=== PATIENT | male | born 1970 | race Hispanic/Latino ===

== ENCOUNTER 2022-04-11 02:22 | Inpatient (IN) | payer MEDICARE ==
[2022-04-11] MEDS ORDERED: SODIUM CHLORIDE 0.9% 1000 ML 1,000 ML IV ONE (02:40)
--- NOTE | 2022-04-11 02:52 | Emergency Department Report ---
HPI - General Time Seen by Provider: 04/11/22 02:31 - HPI HPI: Room 25 The patient is a 52-year-old male presenting with a chief complaint of headache and altered mental status. Patient has a history of diabetes and reportedly lives in his car [place]. The patient's friend went to check on him and found him with decreased responsiveness in his car. The patient states he has had a headache for the past 2 hours and since yesterday he has had syncopal episodes. Patient appears lethargic and does not answer all questions during the interview. Patient denies preceding trauma. ED Past Medical Hx - Past Medical History Hx Hypertension: Yes Hx Diabetes: Yes - Surgical History Past Surgical History?: No - Family History Family history: no significant - Social History Smoking Status: Never Smoker Substance Use Type: Marijuana ED Review of Systems ROS: Stated complaint: HYPERGLYCEMIA Other details as noted in HPI Comment: Unobtainable due to pts medical conditions Neurological: headache Physical Exam - Physical Exam Physical Exam: GENERAL: The patient is well-developed well-nourished male appearing lethargic on stretcher awakening to verbal stimuli. [] HEENT: Normocephalic. Atraumatic. Patient has moist mucous membranes. NECK: Supple. Trachea midline CHEST/LUNGS: Clear to auscultation. There is no respiratory distress noted. HEART/CARDIOVASCULAR: Regular. There is no tachycardia. There is no gallop rub or murmur. ABDOMEN: Abdomen is soft, nontender. Patient has normal bowel sounds. There is no abdominal distention. SKIN: There is no rash. There is no edema. There is no diaphoresis. NEURO: The patient is lethargic but awakens and answers questions to verbal stimuli. The patient is intermittently cooperative with history but not cooperative with neurologic exam. The patient has normal speech MUSCULOSKELETAL: There is no evidence of acute injury. ED Medical Decision Making - Lab Data Result diagrams: 04/11/22 02:45 04/11/22 02:45 - EKG Data -: EKG Interpreted by Me EKG shows normal: sinus rhythm Rate: normal - EKG Data When compared to previous EKG there are: previous EKG unavailable Interpretation: nonspecific ST-T wave matthew (T wave inversions in leads I and aVL) - Radiology Data Radiology results: report reviewed (CT head), image reviewed (CT head) [facility] [address] [place] [address] Cat Scan Report Signed Patient: RONN LINDSAY MR#: [id number] [birth year] : 1970 Acct:[id number] Age/Sex: 52 / M ADM Date: 04/11/22 Loc: ED Attending Dr: Ordering Physician: ELIJAH LOGAN MD Date of Service: 04/11/22 Procedure(s): CT head/brain wo con Accession Number(s): [id number] cc: ELIJAH LOGAN MD CT HEAD WITHOUT CONTRAST INDICATION / CLINICAL INFORMATION: Headache. TECHNIQUE: All CT scans at this location are performed using CT dose reduction for ALARA by means of automated exposure control. COMPARISON: None available. FINDINGS: BRAIN PARENCHYMA: No acute intracranial hemorrhage. No evidence of recent infarct. No mass effect or midline shift. Mild chronic small vessel ischemic changes. VENTRICULAR SYSTEM/EXTRA-AXIAL SPACES: Ventricles are normal for age. No extra- axial fluid collection. ORBITS: Normal as visualized. SKELETAL SYSTEM/SOFT TISSUES: Normal bones and soft tissues. PARANASAL SINUSES/MASTOID AIR CELLS: No significant abnormality. ADDITIONAL FINDINGS: None. IMPRESSION: 1. No acute intracranial abnormality. Signer Name: Reymundo Richards MD Signed: 04/11/2022 3:41 AM Workstation Name: [id number] Transcribed By: SANTA Dictated By: REYMUNDO RICHARDS MD Electronically Authenticated By: REYMUNDO RICHARDS MD Signed Date/Time: 04/11/22340 DD/ 0 TD/TT: - Differential Diagnosis ICH, DKA, electrolyte abnormality, intoxication, dehydration Critical care attestation.: If time is entered above; I have spent that time in minutes in the direct care of this critically ill patient, excluding procedure time. ED Disposition Clinical Impression: Altered mental status, Diabetic hyperosmolar non-ketotic state, Elevated troponin Disposition: ADMITTED INPATIENT Is pt being admited?: Yes Does the pt Need Aspirin: No Condition: Stable Instructions: Diabetes Mellitus Type 2 in Adults (ED) Time of Disposition: 04:40 (Care transferred to hospitalist (Dr. Mcbride))
[2022-04-11 03:02] LABS: Basophils # (Auto) 0.1 K/mm3 (0.0-0.1); Basophils % (Auto) 0.7 % (0.0-1.8); Hematocrit 48.2 % (35.5-45.6); Hemoglobin 15.1 gm/dl (11.8-15.2); Lymphocytes # (Auto) 1.6 K/mm3 (1.2-5.4); Lymphocytes % (Auto) 8.2 % (13.4-35.0); Mean Corpuscular HGB Conc 31 % (32-34); Mean Corpuscular Volume 84 fl (84-94); Monocytes # (Auto) 0.9 K/mm3 (0.0-0.8); Monocytes % (Auto) 4.6 % (0.0-7.3); Platelet Count 240 K/mm3 (140-440); Red Blood Count 5.73 M/mm3 (3.65-5.03); Red Cell Distribution Width 14.8 % (13.2-15.2)
[2022-04-11 03:12] LABS: INR 0.92 (0.87-1.13)
[2022-04-11 03:20] LABS: Creatine Kinase MB 12.7 ng/mL (0.0-4.0)
[2022-04-11 03:22] LABS: BUN/Creatinine Ratio 17; Blood Urea Nitrogen 53 mg/dL (9-20); Calcium 10.2 mg/dL (8.4-10.2); Hemolysis Index 32
--- NOTE | 2022-04-11 03:45 | Cat Scan Report ---
CT HEAD WITHOUT CONTRAST INDICATION / CLINICAL INFORMATION: Headache. TECHNIQUE: All CT scans at this location are performed using CT dose reduction for ALARA by means of automated exposure control. COMPARISON: None available. FINDINGS: BRAIN PARENCHYMA: No acute intracranial hemorrhage. No evidence of recent infarct. No mass effect or midline shift. Mild chronic small vessel ischemic changes. VENTRICULAR SYSTEM/EXTRA-AXIAL SPACES: Ventricles are normal for age. No extra-axial fluid collection . ORBITS: Normal as visualized. SKELETAL SYSTEM/SOFT TISSUES: Normal bones and soft tissues. PARANASAL SINUSES/MASTOID AIR CELLS: No significant abnormality. ADDITIONAL FINDINGS: None. IMPRESSION: 1. No acute intracranial abnormality. Signer Name: Alonso Richards MD Signed: 04/11/2022 3:41 AM Workstation Name: [id number]
[2022-04-11 04:20] LABS: Chol/HDL Ratio 4.88 %; HDL Cholesterol 27 mg/dL (40-59); LDL Cholesterol,Direct TNR mg/dL (50-130)
[2022-04-11 04:40] LABS: Bacteria,Urine 1+ /HPF (Negative); Bilirubin,Urine NEG (Negative); Blood,Urine MOD (Negative); Color,Urine Straw (Yellow); Mucus,Urine FEW /HPF; Protein,Urine <15 mg/dL mg/dL (Negative); RBC,Urine < 1.0 /HPF (0.0-6.0); Urobilinogen,Urine < 2.0 mg/dL (<2.0)
[2022-04-11] MEDS ORDERED: CLOPIDOGREL 300 MG TAB PO ONE (04:40)
[2022-04-11 04:41] LABS: Amphetamine Screen,Urine PRESUMPTIVE NEGATIVE; Benzodiazepines Screen,Urine PRESUMPTIVE NEGATIVE; Cannabinoid Screen,Urine PRESUMPTIVE POSITIVE; Cocaine Screen,Urine PRESUMPTIVE NEGATIVE; Methadone Screen,Urine PRESUMPTIVE NEGATIVE; Opiate Screen,Urine PRESUMPTIVE NEGATIVE
[2022-04-11 05:06] LABS: Calcium 10.3 mg/dL (8.4-10.2)
[2022-04-11] MEDS ORDERED: ACETAMINOPHEN 325 MG TAB PO PRN (05:15)
--- NOTE | 2022-04-11 05:28 | History and Physical Report ---
History of Present Illness Date of examination: 04/11/22 Date of admission: 04/11/22 Chief complaint: Altered mental status History of present illness: 52-year-old male presenting with past medical history of hypertension and diabetes was brought to the emergency room because of headache and altered mental status. Patient has a history of diabetes and reportedly lives [place] his car [place]. The patient's friend went to check on him and found him with decreased responsiveness in his car. The patient states he has had a headache for the past 2 hours and since yesterday he has had syncopal episodes. Patient appears lethargic and does not answer all questions during the interview. Patient denies preceding trauma. In the emergency room patient is found to have glucose of 1147, BUN of 53 creatinine 3.1, bicarb 23, anion gap 31 also patient troponin is 0.0100 and CK8 22. Still going to admit the patient to the ICU we will put the patient IV fluid insulin drip will consult critical care as well as cardiology as well as nephrology for evaluation Past History Past Medical History: diabetes, hypertension Past Surgical History: No surgical history Social history: no significant social history (Marijuana abuse), other Family history: hypertension Medications and Allergies Allergies Allergy/AdvReac Type Severity Reaction Status Date / Time No Known Allergies Allergy Unverified 04/11/22 03:43 Active Meds: Active Medications Acetaminophen (Acetaminophen 325 Mg Tab) 650 mg PO Q4H PRN PRN Reason: Pain MILD(1-3)/Fever >100.5/TORRES Acetaminophen (Acetaminophen 325 Mg Tab) 650 mg PO Q6H PRN PRN Reason: Pain, Mild (1-3) Albuterol (Albuterol 2.5 Mg/3 Ml Nebu) 2.5 mg IH Q3HRT PRN PRN Reason: Shortness Of Breath Albuterol/Ipratropium (Ipratropium/Albuterol Sulfate 3 Ml Ampul.Neb) 1 ampul IH Q6HRT VERNON Aspirin (Aspirin Ec 325 Mg Tab) 325 mg PO QDAY VERNON Atorvastatin Calcium (Atorvastatin 40 Mg Tab) 40 mg PO QHS VERNON Dextrose (Dextrose 50% In Water (25gm) 50 Ml Syringe) 0 ml IV Q30MIN PRN; Protocol PRN Reason: Hypoglycemia Famotidine (Famotidine 20 Mg/2 Ml Inj) 20 mg IV BID VERNON Heparin Sodium (Porcine) (Heparin 5,000 Unit/1 Ml Vial) 5,000 unit SUB-Q Q12HR VERNON Insulin Human Regular 100 (units/ Sodium Chloride) 100 mls @ 10 mls/hr IV TITR VERNON; Protocol Insulin Human Regular 100 (units/ Sodium Chloride) 100 mls @ 1 mls/hr IV TITR VERNON; Protocol Sodium Chloride (Nacl 0.45% 1000 Ml) 1,000 mls @ 150 mls/hr IV DIRECT VERNON Potassium Chloride/Dextrose/Sod Cl (D5w/0.45% Nacl/Kcl 20 Meq) 20 meq in 1,000 mls @ 125 mls/hr IV DIRECT VERNON Morphine Sulfate (Morphine 2 Mg/1 Ml Inj) 2 mg IV Q4H PRN PRN Reason: Pain, Moderate (4-6) Morphine Sulfate (Morphine 4 Mg/1 Ml Inj) 4 mg IV Q4H PRN PRN Reason: Pain , Severe (7-10) Nitroglycerin (Nitroglycerin 0.4 Mg Tab Subl) 0.4 mg SL Q5M PRN PRN Reason: Chest Pain Ondansetron HCl (Ondansetron 4 Mg/2 Ml Inj) 4 mg IV Q8H PRN PRN Reason: Nausea And Vomiting Sodium Chloride (Sodium Chloride 0.9% 10 Ml Flush Syringe) 10 ml IV BID VERNON Sodium Chloride (Sodium Chloride 0.9% 10 Ml Flush Syringe) 10 ml IV PRN PRN PRN Reason: LINE FLUSH Sodium Chloride (Sodium Chloride 0.9% 10 Ml Flush Syringe) 10 ml IV PRN PRN PRN Reason: LINE FLUSH Tramadol HCl (Tramadol 50 Mg Tab) 50 mg PO Q6H PRN PRN Reason: Pain, Moderate (4-6) Review of Systems All systems: negative Constitutional: fatigue, weakness, malaise, lethargy, other (Altered mental status, headache) Exam - Constitutional Vitals: Temp Pulse Resp BP Pulse Ox 157/93 96 04/11/22 03:31 04/11/22 05:05 General appearance: Present: no acute distress, well-nourished - EENT Eyes: Present: PERRL ENT: hearing intact, clear oral mucosa - Neck Neck: Present: supple, normal ROM - Respiratory Respiratory effort: normal Respiratory: bilateral: diminished - Cardiovascular Heart Sounds: Present: S1 & S2. Absent: rub, click - Extremities Extremities: pulses symmetrical, No edema Peripheral Pulses: within normal limits - Abdominal General gastrointestinal: Present: soft, non-tender, non-distended, normal bowel sounds Male genitourinary: Present: normal - Integumentary Integumentary: Present: clear, warm, dry - Musculoskeletal Musculoskeletal: gait normal, strength equal bilaterally - Psychiatric Psychiatric: other (Patient is lethargic) - Neurologic Neurologic: CNII-XII intact, moves all extremities, other (Patient is altered mental status) HEART Score - HEART Score Troponin: Troponin T 0.100 ng/mL (0.00-0.029) H 04/11/22 02:45 Results - Labs CBC & Chem 7: 04/11/22 02:45 04/11/22 04:31 Labs: Laboratory Last Values WBC 19.1 K/mm3 (4.5-11.0) H 04/11/22 02:45 RBC 5.73 M/mm3 (3.65-5.03) H 04/11/22 02:45 Hgb 15.1 gm/dl (11.8-15.2) 04/11/22 02:45 Hct 48.2 % (35.5-45.6) H 04/11/22 02:45 MCV 84 fl (84-94) 04/11/22 02:45 MCH 26 pg (28-32) L 04/11/22 02:45 MCHC 31 % (32-34) L 04/11/22 02:45 RDW 14.8 % (13.2-15.2) 04/11/22 02:45 Plt Count 240 K/mm3 (140-440) 04/11/22 02:45 Lymph % (Auto) 8.2 % (13.4-35.0) L 04/11/22 02:45 Metcalfe % (Auto) 4.6 % (0.0-7.3) 04/11/22 02:45 Eos % (Auto) 0.0 % (0.0-4.3) 04/11/22 02:45 Baso % (Auto) 0.7 % (0.0-1.8) 04/11/22 02:45 Lymph # (Auto) 1.6 K/mm3 (1.2-5.4) 04/11/22 02:45 Metcalfe # (Auto) 0.9 K/mm3 (0.0-0.8) H 04/11/22 02:45 Eos # (Auto) 0.0 K/mm3 (0.0-0.4) 04/11/22 02:45 Baso # (Auto) 0.1 K/mm3 (0.0-0.1) 04/11/22 02:45 Seg Neutrophils % 86.5 % (40.0-70.0) H 04/11/22 02:45 Seg Neutrophils # 16.5 K/mm3 (1.8-7.7) H 04/11/22 02:45 PT 13.4 Sec. (12.2-14.9) 04/11/22 02:45 INR 0.92 (0.87-1.13) 04/11/22 02:45 APTT 21.0 Sec. (24.2-36.6) L 04/11/22 02:45 D-Dimer < 135.00 ng/mlDDU (0-234) 04/11/22 02:45 VBG pH 7.320 (7.320-7.420) 04/11/22 02:45 Sodium 141 mmol/L (137-145) 04/11/22 04:31 Potassium 3.6 mmol/L (3.6-5.0) 04/11/22 04:31 Chloride 93.0 mmol/L (98-107) L 04/11/22 04:31 Carbon Dioxide 23 mmol/L (22-30) 04/11/22 02:45 Anion Gap 31 mmol/L 04/11/22 02:45 BUN 53 mg/dL (9-20) H 04/11/22 02:45 Creatinine 3.1 mg/dL (0.8-1.3) H 04/11/22 02:45 Estimated GFR 24 ml/min 04/11/22 04:31 BUN/Creatinine Ratio 19 % 04/11/22 04:31 Glucose 1147 mg/dL (75-100) H* 04/11/22 02:45 POC Glucose > 600 mg/dL (70-105) H 04/11/22 02:48 Calcium 10.2 mg/dL (8.4-10.2) 04/11/22 02:45 Total Creatine Kinase 822 units/L (55-170) H 04/11/22 02:45 CK-MB (CK-2) 12.7 ng/mL (0.0-4.0) H 04/11/22 02:45 CK-MB (CK-2) Rel Index 1.5 (0-4) 04/11/22 02:45 Troponin T 0.100 ng/mL (0.00-0.029) H 04/11/22 02:45 Triglycerides 527 mg/dL (2-149) H 04/11/22 02:45 Cholesterol 132 mg/dL (50-199) 04/11/22 02:45 LDL Cholesterol Direct TNR 04/11/22 02:45 HDL Cholesterol 27 mg/dL (40-59) L 04/11/22 02:45 Cholesterol/HDL Ratio 4.88 % 04/11/22 02:45 Urine Color Straw (Yellow) 04/11/22 Unknown Urine Turbidity Clear (Clear) 04/11/22 Unknown Urine pH 5.0 (5.0-7.0) 04/11/22 Unknown Ur Specific [place] 1.026 (1.003-1.030) 04/11/22 Unknown Urine Protein <15 mg/dl mg/dL (Negative) 04/11/22 Unknown Urine Glucose (UA) >=500 mg/dL (Negative) 04/11/22 Unknown Urine Ketones 20 mg/dL (Negative) 04/11/22 Unknown Urine Blood Mod (Negative) 04/11/22 Unknown Urine Nitrite Neg (Negative) 04/11/22 Unknown Urine Bilirubin Neg (Negative) 04/11/22 Unknown Urine Urobilinogen < 2.0 mg/dL (<2.0) 04/11/22 Unknown Ur Leukocyte Esterase Neg (Negative) 04/11/22 Unknown Urine WBC (Auto) 2.0 /HPF (0.0-6.0) 04/11/22 Unknown Urine RBC (Auto) < 1.0 /HPF (0.0-6.0) 04/11/22 Unknown U Epithel Cells (Auto) < 1.0 /HPF (0-13.0) 04/11/22 Unknown Urine Bacteria (Auto) 1+ /HPF (Negative) 04/11/22 Unknown Urine Mucus Few /HPF 04/11/22 Unknown Urine Opiates Screen Presumptive negative 04/11/22 Unknown Urine Methadone Screen Presumptive negative 04/11/22 Unknown Ur Barbiturates Screen Presumptive negative 04/11/22 Unknown Ur Phencyclidine Scrn Presumptive negative 04/11/22 Unknown Ur Amphetamines Screen Presumptive negative 04/11/22 Unknown U Benzodiazepines Scrn Presumptive negative 04/11/22 Unknown Urine Cocaine Screen Presumptive negative 04/11/22 Unknown U Marijuana (THC) Screen Presumptive positive 04/11/22 Unknown Plasma/Serum Alcohol < 0.01 % (0-0.07) 04/11/22 02:52 - Imaging and Cardiology CT Scan - head: report reviewed Assessment and Plan VTE prophylaxis?: Chemical Plan of care discussed with patient/family: Yes - Patient Problems (1) Diabetic hyperosmolar non-ketotic state Status: Acute Plan to address problem: Admit the patient to the critical care. NPO. Half-normal saline at the rate of 150 cc/h. Insulin drip as per protocol. We do the serial BMP. We also consult critical care evaluation. Recheck BMP in the morning. Diabetic education (2) Acute metabolic encephalopathy Status: Acute (3) Elevated troponin Status: Acute Plan to address problem: Aspirin 325 mg p.o. daily. Lipitor 40 mg p.o. daily. Nitroglycerin as needed. Serial cardiac enzymes. Echocardiogram. Cardiology evaluation (4) Hypertension Status: Acute Plan to address problem: Hydralazine 10 mg IV every 6 hours as needed. We will monitor the patient closely (5) Acute kidney injury superimposed on CKD Status: Acute Plan to address problem: Avoid nephrotoxic drug. Renally dose medication. Half-normal saline at the rate of 150 cc/h. Nephrology consult. Recheck BMP in the morning (6) DVT prophylaxis Status: Acute Plan to address problem: Heparin 5000 units subcu every 12 hours for DVT prophylaxis. Pepcid 20 mg p.o. twice daily for GI prophylaxis. Patient is a full code
[2022-04-11] MEDS ORDERED: ALBUTEROL 2.5 MG/3 ML NEBU IH PRN (05:30)
[2022-04-11] MEDS ORDERED: SODIUM CHLORIDE 0.9% 1000 ML 1,000 ML ONE ×2 (05:50→13:28)
[2022-04-11] MEDS ORDERED: ONDANSETRON 4 MG/2 ML INJ IV PRN (06:00)
[2022-04-11] MEDS ORDERED: SODIUM CHLORIDE 0.45% 1000 ML 1,000 ML IV SCH (06:00)
[2022-04-11] MEDS ORDERED: DEXTROSE 50% IN WATER (25GM) 50 ML SYRINGE IV PRN (06:00)
[2022-04-11] MEDS ORDERED: NITROGLYCERIN 0.4 MG TAB SUBL SL PRN (06:00)
[2022-04-11] MEDS ORDERED: MORPHINE 2 MG/1 ML INJ IV PRN (06:00)
[2022-04-11] MEDS ORDERED: MORPHINE 4 MG/1 ML INJ IV PRN (06:00)
[2022-04-11] MEDS ORDERED: traMADol 50 MG TAB PO PRN (06:00)
[2022-04-11] MEDS ORDERED: INSULIN REGULAR, HUMAN 100 UNITS in SODIUM CHLORIDE 0.9% 99 ML IV SCH (06:00)
[2022-04-11] MEDS ORDERED: IPRATROPIUM/ALBUTEROL SULFATE 3 ML AMPUL.NEB IH SCH (08:00)
--- NOTE | 2022-04-11 08:26 | Progress Note ---
<NOEWILBILLIERUSTYHARRY - Last Filed: 04/11/22 17:31> Assessment and Plan Assessment and plan: - Patient Problems (1) Diabetic hyperosmolar non-ketotic state Status: Acute Plan to address problem: Continue IV hydration and Insulin drip as per protocol. Serial BMP and Monitor electrolytes and replace PRN (2) Acute metabolic encephalopathy Status: Acute [place] patient to place and time and monitor mental status PRN ativan for agitation Continue IV hydration (3) Elevated troponin Status: Acute Plan to address problem: Aspirin 325 mg p.o. daily. Lipitor 40 mg p.o. daily. Nitroglycerin as needed. Serial cardiac enzymes. Echocardiogram. Cardiology evaluation (4) Hypertension Status: Acute Plan to address problem: Hydralazine 10 mg IV every 6 hours as needed. We will monitor the patient closely Monitor blood pressure (5) Acute kidney injury superimposed on CKD Status: Acute Plan to address problem: Avoid nephrotoxic drug. Renally dose medication. Nephrology consult. Continue aggressive volume resuscitation strict i/os and monitor kidney function (6) Leukocytosis (leucocytosis) Current Visit: Yes Status: Acute Plan to address problem: Unknown cause. Urinalysis showed no evidence of UTI temperature 99.8 Monitor vital signs and WBC Blood culture times times-f/u with result Empiric antibiotic and Will consult ID if needed. (7) Electrolyte imbalance Current Visit: Yes Status: Acute Plan to address problem: Low potassium and phosphate Replace potassium and magnesium Monitor per protocol (8) DVT prophylaxis- SQ heparin Plan to address problem: Heparin 5000 units subcu every 12 hours for DVT prophylaxis. Pepcid 20 mg p.o. twice daily for GI prophylaxis. Patient is a full code The high probability of a clinically significant, sudden or life threatening deterioration of the [multiple] system(s) required my full and direct attention, intervention and personal management. The aggregate critical care time was [60] minutes. This time is in addition to time spent performing reported procedures but includes the following: [x] Data Review and interpretation [x] Patient assessment and monitoring of vital signs [x] Documentation [x] Medication orders and management Disposition Plan: icu Total Time Spent with Patient (Minutes): 60 Total Time Spent with Patient (Minutes): 60 minutes History Interval history: Patient seen at bedside. Patient agitated and pulled his IV access. Ativan every 4hrs PRN ordered. Will apply bilateral arm restraint for safety if needed. Elevated WBC 19.1-Blood culture ordered. Reviewed Imaging Engineer note and reces-ROBERT likely 2/2 to elevated blood sugar Called by patient nurse-patient restless and agitated-on bilateral arm mitten. Pt was given ativan 2mg at 12:28 pm and he is on precedex for sedation. At 1300pm-pt blood pressure dropped 67/49 with map of 41. Patient assessed-he has shallow breathing and not responsive. Ramazicon 0.2mg given IV. NS bolus started. Patient condition improved. breathing stable and regular. Blood pressure improved 81/47 and 95/64 with map of 71. Hospitalist Physical - Constitutional Vitals: Temp Pulse Resp BP Pulse Ox 93 H 10 L 119/68 92 04/11/22 06:45 04/11/22 06:45 04/11/22 07:57 04/11/22 06:45 General appearance: Present: mild distress, obese, other (agitation and restless) - EENT ENT: hearing intact - Respiratory Respiratory effort: normal Respiratory: bilateral: diminished - Cardiovascular Rhythm: regular Heart Sounds: Present: S1 & S2 - Extremities Extremities: no ischemia, No edema, Full ROM - Integumentary Integumentary: Present: clear, warm, dry - Psychiatric Psychiatric: agitated - Allied Health Allied health notes reviewed: nursing HEART Score - HEART Score Troponin: Troponin T 0.100 ng/mL (0.00-0.029) H 04/11/22 02:45 Results - Labs CBC & Chem 7: 04/11/22 06:30 04/11/22 13:07 Labs: Laboratory Last Values WBC 19.1 K/mm3 (4.5-11.0) H 04/11/22 02:45 RBC 5.73 M/mm3 (3.65-5.03) H 04/11/22 02:45 Hgb 15.1 gm/dl (11.8-15.2) 04/11/22 02:45 Hct 48.2 % (35.5-45.6) H 04/11/22 02:45 MCV 84 fl (84-94) 04/11/22 02:45 MCH 26 pg (28-32) L 04/11/22 02:45 MCHC 31 % (32-34) L 04/11/22 02:45 RDW 14.8 % (13.2-15.2) 04/11/22 02:45 Plt Count 240 K/mm3 (140-440) 04/11/22 02:45 Lymph % (Auto) 8.2 % (13.4-35.0) L 04/11/22 02:45 [place] % (Auto) 4.6 % (0.0-7.3) 04/11/22 02:45 Eos % (Auto) 0.0 % (0.0-4.3) 04/11/22 02:45 Baso % (Auto) 0.7 % (0.0-1.8) 04/11/22 02:45 Lymph # (Auto) 1.6 K/mm3 (1.2-5.4) 04/11/22 02:45 [place] # (Auto) 0.9 K/mm3 (0.0-0.8) H 04/11/22 02:45 Eos # (Auto) 0.0 K/mm3 (0.0-0.4) 04/11/22 02:45 Baso # (Auto) 0.1 K/mm3 (0.0-0.1) 04/11/22 02:45 Seg Neutrophils % 86.5 % (40.0-70.0) H 04/11/22 02:45 Seg Neutrophils # 16.5 K/mm3 (1.8-7.7) H 04/11/22 02:45 PT 13.4 Sec. (12.2-14.9) 04/11/22 02:45 INR 0.92 (0.87-1.13) 04/11/22 02:45 APTT 21.0 Sec. (24.2-36.6) L 04/11/22 02:45 D-Dimer < 135.00 ng/mlDDU (0-234) 04/11/22 02:45 VBG pH 7.320 (7.320-7.420) 04/11/22 02:45 Sodium 141 mmol/L (137-145) 04/11/22 04:31 Potassium 3.6 mmol/L (3.6-5.0) 04/11/22 04:31 Chloride 93.0 mmol/L (98-107) L 04/11/22 04:31 Carbon Dioxide 20 mmol/L (22-30) L 04/11/22 04:31 Anion Gap 32 mmol/L 04/11/22 04:31 BUN 54 mg/dL (9-20) H 04/11/22 04:31 Creatinine 2.8 mg/dL (0.8-1.3) H 04/11/22 04:31 Estimated GFR 24 ml/min 04/11/22 04:31 BUN/Creatinine Ratio 19 % 04/11/22 04:31 Glucose 1084 mg/dL (75-100) H* 04/11/22 04:31 POC Glucose > 600 mg/dL (70-105) H 04/11/22 02:48 Calcium 10.3 mg/dL (8.4-10.2) H 04/11/22 04:31 Phosphorus 5.10 mg/dL (2.5-4.5) H 04/11/22 04:31 Magnesium 3.50 mg/dL (1.7-2.3) H 04/11/22 04:31 Total Creatine Kinase 822 units/L (55-170) H 04/11/22 02:45 CK-MB (CK-2) 12.7 ng/mL (0.0-4.0) H 04/11/22 02:45 CK-MB (CK-2) Rel Index 1.5 (0-4) 04/11/22 02:45 Troponin T 0.100 ng/mL (0.00-0.029) H 04/11/22 02:45 Triglycerides 527 mg/dL (2-149) H 04/11/22 02:45 Cholesterol 132 mg/dL (50-199) 04/11/22 02:45 LDL Cholesterol Direct TNR 04/11/22 02:45 HDL Cholesterol 27 mg/dL (40-59) L 04/11/22 02:45 Cholesterol/HDL Ratio 4.88 % 04/11/22 02:45 Urine Color Straw (Yellow) 04/11/22 Unknown Urine Turbidity Clear (Clear) 04/11/22 Unknown Urine pH 5.0 (5.0-7.0) 04/11/22 Unknown Ur Specific [place] 1.026 (1.003-1.030) 04/11/22 Unknown Urine Protein <15 mg/dl mg/dL (Negative) 04/11/22 Unknown Urine Glucose (UA) >=500 mg/dL (Negative) 04/11/22 Unknown Urine Ketones 20 mg/dL (Negative) 04/11/22 Unknown Urine Blood Mod (Negative) 04/11/22 Unknown Urine Nitrite Neg (Negative) 04/11/22 Unknown Urine Bilirubin Neg (Negative) 04/11/22 Unknown Urine Urobilinogen < 2.0 mg/dL (<2.0) 04/11/22 Unknown Ur Leukocyte Esterase Neg (Negative) 04/11/22 Unknown Urine WBC (Auto) 2.0 /HPF (0.0-6.0) 04/11/22 Unknown Urine RBC (Auto) < 1.0 /HPF (0.0-6.0) 04/11/22 Unknown U Epithel Cells (Auto) < 1.0 /HPF (0-13.0) 04/11/22 Unknown Urine Bacteria (Auto) 1+ /HPF (Negative) 04/11/22 Unknown Urine Mucus Few /HPF 04/11/22 Unknown Urine Opiates Screen Presumptive negative 04/11/22 Unknown Urine Methadone Screen Presumptive negative 04/11/22 Unknown Ur Barbiturates Screen Presumptive negative 04/11/22 Unknown Ur Phencyclidine Scrn Presumptive negative 04/11/22 Unknown Ur Amphetamines Screen Presumptive negative 04/11/22 Unknown U Benzodiazepines Scrn Presumptive negative 04/11/22 Unknown Urine Cocaine Screen Presumptive negative 04/11/22 Unknown U Marijuana (THC) Screen Presumptive positive 04/11/22 Unknown Drugs of Abuse Note Disclamer 04/11/22 Unknown Plasma/Serum Alcohol < 0.01 % (0-0.07) 04/11/22 02:52 Active Medications - Current Medications Current Medications: Generic Name Dose Route Start Last Admin Trade Name Freq PRN Reason Stop Dose Admin Acetaminophen 650 mg 04/11/22 06:00 Acetaminophen 325 Mg Tab PO Q4H PRN Pain MILD(1-3)/Fever >100.5/TORRES Albuterol 2.5 mg 04/11/22 05:30 Albuterol 2.5 Mg/3 Ml Nebu IH Q3HRT PRN Shortness Of Breath Albuterol/Ipratropium 1 ampul 04/11/22 08:00 04/11/22 07:23 Ipratropium/Albuterol Sulfate 3 Ml Ampul.Neb IH Not Given Q6HRT VERNON Aspirin 325 mg 04/11/22 10:00 Aspirin Ec 325 Mg Tab PO QDAY [facility] Atorvastatin Calcium 40 mg 04/11/22 22:00 Atorvastatin 40 Mg Tab PO QHS [facility] Dextrose 0 ml 04/11/22 06:00 Dextrose 50% In Water (25gm) 50 Ml Syringe IV Q30MIN PRN Hypoglycemia Protocol Famotidine 10 mg 04/11/22 10:00 Famotidine 20 Mg/2 Ml Inj IV BID [facility] Heparin Sodium (Porcine) 5,000 unit 04/11/22 10:00 Heparin 5,000 Unit/1 Ml Vial SUB-Q Q12HR [facility] Insulin Human Regular 100 100 mls @ 10 mls/hr 04/11/22 05:00 units/ Sodium Chloride IV TITR VERNON Protocol 10 UNITS/HR Sodium Chloride 1,000 mls @ 150 mls/hr 04/11/22 06:00 Nacl 0.45% 1000 Ml IV DIRECT [facility] Potassium Chloride/Dextrose/Sod Cl 20 meq in 1,000 mls @ 125 mls/hr 04/11/22 06:00 D5w/0.45% Nacl/Kcl 20 Meq IV DIRECT [facility] Lorazepam 2 mg 04/11/22 08:19 Lorazepam 2 Mg/Ml Vial IV Q4H PRN Agitation Morphine Sulfate 2 mg 04/11/22 06:00 Morphine 2 Mg/1 Ml Inj IV Q4H PRN Pain, Moderate (4-6) Morphine Sulfate 4 mg 04/11/22 06:00 Morphine 4 Mg/1 Ml Inj IV Q4H PRN Pain , Severe (7-10) Nitroglycerin 0.4 mg 04/11/22 06:00 Nitroglycerin 0.4 Mg Tab Subl SL Q5M PRN Chest Pain Ondansetron HCl 4 mg 04/11/22 06:00 Ondansetron 4 Mg/2 Ml Inj IV Q8H PRN Nausea And Vomiting Sodium Chloride 10 ml 04/11/22 10:00 Sodium Chloride 0.9% 10 Ml Flush Syringe IV BID [facility] Sodium Chloride 10 ml 04/11/22 06:00 Sodium Chloride 0.9% 10 Ml Flush Syringe IV PRN PRN LINE FLUSH Tramadol HCl 50 mg 04/11/22 06:00 Tramadol 50 Mg Tab PO Q6H PRN Pain, Moderate (4-6) Nutrition/Malnutrition Assess - Malnutrition Assessment Minimum of two criteria: No physical signs of malnutrition - Attestation Statement I have reviewed and agreed w/ Malnutrition eval & tx plan: Yes <ABNER [place]AM - Last Filed: 04/11/22 19:02> Hospitalist Physical - Constitutional Vitals: Temp Pulse Resp BP Pulse Ox 98.1 F 96 H 18 175/99 85 04/11/22 16:22 04/11/22 18:21 04/11/22 18:21 04/11/22 18:21 04/11/22 18:21 HEART Score - HEART Score Troponin: Troponin T 0.466 ng/mL (0.00-0.029) H* D 04/11/22 13:07 Results - Labs CBC & Chem 7: 04/11/22 06:30 04/11/22 17:51 Labs: Laboratory Last Values WBC 24.9 K/mm3 (4.5-11.0) H 04/11/22 06:30 RBC 5.96 M/mm3 (3.65-5.03) H 04/11/22 06:30 Hgb 15.3 gm/dl (11.8-15.2) H 04/11/22 06:30 Hct 48.9 % (35.5-45.6) H 04/11/22 06:30 MCV 82 fl (84-94) L 04/11/22 06:30 MCH 26 pg (28-32) L 04/11/22 06:30 MCHC 31 % (32-34) L 04/11/22 06:30 RDW 14.3 % (13.2-15.2) 04/11/22 06:30 Plt Count 248 K/mm3 (140-440) 04/11/22 06:30 Lymph % (Auto) 8.2 % (13.4-35.0) L 04/11/22 02:45 [place] % (Auto) 4.6 % (0.0-7.3) 04/11/22 02:45 Eos % (Auto) 0.0 % (0.0-4.3) 04/11/22 02:45 Baso % (Auto) 0.7 % (0.0-1.8) 04/11/22 02:45 Lymph # (Auto) 1.6 K/mm3 (1.2-5.4) 04/11/22 02:45 [place] # (Auto) 0.9 K/mm3 (0.0-0.8) H 04/11/22 02:45 Eos # (Auto) 0.0 K/mm3 (0.0-0.4) 04/11/22 02:45 Baso # (Auto) 0.1 K/mm3 (0.0-0.1) 04/11/22 02:45 Add Manual Diff Complete 04/11/22 06:30 Total Counted 100 04/11/22 06:30 Seg Neutrophils % 86.5 % (40.0-70.0) H 04/11/22 02:45 Seg Neuts % (Manual) 90.0 % (40.0-70.0) H 04/11/22 06:30 Band Neutrophils % 0 % 04/11/22 06:30 Lymphocytes % (Manual) 6.0 % (13.4-35.0) L 04/11/22 06:30 Reactive Lymphs % (Man) 0 % 04/11/22 06:30 Monocytes % (Manual) 4.0 % (0.0-7.3) 04/11/22 06:30 Eosinophils % (Manual) 0 % (0.0-4.3) 04/11/22 06:30 Basophils % (Manual) 0 % (0.0-1.8) 04/11/22 06:30 Metamyelocytes % 0 % 04/11/22 06:30 Myelocytes % 0 % 04/11/22 06:30 Promyelocytes % 0 % 04/11/22 06:30 Blast Cells % 0 % 04/11/22 06:30 Nucleated RBC % Not Reportable 04/11/22 06:30 Seg Neutrophils # 16.5 K/mm3 (1.8-7.7) H 04/11/22 02:45 Seg Neutrophils # Man 22.4 K/mm3 (1.8-7.7) H 04/11/22 06:30 Band Neutrophils # 0.0 K/mm3 04/11/22 06:30 Lymphocytes # (Manual) 1.5 K/mm3 (1.2-5.4) 04/11/22 06:30 Abs React Lymphs (Man) 0.0 K/mm3 04/11/22 06:30 Monocytes # (Manual) 1.0 K/mm3 (0.0-0.8) H 04/11/22 06:30 Eosinophils # (Manual) 0.0 K/mm3 (0.0-0.4) 04/11/22 06:30 Basophils # (Manual) 0.0 K/mm3 (0.0-0.1) 04/11/22 06:30 Metamyelocytes # 0.0 K/mm3 04/11/22 06:30 Myelocytes # 0.0 K/mm3 04/11/22 06:30 Promyelocytes # 0.0 K/mm3 04/11/22 06:30 Blast Cells # 0.0 K/mm3 04/11/22 06:30 WBC Morphology Not Reportable 04/11/22 06:30 Hypersegmented Neuts Not Reportable 04/11/22 06:30 Hyposegmented Neuts Not Reportable 04/11/22 06:30 Hypogranular Neuts Not Reportable 04/11/22 06:30 Smudge Cells Not Reportable 04/11/22 06:30 Toxic Granulation 1+ 04/11/22 06:30 Toxic Vacuolation Not Reportable 04/11/22 06:30 Dohle Bodies Not Reportable 04/11/22 06:30 Pelger-Huet Anomaly Not Reportable 04/11/22 06:30 Jewell Rods Not Reportable 04/11/22 06:30 Platelet Estimate Consistent w auto 04/11/22 06:30 Clumped Platelets Not Reportable 04/11/22 06:30 Plt Clumps, EDTA Not Reportable 04/11/22 06:30 Large Platelets Not Reportable 04/11/22 06:30 Giant Platelets Not Reportable 04/11/22 06:30 Platelet Satelliting Not Reportable 04/11/22 06:30 Plt Morphology Comment Not Reportable 04/11/22 06:30 RBC Morphology Not Reportable 04/11/22 06:30 Dimorphic RBCs Not Reportable 04/11/22 06:30 Polychromasia Not Reportable 04/11/22 06:30 Hypochromasia Not Reportable 04/11/22 06:30 Poikilocytosis Not Reportable 04/11/22 06:30 Anisocytosis 1+ 04/11/22 06:30 Microcytosis Not Reportable 04/11/22 06:30 Macrocytosis Not Reportable 04/11/22 06:30 Spherocytes Not Reportable 04/11/22 06:30 Pappenheimer Bodies Not Reportable 04/11/22 06:30 Sickle Cells Not Reportable 04/11/22 06:30 Target Cells Not Reportable 04/11/22 06:30 Tear Drop Cells Not Reportable 04/11/22 06:30 Ovalocytes Not Reportable 04/11/22 06:30 Helmet Cells Not Reportable 04/11/22 06:30 Parikh-Myrtle Bodies Not Reportable 04/11/22 06:30 [place] Rings Not Reportable 04/11/22 06:30 Charanjit Cells Not Reportable 04/11/22 06:30 Bite Cells Not Reportable 04/11/22 06:30 Crenated Cell Not Reportable 04/11/22 06:30 Elliptocytes Not Reportable 04/11/22 06:30 Acanthocytes (Spur) Not Reportable 04/11/22 06:30 Rouleaux Not Reportable 04/11/22 06:30 Hemoglobin C Crystals Not Reportable 04/11/22 06:30 Schistocytes Not Reportable 04/11/22 06:30 Malaria parasites Not Reportable 04/11/22 06:30 Jonathan Bodies Not Reportable 04/11/22 06:30 Hem Pathologist Commnt No 04/11/22 06:30 PT 13.4 Sec. (12.2-14.9) 04/11/22 02:45 INR 0.92 (0.87-1.13) 04/11/22 02:45 APTT 21.0 Sec. (24.2-36.6) L 04/11/22 02:45 D-Dimer < 135.00 ng/mlDDU (0-234) 04/11/22 02:45 ABG pH 7.419 pH Units (7.350-7.450) 04/11/22 18:30 ABG pCO2 40.8 mm Hg 04/11/22 18:30 ABG pO2 141.9 mm Hg (80.0-90.0) H 04/11/22 18:30 ABG HCO3 25.8 mmol/L (20.0-26.0) 04/11/22 18:30 ABG O2 Saturation 98.8 % (95.0-99.0) 04/11/22 18:30 ABG O2 Content 21.3 (0.0-44) 04/11/22 18:30 ABG Base Excess 1.3 mmol/L (-2.0-3.0) 04/11/22 18:30 ABG Hemoglobin 15.4 gm/dl (14.0-18.0) 04/11/22 18:30 ABG Carboxyhemoglobin 1.1 % (0.0-5.0) 04/11/22 18:30 ABG Methemoglobin 0.5 % (0.0-1.5) 04/11/22 18:30 VBG pH 7.320 (7.320-7.420) 04/11/22 02:45 Oxyhemoglobin 97.1 % (95.0-99.0) 04/11/22 18:30 FiO2 100 % 04/11/22 18:30 Sodium 160 mmol/L (137-145) H 04/11/22 17:51 Potassium 3.0 mmol/L (3.6-5.0) L 04/11/22 17:51 Chloride 115.9 mmol/L (98-107) H 04/11/22 17:51 Carbon Dioxide 17 mmol/L (22-30) L 04/11/22 17:51 Anion Gap 30 mmol/L 04/11/22 17:51 BUN 57 mg/dL (9-20) H 04/11/22 17:51 Creatinine 3.6 mg/dL (0.8-1.3) H 04/11/22 17:51 Estimated GFR 18 ml/min 04/11/22 17:51 BUN/Creatinine Ratio 16 % 04/11/22 17:51 Glucose 154 mg/dL (75-100) H 04/11/22 17:51 POC Glucose 119 mg/dL (70-105) H 04/11/22 17:08 Calcium 10.4 mg/dL (8.4-10.2) H 04/11/22 17:51 Phosphorus 1.50 mg/dL (2.5-4.5) L D 04/11/22 06:30 Magnesium 3.80 mg/dL (1.7-2.3) H 04/11/22 06:30 Total Creatine Kinase 822 units/L (55-170) H 04/11/22 02:45 CK-MB (CK-2) 12.7 ng/mL (0.0-4.0) H 04/11/22 02:45 CK-MB (CK-2) Rel Index 1.5 (0-4) 04/11/22 02:45 Troponin T 0.466 ng/mL (0.00-0.029) H* D 04/11/22 13:07 Triglycerides 527 mg/dL (2-149) H 04/11/22 02:45 Cholesterol 132 mg/dL (50-199) 04/11/22 02:45 LDL Cholesterol Direct TNR 04/11/22 02:45 HDL Cholesterol 27 mg/dL (40-59) L 04/11/22 02:45 Cholesterol/HDL Ratio 4.88 % 04/11/22 02:45 Urine Color Straw (Yellow) 04/11/22 Unknown Urine Turbidity Clear (Clear) 04/11/22 Unknown Urine pH 5.0 (5.0-7.0) 04/11/22 Unknown Ur Specific [place] 1.026 (1.003-1.030) 04/11/22 Unknown Urine Protein <15 mg/dl mg/dL (Negative) 04/11/22 Unknown Urine Glucose (UA) >=500 mg/dL (Negative) 04/11/22 Unknown Urine Ketones 20 mg/dL (Negative) 04/11/22 Unknown Urine Blood Mod (Negative) 04/11/22 Unknown Urine Nitrite Neg (Negative) 04/11/22 Unknown Urine Bilirubin Neg (Negative) 04/11/22 Unknown Urine Urobilinogen < 2.0 mg/dL (<2.0) 04/11/22 Unknown Ur Leukocyte Esterase Neg (Negative) 04/11/22 Unknown Urine WBC (Auto) 2.0 /HPF (0.0-6.0) 04/11/22 Unknown Urine RBC (Auto) < 1.0 /HPF (0.0-6.0) 04/11/22 Unknown U Epithel Cells (Auto) < 1.0 /HPF (0-13.0) 04/11/22 Unknown Urine Bacteria (Auto) 1+ /HPF (Negative) 04/11/22 Unknown Urine Mucus Few /HPF 04/11/22 Unknown Urine Opiates Screen Presumptive negative 04/11/22 Unknown Urine Methadone Screen Presumptive negative 04/11/22 Unknown Ur Barbiturates Screen Presumptive negative 04/11/22 Unknown Ur Phencyclidine Scrn Presumptive negative 04/11/22 Unknown Ur Amphetamines Screen Presumptive negative 04/11/22 Unknown U Benzodiazepines Scrn Presumptive negative 04/11/22 Unknown Urine Cocaine Screen Presumptive negative 04/11/22 Unknown U Marijuana (THC) Screen Presumptive positive 04/11/22 Unknown Drugs of Abuse Note Disclamer 04/11/22 Unknown Plasma/Serum Alcohol < 0.01 % (0-0.07) 04/11/22 02:52 Microbiology: Microbiology 04/11/22 13:07 Peripheral/Venous Blood Culture - Preliminary Culture in Progress [place]/IV: Voiding Method Indwelling Catheter Active Medications - Current Medications Current Medications: Generic Name Dose Route Start Last Admin Trade Name Freq PRN Reason Stop Dose Admin Acetaminophen 650 mg 04/11/22 06:00 Acetaminophen 325 Mg Tab PO Q4H PRN Pain MILD(1-3)/Fever >100.5/TORRES Albuterol 2.5 mg 04/11/22 05:30 Albuterol 2.5 Mg/3 Ml Nebu IH Q3HRT PRN Shortness Of Breath Aspirin 325 mg 04/11/22 10:00 04/11/22 10:09 Aspirin Ec 325 Mg Tab PO Not Given QDAY VERNON Atorvastatin Calcium 40 mg 04/11/22 22:00 Atorvastatin 40 Mg Tab PO QHS VERNON Dextrose 0 ml 04/11/22 06:00 Dextrose 50% In Water (25gm) 50 Ml Syringe IV Q30MIN PRN Hypoglycemia Protocol Famotidine 10 mg 04/11/22 10:00 04/11/22 09:20 Famotidine 20 Mg/2 Ml Inj IV 10 mg BID VERNON Administration Famotidine 20 mg 04/11/22 22:00 Famotidine 20 Mg/2 Ml Inj IV BID VERNON Fentanyl 50 mcg 04/11/22 18:25 Fentanyl 100 Mcg/2 Ml Inj IV Q10MIN PRN ANALGESIA Haloperidol Lactate 5 mg 04/11/22 11:25 04/11/22 11:43 Haloperidol Lactate 5 Mg/1 Ml Inj IV 5 mg Q6H PRN Administration Agitation Heparin Sodium (Porcine) 5,000 unit 04/11/22 10:00 04/11/22 09:20 Heparin 5,000 Unit/1 Ml Vial SUB-Q 5,000 unit Q12HR VERNON Administration Hydrophilic Ointment 1 applic 04/11/22 18:25 Lip Therapy Vaseline TP Q2HR PRN Dry Lips Insulin Human Regular 100 100 mls @ 10 mls/hr 04/11/22 05:00 04/11/22 18:22 units/ Sodium Chloride IV 0 units/hr TITR VERNON 0 mls/hr Titration Protocol 10 UNITS/HR Sodium Chloride 1,000 mls @ 150 mls/hr 04/11/22 06:00 04/11/22 16:12 Nacl 0.45% 1000 Ml IV Infused DIRECT VERNON Infusion Potassium Chloride/Dextrose/Sod Cl 20 meq in 1,000 mls @ 125 mls/hr 04/11/22 06:00 04/11/22 17:15 D5w/0.45% Nacl/Kcl 20 Meq IV 125 mls/hr DIRECT VERNON Administration Dexmedetomidine HCl 200 mcg/ 50 mls @ 7.258 mls/hr 04/11/22 10:00 04/11/22 18:27 Sodium Chloride IV 0.5 mcg/kg/hr TITRATE VERNON 18.144 mls/hr Administration Protocol 0.2 MCG/KG/HR Ceftriaxone Sodium 1 gm in 50 mls @ 100 mls/hr 04/11/22 11:00 04/11/22 11:23 Rocephin/Ns 1 Gm/50 Ml IV 100 mls/hr Q24H VERNON Administration Protocol Potassium Phosphate 30 mmol/ 510 mls @ 85 mls/hr 04/11/22 15:14 04/11/22 15 :39 Sodium Chloride IV 04/11/22 21:13 85 mls/hr ONCE ONE Administration Potassium Chloride/Sodium Chloride 20 meq in 1,000 mls @ 150 mls/hr 04/11/22 17:00 04/11/22 17:17 Ns 0.45/Kcl 20meq IV 0 mls/hr DIRECT VERNON Infusion Potassium Chloride 10 meq in 100 mls @ 100 mls/hr 04/11/22 19:00 04/11/22 18:44 Kcl 10meq/100ml IV 04/11/22 22:59 100 mls/hr Q1H VERNON Administration Fentanyl Citrate 2,000 mcg in 100 mls @ 7.258 mls/hr 04/11/22 19:00 Fentanyl Drip Premix IV TITR VERNON Protocol 1 MCG/KG/HR Lorazepam 2 mg 04/11/22 08:30 04/11/22 12:28 Lorazepam 2 Mg/Ml Vial IV 2 mg Q4H PRN Administration Agitation Metoprolol Tartrate 12.5 mg 04/11/22 14:00 04/11/22 13:39 Metoprolol Tartrate 25 Mg Tab PO Not Given BID VERNON Morphine Sulfate 2 mg 04/11/22 06:00 Morphine 2 Mg/1 Ml Inj IV Q4H PRN Pain, Moderate (4-6) Morphine Sulfate 4 mg 04/11/22 06:00 Morphine 4 Mg/1 Ml Inj IV Q4H PRN Pain , Severe (7-10) Multi-Ingred Cream/Lotion/Oil/Oint 1 applic 04/11/22 18:25 Mineral Oil/Petrolatum, White Ophth Oint 3.5 Gm OU Q4HR PRN Dry Eye(s) Nitroglycerin 0.4 mg 04/11/22 06:00 Nitroglycerin 0.4 Mg Tab Subl SL Q5M PRN Chest Pain Ondansetron HCl 4 mg 04/11/22 06:00 Ondansetron 4 Mg/2 Ml Inj IV Q8H PRN Nausea And Vomiting Senna/Docusate Sodium 1 tab 04/11/22 22:00 Sennosides/Docusate Sodium 8.6/50 Mg Tab FEEDTUBE BID VERNON Sodium Chloride 10 ml 04/11/22 10:00 04/11/22 09:16 Sodium Chloride 0.9% 10 Ml Flush Syringe IV 10 ml BID VERNON Administration Sodium Chloride 10 ml 04/11/22 06:00 Sodium Chloride 0.9% 10 Ml Flush Syringe IV PRN PRN LINE FLUSH Tramadol HCl 50 mg 04/11/22 06:00 Tramadol 50 Mg Tab PO Q6H PRN Pain, Moderate (4-6) Nutrition/Malnutrition Assess - Dietary Evaluation Nutrition/Malnutrition Findings: Nutrition Notes Start: 04/11/22 17:56 Freq: Status: Active Protocol: Document 04/11/22 17:56 ESTRELLA (Rec: 04/11/22 18:05 ESTRELLA [id number]) Nutrition Notes Need for Assessment generated from: MD Order,Education Initial or Follow up Brief Note Current Diagnosis Acute Kidney Injury,CKD(stage I-IV),Diabetes,Hypertension Other Pertinent Diagnosis Metabolic Encephalopathy, Electrolyte Imbalance, Leukocytosis. Current Diet NPO (since 04/11 05:16). Height 6 ft Weight 145.15 kg [place] Body Weight (kg) 80.90 BMI 43.4 Weight change and time frame None provided at admission. Weight Status Morbidly Obese Subjective/Other Information RD consult for nutrition education assessment. Pt currently on NPO. Pt is on Room Air, O2 saturation @ 95% according to Physical Assessment History notes. Pt still in critical condition , not a candidate for Nutrition Education at the time, will assess feasibility on F/U. Percent of energy/protein needs met: Pt currently on NPO. Nutrition Intervention Follow-Up By: 04/15/22 Additional Comments Nutrition education will be provided on F/U, if feasible. Continue monitoring food tolerance, %PO intake of meals , and BM.
[2022-04-11] MEDS: LORazepam 2 MG/ML VIAL IV PRN ×2 (08:31→12:28)
[2022-04-11] MEDS: INSULIN REGULAR, HUMAN 100 UNITS in SODIUM CHLORIDE 0.9% 99 ML IV SCH ×3 (09:13→15:30)
[2022-04-11] MEDS: HEPARIN 5,000 UNIT/1 ML VIAL SUB-Q SCH ×2 (09:20→22:19)
[2022-04-11] MEDS: FAMOTIDINE 20 MG/2 ML INJ IV SCH ×2 (09:20→22:58)
[2022-04-11 09:36] LABS: Calcium 10.7 mg/dL (8.4-10.2)
[2022-04-11 09:43] LABS: Hematocrit 48.9 % (35.5-45.6); Hemoglobin 15.3 gm/dl (11.8-15.2); Mean Corpuscular HGB Conc 31 % (32-34); Mean Corpuscular Volume 82 fl (84-94); Platelet Count 248 K/mm3 (140-440); Red Blood Count 5.96 M/mm3 (3.65-5.03); Red Cell Distribution Width 14.3 % (13.2-15.2)
--- NOTE | 2022-04-11 09:43 | Consultation ---
<DIONICIO FERRER - Last Filed: 04/11/22 09:44> History of Present Illness - Reason for Consult Consult date: 04/11/22 acute renal failure, chronic renal failure, hypokalemia - History of Present Illness 52-year-old male presenting with past medical history of hypertension and diabetes was brought to the emergency room because of headache and altered mental status. Patient has a history of diabetes and reportedly lives in his car at a [place] station. The patient's friend went to check on him and found him with decreased responsiveness in his car. The patient states he has had a headache for the past 2 hours and since yesterday he has had syncopal episodes. Patient appears lethargic and does not answer all questions during the interview. Patient denies preceding trauma. In the emergency room patient is found to have glucose of 1147, BUN of 53 creati nine 3.1, bicarb 23, anion gap 31 also patient troponin is 0.0100 and CK8 22. Still going to admit the patient to the ICU we will put the patient IV fluid insulin drip will consult critical care as well as cardiology as well as nephrology for evaluation Past History Past Medical History: diabetes, hypertension Past Surgical History: No surgical history Social history: no significant social history (Marijuana abuse), other Family history: hypertension Review of Systems All systems: negative Constitutional: fatigue, weakness, malaise, lethargy, other (Altered mental status, headache) Past History Past Medical History: diabetes, hypertension Past Surgical History: No surgical history Social history: no significant social history (Marijuana abuse), other Family history: hypertension Medications and Allergies Allergies Allergy/AdvReac Type Severity Reaction Status Date / Time No Known Allergies Allergy Unverified 04/11/22 03:43 Active Meds: Active Medications Acetaminophen (Acetaminophen 325 Mg Tab) 650 mg PO Q4H PRN PRN Reason: Pain MILD(1-3)/Fever >100.5/TORRES Albuterol (Albuterol 2.5 Mg/3 Ml Nebu) 2.5 mg IH Q3HRT PRN PRN Reason: Shortness Of Breath Albuterol/Ipratropium (Ipratropium/Albuterol Sulfate 3 Ml Ampul.Neb) 1 ampul IH Q6HRT [facility] Last Admin: 04/11/22 07:23 Dose: Not Given Aspirin (Aspirin Ec 325 Mg Tab) 325 mg PO QDAY [facility] Atorvastatin Calcium (Atorvastatin 40 Mg Tab) 40 mg PO QHS [facility] Dextrose (Dextrose 50% In Water (25gm) 50 Ml Syringe) 0 ml IV Q30MIN PRN; Protocol PRN Reason: Hypoglycemia Famotidine (Famotidine 20 Mg/2 Ml Inj) 10 mg IV BID [facility] Last Admin: 04/11/22 09:20 Dose: 10 mg Heparin Sodium (Porcine) (Heparin 5,000 Unit/1 Ml Vial) 5,000 unit SUB-Q Q12HR [facility] Last Admin: 04/11/22 09:20 Dose: 5,000 unit Insulin Human Regular 100 (units/ Sodium Chloride) 100 mls @ 10 mls/hr IV TITR [facility]; Protocol Last Admin: 04/11/22 09:13 Dose: 11 units/hr, 11 mls/hr Sodium Chloride (Nacl 0.45% 1000 Ml) 1,000 mls @ 150 mls/hr IV DIRECT [facility] Last Admin: 04/11/22 09:21 Dose: 150 mls/hr Potassium Chloride/Dextrose/Sod Cl (D5w/0.45% Nacl/Kcl 20 Meq) 20 meq in 1,000 mls @ 125 mls/hr IV DIRECT [facility] Dexmedetomidine HCl 200 mcg/ (Sodium Chloride) 50 mls @ 7.258 mls/hr IV TITRATE [facility]; Protocol Lorazepam (Lorazepam 2 Mg/Ml Vial) 2 mg IV Q4H PRN PRN Reason: Agitation Last Admin: 04/11/22 08:31 Dose: 2 mg Morphine Sulfate (Morphine 2 Mg/1 Ml Inj) 2 mg IV Q4H PRN PRN Reason: Pain, Moderate (4-6) Morphine Sulfate (Morphine 4 Mg/1 Ml Inj) 4 mg IV Q4H PRN PRN Reason: Pain , Severe (7-10) Nitroglycerin (Nitroglycerin 0.4 Mg Tab Subl) 0.4 mg SL Q5M PRN PRN Reason: Chest Pain Ondansetron HCl (Ondansetron 4 Mg/2 Ml Inj) 4 mg IV Q8H PRN PRN Reason: Nausea And Vomiting Sodium Chloride (Sodium Chloride 0.9% 10 Ml Flush Syringe) 10 ml IV BID [facility] Last Admin: 04/11/22 09:16 Dose: 10 ml Sodium Chloride (Sodium Chloride 0.9% 10 Ml Flush Syringe) 10 ml IV PRN PRN PRN Reason: LINE FLUSH Tramadol HCl (Tramadol 50 Mg Tab) 50 mg PO Q6H PRN PRN Reason: Pain, Moderate (4-6) Exam - Vital Signs Vital signs: Vital Signs Pulse Ox 89 04/11/22 03:11 - Physical Exam Narrative exam: General appearance: Present: no acute distress, well-nourished - EENT Eyes: Present: PERRL ENT: hearing intact, clear oral mucosa - Neck Neck: Present: supple, normal ROM - Respiratory Respiratory effort: normal Respiratory: bilateral: diminished - Cardiovascular Heart Sounds: Present: S1 & S2. Absent: rub, click - Extremities Extremities: pulses symmetrical, No edema Peripheral Pulses: within normal limits - Abdominal General gastrointestinal: Present: soft, non-tender, non-distended, normal bowel sounds Male genitourinary: Present: normal - Integumentary Integumentary: Present: clear, warm, dry - Musculoskeletal Musculoskeletal: gait normal, strength equal bilaterally - Psychiatric Psychiatric: other (Patient is lethargic) - Neurologic Neurologic: CNII-XII intact, moves all extremities, other (Patient is altered mental status) Results - Lab Results 04/11/22 06:30 04/11/22 06:30 Most recent lab results Calcium 10.7 mg/dL (8.4-10.2) H 04/11/22 06:30 Phosphorus 5.10 mg/dL (2.5-4.5) H 04/11/22 04:31 Magnesium 3.80 mg/dL (1.7-2.3) H 04/11/22 06:30 Assessment and Plan Impression: * ROBERT * HONKS * Hyperglycemia--uncontrolled * hypokalemia * HTN * volume depletion Plan: * management of HONKS per primary team * aggressive volume resuscitation * strict i/os and daily lytes * k noted, replete prn, follow up mag levels * cr is better, continue hydration * follow up renal us * ua noted * robert likely due to uncontrolled DM, as underlying CKD likely * no indication for [employer] at this time <HARRY GORMAN - Last Filed: 04/11/22 10:03> Medications and Allergies Active Meds: Active Medications Acetaminophen (Acetaminophen 325 Mg Tab) 650 mg PO Q4H PRN PRN Reason: Pain MILD(1-3)/Fever >100.5/TORRES Albuterol (Albuterol 2.5 Mg/3 Ml Nebu) 2.5 mg IH Q3HRT PRN PRN Reason: Shortness Of Breath Albuterol/Ipratropium (Ipratropium/Albuterol Sulfate 3 Ml Ampul.Neb) 1 ampul IH Q6HRT [facility] Last Admin: 04/11/22 07:23 Dose: Not Given Aspirin (Aspirin Ec 325 Mg Tab) 325 mg PO QDAY [facility] Atorvastatin Calcium (Atorvastatin 40 Mg Tab) 40 mg PO QHS [facility] Dextrose (Dextrose 50% In Water (25gm) 50 Ml Syringe) 0 ml IV Q30MIN PRN; Protocol PRN Reason: Hypoglycemia Famotidine (Famotidine 20 Mg/2 Ml Inj) 10 mg IV BID [facility] Last Admin: 04/11/22 09:20 Dose: 10 mg Heparin Sodium (Porcine) (Heparin 5,000 Unit/1 Ml Vial) 5,000 unit SUB-Q Q12HR [facility] Last Admin: 04/11/22 09:20 Dose: 5,000 unit Insulin Human Regular 100 (units/ Sodium Chloride) 100 mls @ 10 mls/hr IV TITR [facility]; Protocol Last Admin: 04/11/22 09:13 Dose: 11 units/hr, 11 mls/hr Sodium Chloride (Nacl 0.45% 1000 Ml) 1,000 mls @ 150 mls/hr IV DIRECT [facility] Last Admin: 04/11/22 09:21 Dose: 150 mls/hr Potassium Chloride/Dextrose/Sod Cl (D5w/0.45% Nacl/Kcl 20 Meq) 20 meq in 1,000 mls @ 125 mls/hr IV DIRECT [facility] Dexmedetomidine HCl 200 mcg/ (Sodium Chloride) 50 mls @ 7.258 mls/hr IV TITRATE [facility]; Protocol Last Admin: 04/11/22 09:51 Dose: 0.2 mcg/kg/hr, 7.258 mls/hr Ceftriaxone Sodium (Rocephin/Ns 1 Gm/50 Ml) 1 gm in 50 mls @ 100 mls/hr IV Q24H [facility]; Protocol Lorazepam (Lorazepam 2 Mg/Ml Vial) 2 mg IV Q4H PRN PRN Reason: Agitation Last Admin: 04/11/22 08:31 Dose: 2 mg Morphine Sulfate (Morphine 2 Mg/1 Ml Inj) 2 mg IV Q4H PRN PRN Reason: Pain, Moderate (4-6) Morphine Sulfate (Morphine 4 Mg/1 Ml Inj) 4 mg IV Q4H PRN PRN Reason: Pain , Severe (7-10) Nitroglycerin (Nitroglycerin 0.4 Mg Tab Subl) 0.4 mg SL Q5M PRN PRN Reason: Chest Pain Ondansetron HCl (Ondansetron 4 Mg/2 Ml Inj) 4 mg IV Q8H PRN PRN Reason: Nausea And Vomiting Sodium Chloride (Sodium Chloride 0.9% 10 Ml Flush Syringe) 10 ml IV BID [facility] Last Admin: 04/11/22 09:16 Dose: 10 ml Sodium Chloride (Sodium Chloride 0.9% 10 Ml Flush Syringe) 10 ml IV PRN PRN PRN Reason: LINE FLUSH Tramadol HCl (Tramadol 50 Mg Tab) 50 mg PO Q6H PRN PRN Reason: Pain, Moderate (4-6) Exam - Vital Signs Vital signs: Vital Signs Pulse Ox 89 04/11/22 03:11 Results - Lab Results 04/11/22 06:30 04/11/22 06:30 Most recent lab results Calcium 10.7 mg/dL (8.4-10.2) H 04/11/22 06:30 Phosphorus 1.50 mg/dL (2.5-4.5) L D 04/11/22 06:30 Magnesium 3.80 mg/dL (1.7-2.3) H 04/11/22 06:30 Assessment and Plan - Patient Problems (1) Leukocytosis (leucocytosis) Current Visit: Yes Status: Acute
[2022-04-11] MEDS: ASPIRIN EC 325 MG TAB PO SCH (10:09)
[2022-04-11 10:24] LABS: Anisocytosis 1+; Basophils % (Manual) 0 % (0.0-1.8); Eosinophils % (Manual) 0 % (0.0-4.3); Platelet Estimate Consistent w Auto; Total Cells Counted 100; Toxic Granulation 1+
[2022-04-11] MEDS ORDERED: cefTRIAXone/NS 1 GM/50 ML 1 GM/50 ML BAG IV SCH (11:00)
[2022-04-11] MEDS ORDERED: HALOPERIDOL LACTATE 5 MG/1 ML INJ IV PRN (11:25)
--- NOTE | 2022-04-11 11:34 | Consultation ---
History of Present Illness - Reason for Consult Consult date: 04/11/22 Elevated bLood sugar - History of Present Illness 52 y/o male admitted with DKA, not able to provide history secondary to altered mental status. Past History Past Medical History: diabetes, hypertension Past Surgical History: No surgical history Social history: no significant social history (Marijuana abuse), other Family history: hypertension Medications and Allergies Allergies Allergy/AdvReac Type Severity Reaction Status Date / Time No Known Allergies Allergy Unverified 04/11/22 03:43 Active Meds: Active Medications Acetaminophen (Acetaminophen 325 Mg Tab) 650 mg PO Q4H PRN PRN Reason: Pain MILD(1-3)/Fever >100.5/TORRES Albuterol (Albuterol 2.5 Mg/3 Ml Nebu) 2.5 mg IH Q3HRT PRN PRN Reason: Shortness Of Breath Aspirin (Aspirin Ec 325 Mg Tab) 325 mg PO QDAY [facility] Last Admin: 04/11/22 10:09 Dose: Not Given Atorvastatin Calcium (Atorvastatin 40 Mg Tab) 40 mg PO QHS [facility] Dextrose (Dextrose 50% In Water (25gm) 50 Ml Syringe) 0 ml IV Q30MIN PRN; Protocol PRN Reason: Hypoglycemia Famotidine (Famotidine 20 Mg/2 Ml Inj) 10 mg IV BID [facility] Last Admin: 04/11/22 09:20 Dose: 10 mg Haloperidol Lactate (Haloperidol Lactate 5 Mg/1 Ml Inj) 5 mg IV Q6H PRN PRN Reason: Agitation Heparin Sodium (Porcine) (Heparin 5,000 Unit/1 Ml Vial) 5,000 unit SUB-Q Q12HR [facility] Last Admin: 04/11/22 09:20 Dose: 5,000 unit Insulin Human Regular 100 (units/ Sodium Chloride) 100 mls @ 10 mls/hr IV TITR [facility]; Protocol Last Titration: 04/11/22 11:20 Dose: 22 units/hr, 22 mls/hr Sodium Chloride (Nacl 0.45% 1000 Ml) 1,000 mls @ 150 mls/hr IV DIRECT [facility] Last Admin: 04/11/22 09:21 Dose: 150 mls/hr Potassium Chloride/Dextrose/Sod Cl (D5w/0.45% Nacl/Kcl 20 Meq) 20 meq in 1,000 mls @ 125 mls/hr IV DIRECT [facility] Dexmedetomidine HCl 200 mcg/ (Sodium Chloride) 50 mls @ 7.258 mls/hr IV TITRATE [facility]; Protocol Last Admin: 04/11/22 11:26 Dose: 0.5 mcg/kg/hr, 18.144 mls/hr Ceftriaxone Sodium (Rocephin/Ns 1 Gm/50 Ml) 1 gm in 50 mls @ 100 mls/hr IV Q24H [facility]; Protocol Last Admin: 04/11/22 11:23 Dose: 100 mls/hr Lorazepam (Lorazepam 2 Mg/Ml Vial) 2 mg IV Q4H PRN PRN Reason: Agitation Last Admin: 04/11/22 08:31 Dose: 2 mg Morphine Sulfate (Morphine 2 Mg/1 Ml Inj) 2 mg IV Q4H PRN PRN Reason: Pain, Moderate (4-6) Morphine Sulfate (Morphine 4 Mg/1 Ml Inj) 4 mg IV Q4H PRN PRN Reason: Pain , Severe (7-10) Nitroglycerin (Nitroglycerin 0.4 Mg Tab Subl) 0.4 mg SL Q5M PRN PRN Reason: Chest Pain Ondansetron HCl (Ondansetron 4 Mg/2 Ml Inj) 4 mg IV Q8H PRN PRN Reason: Nausea And Vomiting Sodium Chloride (Sodium Chloride 0.9% 10 Ml Flush Syringe) 10 ml IV BID [facility] Last Admin: 04/11/22 09:16 Dose: 10 ml Sodium Chloride (Sodium Chloride 0.9% 10 Ml Flush Syringe) 10 ml IV PRN PRN PRN Reason: LINE FLUSH Tramadol HCl (Tramadol 50 Mg Tab) 50 mg PO Q6H PRN PRN Reason: Pain, Moderate (4-6) Review of Systems All systems: negative Exam - Constitutional Vitals: Temp Pulse Resp BP Pulse Ox 99.6 F 104 H 10 L 119/73 98 04/11/22 09:13 04/11/22 10:00 04/11/22 07:20 04/11/22 10:48 04/11/22 10:48 General appearance: Present: obese - Neck Neck: Present: supple - Respiratory Respiratory effort: normal Respiratory: bilateral: diminished - Cardiovascular Rhythm: regular Heart Sounds: Present: S1 & S2 - Extremities Extremities: no ischemia, pulses intact - Abdominal General gastrointestinal: Present: soft, non-tender, normal bowel sounds Male genitourinary: Present: deferred - Rectal Rectal Exam: deferred Results - Labs CBC & Chem 7: 04/12/22 03:56 04/12/22 03:56 Labs: Abnormal lab results 04/11/22 04/11/22 04/11/22 Range/Units 02:45 02:45 02:45 WBC 19.1 H (4.5-11.0) K/mm3 RBC 5.73 H (3.65-5.03) M/mm3 Hgb (11.8-15.2) gm/dl Hct 48.2 H (35.5-45.6) % MCV (84-94) fl MCH 26 L (28-32) pg MCHC 31 L (32-34) % Lymph % (Auto) 8.2 L (13.4-35.0) % [place] # (Auto) 0.9 H (0.0-0.8) K/mm3 Seg Neutrophils % 86.5 H (40.0-70.0) % Seg Neuts % (Manual) (40.0-70.0) % Lymphocytes % (Manual) (13.4-35.0) % Seg Neutrophils # 16.5 H (1.8-7.7) K/mm3 Seg Neutrophils # Man (1.8-7.7) K/mm3 Monocytes # (Manual) (0.0-0.8) K/mm3 APTT 21.0 L (24.2-36.6) Sec. Sodium (137-145) mmol/L Potassium (3.6-5.0) mmol/L Chloride 90.3 L (98-107) mmol/L Carbon Dioxide (22-30) mmol/L BUN 53 H (9-20) mg/dL Creatinine 3.1 H (0.8-1.3) mg/dL Glucose 1147 H* (75-100) mg/dL POC Glucose (70-105) mg/dL Calcium (8.4-10.2) mg/dL Phosphorus (2.5-4.5) mg/dL Magnesium (1.7-2.3) mg/dL Total Creatine Kinase 822 H (55-170) units/L CK-MB (CK-2) 12.7 H (0.0-4.0) ng/mL Troponin T 0.100 H (0.00-0.029) ng/mL Triglycerides 527 H (2-149) mg/dL HDL Cholesterol 27 L (40-59) mg/dL 04/11/22 04/11/22 04/11/22 Range/Units 02:48 04:31 04:31 WBC (4.5-11.0) K/mm3 RBC (3.65-5.03) M/mm3 Hgb (11.8-15.2) gm/dl Hct (35.5-45.6) % MCV (84-94) fl MCH (28-32) pg MCHC (32-34) % Lymph % (Auto) (13.4-35.0) % [place] # (Auto) (0.0-0.8) K/mm3 Seg Neutrophils % (40.0-70.0) % Seg Neuts % (Manual) (40.0-70.0) % Lymphocytes % (Manual) (13.4-35.0) % Seg Neutrophils # (1.8-7.7) K/mm3 Seg Neutrophils # Man (1.8-7.7) K/mm3 Monocytes # (Manual) (0.0-0.8) K/mm3 APTT (24.2-36.6) Sec. Sodium (137-145) mmol/L Potassium (3.6-5.0) mmol/L Chloride 93.0 L (98-107) mmol/L Carbon Dioxide 20 L (22-30) mmol/L BUN 54 H (9-20) mg/dL Creatinine 2.8 H (0.8-1.3) mg/dL Glucose 1084 H* (75-100) mg/dL POC Glucose > 600 H (70-105) mg/dL Calcium 10.3 H (8.4-10.2) mg/dL Phosphorus 5.10 H (2.5-4.5) mg/dL Magnesium 3.50 H (1.7-2.3) mg/dL Total Creatine Kinase (55-170) units/L CK-MB (CK-2) (0.0-4.0) ng/mL Troponin T (0.00-0.029) ng/mL Triglycerides (2-149) mg/dL HDL Cholesterol (40-59) mg/dL 04/11/22 04/11/22 04/11/22 Range/Units 06:30 06:30 07:17 WBC 24.9 H (4.5-11.0) K/mm3 RBC 5.96 H (3.65-5.03) M/mm3 Hgb 15.3 H (11.8-15.2) gm/dl Hct 48.9 H (35.5-45.6) % MCV 82 L (84-94) fl MCH 26 L (28-32) pg MCHC 31 L (32-34) % Lymph % (Auto) (13.4-35.0) % [place] # (Auto) (0.0-0.8) K/mm3 Seg Neutrophils % (40.0-70.0) % Seg Neuts % (Manual) 90.0 H (40.0-70.0) % Lymphocytes % (Manual) 6.0 L (13.4-35.0) % Seg Neutrophils # (1.8-7.7) K/mm3 Seg Neutrophils # Man 22.4 H (1.8-7.7) K/mm3 Monocytes # (Manual) 1.0 H (0.0-0.8) K/mm3 APTT (24.2-36.6) Sec. Sodium 147 H (137-145) mmol/L Potassium 3.0 L (3.6-5.0) mmol/L Chloride (98-107) mmol/L Carbon Dioxide (22-30) mmol/L BUN 54 H (9-20) mg/dL Creatinine 2.7 H (0.8-1.3) mg/dL Glucose 819 H* (75-100) mg/dL POC Glucose > 600 H (70-105) mg/dL Calcium 10.7 H (8.4-10.2) mg/dL Phosphorus 1.50 L D (2.5-4.5) mg/dL Magnesium 3.80 H (1.7-2.3) mg/dL Total Creatine Kinase (55-170) units/L CK-MB (CK-2) (0.0-4.0) ng/mL Troponin T (0.00-0.029) ng/mL Triglycerides (2-149) mg/dL HDL Cholesterol (40-59) mg/dL 04/11/22 Range/Units 08:24 WBC (4.5-11.0) K/mm3 RBC (3.65-5.03) M/mm3 Hgb (11.8-15.2) gm/dl Hct (35.5-45.6) % MCV (84-94) fl MCH (28-32) pg MCHC (32-34) % Lymph % (Auto) (13.4-35.0) % [place] # (Auto) (0.0-0.8) K/mm3 Seg Neutrophils % (40.0-70.0) % Seg Neuts % (Manual) (40.0-70.0) % Lymphocytes % (Manual) (13.4-35.0) % Seg Neutrophils # (1.8-7.7) K/mm3 Seg Neutrophils # Man (1.8-7.7) K/mm3 Monocytes # (Manual) (0.0-0.8) K/mm3 APTT (24.2-36.6) Sec. Sodium (137-145) mmol/L Potassium (3.6-5.0) mmol/L Chloride (98-107) mmol/L Carbon Dioxide (22-30) mmol/L BUN (9-20) mg/dL Creatinine (0.8-1.3) mg/dL Glucose (75-100) mg/dL POC Glucose > 600 H (70-105) mg/dL Calcium (8.4-10.2) mg/dL Phosphorus (2.5-4.5) mg/dL Magnesium (1.7-2.3) mg/dL Total Creatine Kinase (55-170) units/L CK-MB (CK-2) (0.0-4.0) ng/mL Troponin T (0.00-0.029) ng/mL Triglycerides (2-149) mg/dL HDL Cholesterol (40-59) mg/dL - Imaging and Cardiology CT Scan - head: report reviewed Assessment and Plan 52 y/o obese male, admitted with elevated blood sugar, acute renal failure 1. IVF per Renal 2. Started on insulin drip but likely just need volume 3. Check A1c 4. Will order some PRN haldol, if helps can schedule 5. Guarded prognosis CCT 31
--- NOTE | 2022-04-11 13:07 | Consultation ---
History of Present Illness Consult date: 04/11/22 Requesting physician: ALEXSANDER DUFF Consult reason: elevated troponin History of present illness: Patient is 52-year-old male with past medical history of hypertension and diabetes who presented to the ED for altered mental status and headache. History is taken from chart due to patient altered mental status at time of interview. Per documentation patient reportedly lives in his car at a [place] station. Patient's friend went to check on him and found patient with decreased responsiveness and complaint of syncopal episodes. Patient transported to the ED for further evaluation. In the ED patient was found to have a glucose of 1147, elevated creatinine, anion gap of 31, elevated troponins and leukocytosis. Patient is previously unknown to our practice. Cardiology is consulted for elevated troponins. Past History Past Medical History: diabetes, hypertension Past Surgical History: No surgical history Social history: no significant social history (Marijuana abuse), other Family history: hypertension Medications and Allergies Allergies Allergy/AdvReac Type Severity Reaction Status Date / Time No Known Allergies Allergy Unverified 04/11/22 03:43 Active Meds: Active Medications Acetaminophen (Acetaminophen 325 Mg Tab) 650 mg PO Q4H PRN PRN Reason: Pain MILD(1-3)/Fever >100.5/TORRES Albuterol (Albuterol 2.5 Mg/3 Ml Nebu) 2.5 mg IH Q3HRT PRN PRN Reason: Shortness Of Breath Aspirin (Aspirin Ec 325 Mg Tab) 325 mg PO QDAY [facility] Last Admin: 04/11/22 10:09 Dose: Not Given Atorvastatin Calcium (Atorvastatin 40 Mg Tab) 40 mg PO QHS [facility] Dextrose (Dextrose 50% In Water (25gm) 50 Ml Syringe) 0 ml IV Q30MIN PRN; Protocol PRN Reason: Hypoglycemia Famotidine (Famotidine 20 Mg/2 Ml Inj) 10 mg IV BID [facility] Last Admin: 04/11/22 09:20 Dose: 10 mg Haloperidol Lactate (Haloperidol Lactate 5 Mg/1 Ml Inj) 5 mg IV Q6H PRN PRN Reason: Agitation Last Admin: 04/11/22 11:43 Dose: 5 mg Heparin Sodium (Porcine) (Heparin 5,000 Unit/1 Ml Vial) 5,000 unit SUB-Q Q12HR [facility] Last Admin: 04/11/22 09:20 Dose: 5,000 unit Insulin Human Regular 100 (units/ Sodium Chloride) 100 mls @ 10 mls/hr IV TITR [facility]; Protocol Last Admin: 04/11/22 12:28 Dose: 32 units/hr, 32 mls/hr Sodium Chloride (Nacl 0.45% 1000 Ml) 1,000 mls @ 150 mls/hr IV DIRECT [facility] Last Admin: 04/11/22 09:21 Dose: 150 mls/hr Potassium Chloride/Dextrose/Sod Cl (D5w/0.45% Nacl/Kcl 20 Meq) 20 meq in 1,000 mls @ 125 mls/hr IV DIRECT [facility] Dexmedetomidine HCl 200 mcg/ (Sodium Chloride) 50 mls @ 7.258 mls/hr IV TITRATE [facility]; Protocol Last Titration: 04/11/22 12:30 Dose: 0.7 mcg/kg/hr, 25.401 mls/hr Ceftriaxone Sodium (Rocephin/Ns 1 Gm/50 Ml) 1 gm in 50 mls @ 100 mls/hr IV Q24H [facility]; Protocol Last Admin: 04/11/22 11:23 Dose: 100 mls/hr Lorazepam (Lorazepam 2 Mg/Ml Vial) 2 mg IV Q4H PRN PRN Reason: Agitation Last Admin: 04/11/22 12:28 Dose: 2 mg Morphine Sulfate (Morphine 2 Mg/1 Ml Inj) 2 mg IV Q4H PRN PRN Reason: Pain, Moderate (4-6) Morphine Sulfate (Morphine 4 Mg/1 Ml Inj) 4 mg IV Q4H PRN PRN Reason: Pain , Severe (7-10) Nitroglycerin (Nitroglycerin 0.4 Mg Tab Subl) 0.4 mg SL Q5M PRN PRN Reason: Chest Pain Ondansetron HCl (Ondansetron 4 Mg/2 Ml Inj) 4 mg IV Q8H PRN PRN Reason: Nausea And Vomiting Sodium Chloride (Sodium Chloride 0.9% 10 Ml Flush Syringe) 10 ml IV BID [facility] Last Admin: 04/11/22 09:16 Dose: 10 ml Sodium Chloride (Sodium Chloride 0.9% 10 Ml Flush Syringe) 10 ml IV PRN PRN PRN Reason: LINE FLUSH Tramadol HCl (Tramadol 50 Mg Tab) 50 mg PO Q6H PRN PRN Reason: Pain, Moderate (4-6) Review of Systems ROS unobtainable: due to mental status Physical Examination Vital Signs Pulse Ox 89 04/11/22 03:11 General appearance: other (Lethargic) HEENT: Positive: Normocephaly Neck: Positive: trachea midline Cardiac: Positive: Reg Rate and Rhythm Lungs: Positive: Normal Breath Sounds Neuro: Positive: Other (Unable to assess due to mental status) Abdomen: Positive: Soft Skin: Negative: Rash, Suspicious Lesions, Ulceration Extremities: Present: upper extr. pulses. Absent: edema Results 04/11/22 06:30 04/11/22 06:30 Cardiac Enzymes 04/11/22 Range/Units 02:45 CK-MB (CK-2) 12.7 H (0.0-4.0) ng/mL Coagulation 04/11/22 Range/Units 02:45 PT 13.4 (12.2-14.9) Sec. INR 0.92 (0.87-1.13) APTT 21.0 L (24.2-36.6) Sec. Lipids 04/11/22 Range/Units 02:45 Triglycerides 527 H (2-149) mg/dL Cholesterol 132 (50-199) mg/dL HDL Cholesterol 27 L (40-59) mg/dL Cholesterol/HDL Ratio 4.88 % CBC 04/11/22 04/11/22 Range/Units 02:45 06:30 WBC 19.1 H 24.9 H (4.5-11.0) K/mm3 RBC 5.73 H 5.96 H (3.65-5.03) M/mm3 Hgb 15.1 15.3 H (11.8-15.2) gm/dl Hct 48.2 H 48.9 H (35.5-45.6) % Plt Count 240 248 (140-440) K/mm3 Lymph # (Auto) 1.6 (1.2-5.4) K/mm3 [place] # (Auto) 0.9 H (0.0-0.8) K/mm3 Eos # (Auto) 0.0 (0.0-0.4) K/mm3 Baso # (Auto) 0.1 (0.0-0.1) K/mm3 Comprehensive Metabolic Panel 04/11/22 04/11/22 04/11/22 Range/Units 02:45 04:31 06:30 Sodium 141 141 147 H (137-145) mmol/L Potassium 3.6 3.6 3.0 L (3.6-5.0) mmol/L Chloride 90.3 L 93.0 L 102.6 (98-107) mmol/L Carbon Dioxide 23 20 L 23 (22-30) mmol/L BUN 53 H 54 H 54 H (9-20) mg/dL Creatinine 3.1 H 2.8 H 2.7 H (0.8-1.3) mg/dL Glucose 1147 H* 1084 H* 819 H* (75-100) mg/dL Calcium 10.2 10.3 H 10.7 H (8.4-10.2) mg/dL - Imaging and Cardiology Echo: pending EKG interpretations - Telemetry EKG Rhythm: Sinus Tachycardia - EKG Sinus rhythms and dysrhythmias: sinus tachycardia Chamber hypertrophy or enlargement: left ventricular hypertro Assessment and Plan Patient is 52-year-old male with past medical history of hypertension and diabetes who presented to the ED for altered mental status and headache Altered mental status Diabetic hyperosmolar nonketotic state NSTEMI suspect type II Leukocytosis ROBERT-nephrology following Hypokalemia Hypomagnesemia Diabetes Hypertension Plan: EKG shows sinus rhythm with LVH and secondary repolarization abnormality. No acute ischemic changes. Troponin noted to be elevated. Repeat cardiac enzymes pending Suspect troponin elevation related to ROBERT, DKA, leukocytosis. Suspect NSTEMI type II Patient currently on aspirin and atorvastatin. Will initiate metoprolol 12.5 mg p.o. twice daily Echo pending No CARA or ARB due to renal function and patient has soft BP Patient seen in conjunction with who agrees this plan of care - Patient Problems (1) Altered mental status Current Visit: No Status: Acute (2) Diabetic hyperosmolar non-ketotic state Current Visit: No Status: Acute (3) Elevated troponin Current Visit: No Status: Acute (4) Hypertension Current Visit: No Status: Acute (5) Acute kidney injury superimposed on CKD Current Visit: No Status: Acute (6) Leukocytosis (leucocytosis) Current Visit: Yes Status: Acute
[2022-04-11] MEDS ORDERED: flumazeniL 0.5 MG/5 ML INJ IV STA (13:35)
[2022-04-11] MEDS: METOPROLOL TARTRATE 25 MG TAB PO SCH ×2 (13:39→21:50)
--- NOTE | 2022-04-11 13:59 | Event Note ---
<HARRY GORMAN - Last Filed: 04/11/22 14:00> Date: 04/11/22 Called by patient nurse to the bedside-patient restless and agitated-on bilat eral arm mitten. Pt was given ativan 2mg at 12:28 pm and he is on precedex for sedation. At 1300pm-pt blood pressure dropped 67/49 with map of 41. Patient assessed-he has shallow breathing and not responsive. Ramazicon 0.2mg given IV. NS bolus started. Patient condition improved. breathing stable and regular. Blood pressure improved 81/47 and 95/64 with map of 71. <ABNER CUNNINGHAM - Last Filed: 04/11/22 19:02> 30 min cct
[2022-04-11 14:28] LABS: Calcium 11.1 mg/dL (8.4-10.2)
[2022-04-11] MEDS ORDERED: SODIUM CHLORIDE 0.45% IV SCH (14:45)
[2022-04-11] MEDS ORDERED: POTASSIUM CHLORIDE IV SCH (14:45)
[2022-04-11] MEDS: POTASSIUM CHLORIDE 10 MEQ 10 MEQ/100 ML BAG IV SCH ×8 (14:48→23:01)
[2022-04-11] MEDS ORDERED: POTASSIUM PHOSPHATE 30 MMOL in SODIUM CHLORIDE 0.9% 500 ML 500 ML IV ONE (15:14)
--- NOTE | 2022-04-11 15:47 | XRay Report ---
CHEST 1 VIEW INDICATION: elevated WBC and temp. COMPARISON: None FINDINGS: SUPPORT DEVICES: None. HEART: Within normal limits. LUNGS/PLEURA: No acute air space or interstitial disease. Calcified right suprahilar lymph node. ADDITIONAL FINDINGS: None. IMPRESSION: 1. No acute findings. Signer Name: Sky Cutler MD Signed: 04/11/2022 3:43 PM Workstation Name: [id number]
[2022-04-11] MEDS ORDERED: NACL 0.45%/KCL 20 MEQ 20 MEQ/1,000 ML BAG IV SCH (17:00)
[2022-04-11] MEDS: D5W/0.45% NACL/KCL 20 MEQ 20 MEQ/1,000 ML BAG IV SCH (17:15)
--- NOTE | 2022-04-11 18:22 | Event Note ---
Date: 04/11/22 Code called-patient has about 30 seconds of apnea-per pt nurse. patient unable to protect his airway. Unable to feel pulse-compression started. An esthesiologists called paged-patient is intubated-started on Trach/Vent. Family member called-at [phone] alisonance-notified her about patient present status.
[2022-04-11] MEDS ORDERED: MINERAL OIL/PETROLATUM, WHITE OPHTH OINT 3.5 GM OU PRN (18:25)
[2022-04-11] MEDS ORDERED: LIP THERAPY VASELINE TP PRN (18:25)
--- NOTE | 2022-04-11 18:42 | XRay Report ---
CHEST 1 VIEW 6:10 PM INDICATION / CLINICAL INFORMATION: new intubation. COMPARISON: 5:00 PM same day FINDINGS: SUPPORT DEVICES: New ET tube has tip at thoracic inlet 9.7 cm above gris and could be advanced furt her distally. HEART / MEDIASTINUM: No significant abnormality. LUNGS / PLEURA: No significant pulmonary or pleural abnormality. No pneumothorax. ADDITIONAL FINDINGS: No significant additional findings. IMPRESSION: 1. No acute findings. Signer Name: Krishna Davis MD Signed: 04/11/2022 6:37 PM Workstation Name: [id number]
[2022-04-11 18:45] LABS: ABG Base Excess 1.3 mmol/L (-2.0-3.0); ABG HCO3 25.8 mmol/L (20.0-26.0); ABG Methemoglobin 0.5 % (0.0-1.5); ABG Oxygen Saturation 98.8 % (95.0-99.0); ABG PCO2 40.8 mm Hg; ABG PH 7.419 pH Units (7.350-7.450); ABG PO2 141.9 mm Hg (80.0-90.0)
--- NOTE | 2022-04-11 18:46 | Event Note ---
Date: 04/11/22 CODE BLUE ACLS protocol initiated Epinephrine given Because of recurrent apneic spells patient was intubated Intubation done by Dr. Horner
[2022-04-11 18:47] LABS: Calcium 10.4 mg/dL (8.4-10.2)
[2022-04-11] MEDS ORDERED: fentaNYL DRIP Premix 2,000 MCG/100 ML BAG IV SCH (19:00)
[2022-04-11] MEDS ORDERED: LACTATED RINGERS 1,000 ML ONE (19:42)
[2022-04-11] MEDS ORDERED: LACTATED RINGERS 2,000 ML IV ONE (19:52)
[2022-04-11] MEDS ORDERED: LACTATED RINGERS 4,000 ML IV ONE (19:52)
--- NOTE | 2022-04-11 20:11 | XRay Report ---
CHEST 1 VIEW 7:42 PM INDICATION / CLINICAL INFORMATION: adjustment of OETT. COMPARISON: 6:10 PM same day FINDINGS: SUPPORT DEVICES: ET tube has been advanced now has tip 5.5 cm above gris in expected position HEART / MEDIASTINUM: No significant abnormality. LUNGS / PLEURA: No significant pulmonary or pleural abnormality. No pneumothorax. ADDITIONAL FINDINGS: No significant additional findings. IMPRESSION: 1. No acute findings. Signer Name: Krishna Davis MD Signed: 04/11/2022 8:07 PM Workstation Name: [id number]
[2022-04-11 21:11] LABS: Calcium 9.9 mg/dL (8.4-10.2)
[2022-04-11 21:15] LABS: Hematocrit 47.4 % (35.5-45.6); Hemoglobin 14.9 gm/dl (11.8-15.2); Mean Corpuscular HGB Conc 31 % (32-34); Mean Corpuscular Volume 81 fl (84-94); Platelet Count 207 K/mm3 (140-440); Red Blood Count 5.84 M/mm3 (3.65-5.03); Red Cell Distribution Width 13.9 % (13.2-15.2)
[2022-04-11] MEDS ORDERED: FAMOTIDINE 20 MG/2 ML INJ IV SCH (22:00)
[2022-04-11] MEDS: SENNOSIDES/DOCUSATE SODIUM 8.6/50 MG TAB FEEDTUBE SCH (22:00)
[2022-04-11 22:41] LABS: Basophils % (Manual) 0 % (0.0-1.8); Eosinophils % (Manual) 0 % (0.0-4.3); Total Cells Counted 100
[2022-04-11 22:42] LABS: Platelet Estimate Consistent w Auto; RBC Morphology Normal
[2022-04-11 23:48] LABS: Calcium 9.4 mg/dL (8.4-10.2)
[2022-04-12] MEDS ORDERED: LACTATED RINGERS 2,000 ML IV ONE (00:02)
[2022-04-12] MEDS ORDERED: VASOPRESSIN 20 UNIT in SODIUM CHLORIDE 0.9% 100 ML IV SCH (00:02)
[2022-04-12] MEDS: D5W/0.45% NACL/KCL 20 MEQ 20 MEQ/1,000 ML BAG IV SCH ×2 (00:43→08:46)
[2022-04-12] MEDS ORDERED: NORepinephrine/NS 8 MG-250 ML 8 MG/250 ML INFUS..BTL IV SCH ×3 (00:51→01:42)
[2022-04-12] MEDS: INSULIN REGULAR, HUMAN 100 UNITS in SODIUM CHLORIDE 0.9% 99 ML IV SCH (03:10)
[2022-04-12 03:44] LABS: ABG Base Excess 3.1 mmol/L (-2.0-3.0); ABG Methemoglobin 0.6 % (0.0-1.5); ABG PCO2 38.4 mm Hg; ABG PH 7.465 pH Units (7.350-7.450); ABG PO2 71.6 mm Hg (80.0-90.0)
[2022-04-12 05:01] LABS: Hematocrit 36.5 % (35.5-45.6); Hemoglobin 11.5 gm/dl (11.8-15.2); Mean Corpuscular HGB Conc 32 % (32-34); Mean Corpuscular Volume 81 fl (84-94); Platelet Count 155 K/mm3 (140-440); Red Blood Count 4.49 M/mm3 (3.65-5.03); Red Cell Distribution Width 14.2 % (13.2-15.2)
[2022-04-12 05:25] LABS: Albumin 3.1 g/dL (3.9-5); Calcium 8.8 mg/dL (8.4-10.2)
[2022-04-12 06:11] LABS: Basophils % (Manual) 0 % (0.0-1.8); Eosinophils % (Manual) 0 % (0.0-4.3); Monocytes % (Manual) 0 % (0.0-7.3); Total Cells Counted 100
[2022-04-12 06:12] LABS: Hypochromasia 1+; Platelet Estimate Consistent w Auto
[2022-04-12] MEDS: POTASSIUM CHLORIDE 10 MEQ 10 MEQ/100 ML BAG IV SCH ×4 (07:13→10:18)
--- NOTE | 2022-04-12 08:02 | Event Note ---
Date: 04/11/22 (Intubation) Code Blue-called to intubate Meds: 18:00 Etomidate 20mg + Sux 100mg Glidescope DVC 8.0 OETT 23cm at incisors +BBS/CO2 VSS
--- NOTE | 2022-04-12 09:15 | XRay Report ---
XR abdomen 1V ap INDICATION: sp DHT. COMPARISON: None available. FINDINGS: The tip of the feeding tube projects over the distal stomach. Signer Name: Manuel Hernandes MD Signed: 04/12/2022 9:11 AM Workstation Name: [id number]
[2022-04-12] MEDS: HEPARIN 5,000 UNIT/1 ML VIAL SUB-Q SCH ×2 (09:35→22:57)
--- NOTE | 2022-04-12 09:58 | Electrocardiograph Report ---
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
--- NOTE | 2022-04-12 10:06 | Electrocardiograph Report ---
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 Electronically Signed On 04-12-2022 10:05:50 EDT by Feliciano Byrd
--- NOTE | 2022-04-12 10:15 | Electrocardiograph Report ---
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
[2022-04-12] MEDS: ASPIRIN EC 325 MG TAB PO SCH (10:17)
[2022-04-12] MEDS: METOPROLOL TARTRATE 25 MG TAB PO SCH (10:17)
[2022-04-12] MEDS: FAMOTIDINE 20 MG/2 ML INJ IV SCH (10:17)
[2022-04-12] MEDS: cefTRIAXone/NS 2 GM/100 ML 2 GM/100 ML BAG IV SCH (10:18)
[2022-04-12] MEDS: SENNOSIDES/DOCUSATE SODIUM 8.6/50 MG TAB FEEDTUBE SCH ×2 (10:27→22:58)
[2022-04-12] MEDS ORDERED: hydrALAZINE 20 MG/1 ML INJ IV SCH ×2 (10:30→11:30)
[2022-04-12] MEDS: METOPROLOL TARTRATE 25 MG TAB FEEDTUBE SCH ×2 (10:32→22:58)
[2022-04-12] MEDS: ASPIRIN 325 MG TAB FEEDTUBE SCH (10:33)
[2022-04-12] MEDS: DEXTROSE 5% IN WATER 1,000 ML IV SCH ×2 (10:33→23:53)
--- NOTE | 2022-04-12 11:53 | Progress Note ---
Assessment and Plan Patient is 52-year-old male with past medical history of hypertension and diabetes who presented to the ED for altered mental status and headache Altered mental status Diabetic hyperosmolar nonketotic state NSTEMI suspect type II Leukocytosis ROBERT-nephrology following Hypokalemia Hypomagnesemia Diabetes Hypertension Echo 04/11/2022-EF 60 to 65%. Moderate concentric LVH. Transmitral Doppler flow pattern suggests impaired LV relaxation. Right ventricle is not well visualized. Left atrium is not well visualized. Right atrium is not well visualized. Technically difficult study Plan: EKG shows sinus rhythm with LVH and secondary repolarization abnormality. No acute ischemic changes. EKG today shows sinus rhythm LVH with secondary repolarization abnormality Suspect troponin elevation related to ROBERT, DKA, leukocytosis. Suspect NSTEMI type II Patient currently on aspirin and atorvastatin. Continue metoprolol 12.5 mg p.o. twice daily Patient extremely hypertensive this a.m. Per conversation with staff patient to be started on Cardene No CARA or ARB due to renal function and patient has soft BP We will see as needed over the weekend Patient seen in conjunction with who agrees this plan of care - Patient Problems (1) Altered mental status Current Visit: No Status: Inactive (2) Diabetic hyperosmolar non-ketotic state Current Visit: No Status: Inactive (3) Elevated troponin Current Visit: No Status: Inactive (4) Hypertension Current Visit: No Status: Acute (5) Acute kidney injury superimposed on CKD Current Visit: No Status: Acute (6) Leukocytosis (leucocytosis) Current Visit: Yes Status: Acute Subjective Date of service: 04/12/22 Principal diagnosis: HHNKS, AMS, NSTEMI type 2, ARF Interval history: Per documentation patient became very hypotensive yesterday. Furthermore later in the day patient was not maintaining airway and had cardiopulmonary arrest. Patient was then intubated next currently patient sinus 90s on monitor Objective Vital Signs Temp Pulse Pulse Resp BP Pulse Ox 04/12/22 11:00 96 H 28 H 225/125 97 04/12/22 10:51 96 H 29 H 222/126 97 04/12/22 10:41 93 H 27 H 215/119 98 04/12/22 10:30 86 21 215/119 98 04/12/22 10:21 89 26 H 211/120 98 04/12/22 10:11 86 26 H 192/122 99 04/12/22 10:00 82 20 192/122 98 04/12/22 09:51 81 24 208/121 98 04/12/22 09:41 78 20 232/140 98 04/12/22 09:30 95 H 24 232/140 99 04/12/22 09:21 95 H 18 225/127 97 04/12/22 09:20 96 H 219/127 98 04/12/22 09:11 94 H 23 202/127 98 04/12/22 09:00 89 26 H 202/127 98 04/12/22 08:51 93 H 25 H 226/132 97 04/12/22 08:41 168/91 100 04/12/22 08:30 168/91 99 04/12/22 08:21 86 25 H 158/101 98 04/12/22 08:11 85 24 164/98 98 04/12/22 08:09 81 24 99 04/12/22 08:06 81 04/12/22 08:05 99 F 04/12/22 08:00 81 21 164/98 99 04/12/22 07:51 89 26 H 185/111 100 04/12/22 07:41 83 21 133/97 99 04/12/22 07:30 88 25 H 133/97 99 04/12/22 07:21 83 25 H 147/87 99 04/12/22 07:11 80 18 149/86 99 04/12/22 07:00 76 30 H 149/86 98 04/12/22 06:51 76 32 H 158/81 97 04/12/22 06:41 80 29 H 130/84 98 04/12/22 06:30 73 29 H 130/84 97 04/12/22 06:21 76 29 H 137/80 98 04/12/22 06:11 73 31 H 148/79 96 04/12/22 06:00 71 38 H 148/79 97 04/12/22 05:51 71 31 H 155/88 97 04/12/22 05:41 77 32 H 178/91 96 04/12/22 05:30 80 29 H 178/91 96 04/12/22 05:21 13 112/67 97 04/12/22 05:11 60 21 113/62 98 04/12/22 05:00 60 20 113/62 97 04/12/22 04:51 60 19 103/61 97 04/12/22 04:41 60 20 97 04/12/22 04:38 60 20 97 04/12/22 03:35 57 L 3 L 103/56 97 04/12/22 03:30 100.0 F H 04/12/22 03:15 57 L 20 100 04/12/22 01:51 57 L 20 102/58 99 04/12/22 01:41 57 L 20 101/61 99 04/12/22 01:30 57 L 20 101/61 99 04/12/22 01:21 58 L 20 101/61 100 04/12/22 01:11 58 L 20 101/60 100 04/12/22 01:00 59 L 20 101/60 100 04/12/22 00:51 59 L 20 94/58 100 04/12/22 00:41 60 20 92/55 99 04/12/22 00:30 60 20 92/55 99 04/12/22 00:21 60 20 89/55 100 04/12/22 00:11 61 20 92/55 100 04/12/22 00:00 61 20 92/55 100 04/11/22 23:51 60 20 87/54 99 04/11/22 23:49 61 20 87/54 99 04/11/22 23:41 60 20 94/55 99 04/11/22 23:35 64 2 L 100/72 99 04/11/22 23:30 101.0 F H 61 20 94/55 98 04/11/22 23:21 60 20 102/53 99 04/11/22 23:11 61 20 89/56 100 04/11/22 23:00 62 22 89/56 99 04/11/22 22:51 62 22 93/57 100 04/11/22 22:41 62 21 92/58 99 04/11/22 22:30 63 21 92/58 99 04/11/22 22:21 64 21 100/72 99 04/11/22 22:11 64 21 118/63 79 L 04/11/22 22:00 65 20 118/63 75 L 04/11/22 21:51 70 20 108/79 80 L 04/11/22 21:50 66 108/79 04/11/22 21:41 69 20 115/70 76 L 04/11/22 21:30 65 20 115/70 84 05/19/22 21:21 67 24 107/65 83 L 04/11/22 21:11 66 24 97/61 81 L 04/11/22 21:00 66 26 H 97/61 04/11/22 20:51 67 29 H 92/56 87 04/11/22 20:41 69 30 H 89/58 04/11/22 20:40 102.2 F H 04/11/22 20:30 67 21 89/58 85 04/11/22 20:21 68 30 H 90/51 04/11/22 20:11 69 31 H 72/51 04/11/22 20:00 71 33 H 72/51 75 L 04/11/22 19:51 74 34 H 75/54 04/11/22 19:45 98 04/11/22 19:41 74 34 H 80/49 99 04/11/22 19:30 73 30 H 80/49 04/11/22 19:21 74 33 H 81/46 79 L 04/11/22 19:15 84 34 H 97 04/11/22 19:13 77 10 L 83/53 97 04/11/22 19:11 77 30 H 83/53 04/11/22 19:00 77 30 H 83/53 94 04/11/22 18:51 81 31 H 81/58 92 04/11/22 18:41 87 14 88/47 04/11/22 18:31 71 21 175/99 67 L 04/11/22 18:21 96 H 18 175/99 85 04/11/22 18:11 96 H 26 H 175/99 92 04/11/22 18:09 96 H 175/99 93 04/11/22 18:00 68 6 L 167/101 100 04/11/22 17:51 137 H 15 100/67 04/11/22 17:41 20 100/67 75 L 04/11/22 17:31 77 19 100/67 04/11/22 17:21 80 22 104/64 57 L 04/11/22 17:11 70 19 104/64 04/11/22 17:00 71 20 104/64 90 04/11/22 16:51 73 37 H 85/56 92 04/11/22 16:41 69 28 H 85/56 94 04/11/22 16:30 64 16 85/56 93 05//22 16:22 98.1 F 04/11/22 16:21 62 29 H 96/72 94 04/11/22 16:11 65 44 H 96/72 92 04/11/22 16:00 67 23 96/72 87 04/11/22 15:56 61 91 H 18 95 04/11/22 15:51 66 27 H 98/59 98 04/11/22 15:41 88 27 H 98/59 96 04/11/22 15:30 31 H 98/59 94 04/11/22 15:21 71 37 H 83/54 98 04/11/22 15:11 58 L 21 89/56 99 04/11/22 15:00 60 18 89/56 99 04/11/22 14:51 57 L 19 79/52 98 04/11/22 14:41 56 L 27 H 84/55 93 04/11/22 14:30 53 L 14 84/55 94 04/11/22 14:21 60 17 90/59 88 04/11/22 14:11 58 L 28 H 92/59 98 04/11/22 14:00 58 L 22 92/59 98 04/11/22 13:50 64 29 H 95/64 04/11/22 13:40 59 L 13 77/44 100 04/11/22 13:30 69 15 63/38 86 04/11/22 13:21 68 13 67/29 90 04/11/22 13:11 73 13 67/29 100 04/11/22 13:00 74 22 67/29 04/11/22 12:51 89 21 102/74 100 04/11/22 12:41 80 17 102/74 100 04/11/22 12:31 99 H 20 102/74 88 04/11/22 12:21 102/74 96 04/11/22 12:11 92 H 23 102/74 67 L 04/11/22 12:01 97 H 16 102/74 60 L 04/11/22 11:57 37.9 F L 04/11/22 11:56 86 04/11/22 11:51 89 27 H 102/67 90 - Physical Examination General: No Apparent Distress HEENT: Positive: Normocephaly Neck: Positive: trachea midline Cardiac: Positive: Reg Rate and Rhythm Lungs: Positive: Ventilated Respirations Neuro: Positive: Other (Unable to assess due to mental status) Abdomen: Positive: Soft Skin: Negative: Rash, Suspicious Lesions, Ulceration Extremities: Present: upper extr. pulses. Absent: edema - Labs and Meds Cardiac Enzymes 04/12/22 Range/Units 03:56 AST 53 H (5-40) units/L CBC 04/11/22 04/12/22 Range/Units 20:18 03:56 WBC 24.8 H 17.5 H (4.5-11.0) K/mm3 RBC 5.84 H 4.49 (3.65-5.03) M/mm3 Hgb 14.9 11.5 L D (11.8-15.2) gm/dl Hct 47.4 H 36.5 D (35.5-45.6) % Plt Count 207 155 (140-440) K/mm3 Lymph # (Auto) Oil Processing Technician [place] # (Auto) Oil Processing Technician Eos # (Auto) Oil Processing Technician Baso # (Auto) Oil Processing Technician Comprehensive Metabolic Panel 04/11/22 04/11/22 04/11/22 Range/Units 13:07 17:51 20:18 Sodium 155 H D 160 H 160 H (137-145) mmol/L Potassium 2.5 L* 3.0 L 3.4 L (3.6-5.0) mmol/L Chloride 112.8 H 115.9 H 116.4 H (98-107) mmol/L Carbon Dioxide 23 17 L 21 L (22-30) mmol/L BUN 58 H 57 H 58 H (9-20) mg/dL Creatinine 3.3 H 3.6 H 4.1 H (0.8-1.3) mg/dL Glucose 475 H 154 H 157 H (75-100) mg/dL Calcium 11.1 H 10.4 H 9.9 (8.4-10.2) mg/dL AST (5-40) units/L ALT (7-56) units/L Alkaline Phosphatase (35-129) units/L Total Protein (6.3-8.2) g/dL Albumin (3.9-5) g/dL 04/11/22 04/12/22 Range/Units 23:02 03:56 Sodium 162 H* 160 H (137-145) mmol/L Potassium 3.0 L 2.8 L* (3.6-5.0) mmol/L Chloride 118.3 H 118.6 H (98-107) mmol/L Carbon Dioxide 27 26 (22-30) mmol/L BUN 57 H 56 H (9-20) mg/dL Creatinine 4.2 H 4.5 H (0.8-1.3) mg/dL Glucose 92 126 H (75-100) mg/dL Calcium 9.4 8.8 (8.4-10.2) mg/dL AST 53 H (5-40) units/L ALT 25 (7-56) units/L Alkaline Phosphatase 60 (35-129) units/L Total Protein 5.0 L (6.3-8.2) g/dL Albumin 3.1 L (3.9-5) g/dL - Imaging and Cardiology Echo: report reviewed - Telemetry EKG Rhythm: Sinus Rhythm - EKG Sinus rhythms and dysrhythmias: sinus tachycardia Chamber hypertrophy or enlargement: left ventricular hypertro
[2022-04-12] MEDS ORDERED: FREE WATER PO SCH (12:00)
--- NOTE | 2022-04-12 12:14 | Progress Note ---
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 Absent: rub, click - Extremities Extremities: pulses symmetrical, No edema Peripheral Pulses: within normal limits - Abdominal General gastrointestinal: Present: soft, non-tender, non-distended, normal bowel sounds Male genitourinary: Present: normal - Integumentary Integumentary: Present: clear, warm, dry - Musculoskeletal Musculoskeletal: gait normal, strength equal bilaterally - Psychiatric Psychiatric: other (Patient is lethargic) - Neurologic Neurologic: CNII-XII intact, moves all extremities, other (Patient is altered mental status) - Vital Signs Vital signs: Vital Signs - 12hr 04/12/22 04/12/22 04/12/22 00:21 00:30 00:41 Temperature Pulse Rate 60 60 60 Pulse Rate [ From Monitor] Respiratory 20 20 20 Rate Blood Pressure 89/55 92/55 92/55 O2 Sat by Pulse 100 99 99 Oximetry 04/12/22 04/12/22 04/12/22 00:51 01:00 01:11 Temperature Pulse Rate 59 L 59 L 58 L Pulse Rate [ From Monitor] Respiratory 20 20 20 Rate Blood Pressure 94/58 101/60 101/60 O2 Sat by Pulse 100 100 100 Oximetry 04/12/22 04/12/22 04/12/22 01:21 01:30 01:41 Temperature Pulse Rate 58 L 57 L 57 L Pulse Rate [ From Monitor] Respiratory 20 20 20 Rate Blood Pressure 101/61 101/61 101/61 O2 Sat by Pulse 100 99 99 Oximetry 04/12/22 04/12/22 04/12/22 01:51 03:15 03:30 Temperature 100.0 F H Pulse Rate 57 L 57 L Pulse Rate [ From Monitor] Respiratory 20 20 Rate Blood Pressure 102/58 O2 Sat by Pulse 99 100 Oximetry 04/12/22 04/12/22 04/12/22 03:35 04:38 04:41 Temperature Pulse Rate 57 L 60 60 Pulse Rate [ From Monitor] Respiratory 3 L 20 20 Rate Blood Pressure 103/56 O2 Sat by Pulse 97 97 97 Oximetry 04/12/22 04/12/22 04/12/22 04:51 05:00 05:11 Temperature Pulse Rate 60 60 60 Pulse Rate [ From Monitor] Respiratory 19 20 21 Rate Blood Pressure 103/61 113/62 113/62 O2 Sat by Pulse 97 97 98 Oximetry 04/12/22 04/12/22 04/12/22 05:21 05:30 05:41 Temperature Pulse Rate 80 77 Pulse Rate [ From Monitor] Respiratory 13 29 H 32 H Rate Blood Pressure 112/67 178/91 178/91 O2 Sat by Pulse 97 96 96 Oximetry 04/12/22 04/12/22 04/12/22 05:51 06:00 06:11 Temperature Pulse Rate 71 71 73 Pulse Rate [ From Monitor] Respiratory 31 H 38 H 31 H Rate Blood Pressure 155/88 148/79 148/79 O2 Sat by Pulse 97 97 96 Oximetry 04/12/22 04/12/22 04/12/22 06:21 06:30 06:41 Temperature Pulse Rate 76 73 80 Pulse Rate [ From Monitor] Respiratory 29 H 29 H 29 H Rate Blood Pressure 137/80 130/84 130/84 O2 Sat by Pulse 98 97 98 Oximetry 04/12/22 04/12/22 04/12/22 06:51 07:00 07:11 Temperature Pulse Rate 76 76 80 Pulse Rate [ From Monitor] Respiratory 32 H 30 H 18 Rate Blood Pressure 158/81 149/86 149/86 O2 Sat by Pulse 97 98 99 Oximetry 04/12/22 04/12/22 04/12/22 07:21 07:30 07:41 Temperature Pulse Rate 83 88 83 Pulse Rate [ From Monitor] Respiratory 25 H 25 H 21 Rate Blood Pressure 147/87 133/97 133/97 O2 Sat by Pulse 99 99 99 Oximetry 04/12/22 04/12/22 04/12/22 07:51 08:00 08:05 Temperature 99 F Pulse Rate 89 81 Pulse Rate [ From Monitor] Respiratory 26 H 21 Rate Blood Pressure 185/111 164/98 O2 Sat by Pulse 100 99 Oximetry 04/12/22 04/12/22 04/12/22 08:06 08:09 08:11 Temperature Pulse Rate 81 85 Pulse Rate [ 81 From Monitor] Respiratory 24 24 Rate Blood Pressure 164/98 O2 Sat by Pulse 99 98 Oximetry 04/12/22 04/12/22 04/12/22 08:21 08:30 08:41 Temperature Pulse Rate 86 Pulse Rate [ From Monitor] Respiratory 25 H Rate Blood Pressure 158/101 168/91 168/91 O2 Sat by Pulse 98 99 100 Oximetry 04/12/22 04/12/22 04/12/22 08:51 09:00 09:11 Temperature Pulse Rate 93 H 89 94 H Pulse Rate [ From Monitor] Respiratory 25 H 26 H 23 Rate Blood Pressure 226/132 202/127 202/127 O2 Sat by Pulse 97 98 98 Oximetry 04/12/22 04/12/22 04/12/22 09:20 09:21 09:30 Temperature Pulse Rate 96 H 95 H 95 H Pulse Rate [ From Monitor] Respiratory 18 24 Rate Blood Pressure 219/127 225/127 232/140 O2 Sat by Pulse 98 97 99 Oximetry 04/12/22 04/12/22 04/12/22 09:41 09:51 10:00 Temperature Pulse Rate 78 81 82 Pulse Rate [ From Monitor] Respiratory 20 24 20 Rate Blood Pressure 232/140 208/121 192/122 O2 Sat by Pulse 98 98 98 Oximetry 04/12/22 04/12/22 04/12/22 10:11 10:21 10:30 Temperature Pulse Rate 86 89 86 Pulse Rate [ From Monitor] Respiratory 26 H 26 H 21 Rate Blood Pressure 192/122 211/120 215/119 O2 Sat by Pulse 99 98 98 Oximetry 04/12/22 04/12/22 04/12/22 10:41 10:51 11:00 Temperature Pulse Rate 93 H 96 H 96 H Pulse Rate [ From Monitor] Respiratory 27 H 29 H 28 H Rate Blood Pressure 215/119 222/126 225/125 O2 Sat by Pulse 98 97 97 Oximetry 04/12/22 04/12/22 04/12/22 11:11 11:21 11:30 Temperature Pulse Rate 93 H 89 89 Pulse Rate [ From Monitor] Respiratory 27 H 24 24 Rate Blood Pressure 225/125 200/123 156/95 O2 Sat by Pulse 98 99 99 Oximetry 04/12/22 04/12/22 04/12/22 11:41 11:51 12:00 Temperature Pulse Rate 87 87 86 Pulse Rate [ From Monitor] Respiratory 22 24 24 Rate Blood Pressure 156/95 142/90 130/87 O2 Sat by Pulse 97 99 99 Oximetry 04/12/22 04/12/22 04/12/22 12:02 12:03 12:05 Temperature 100.3 F H Pulse Rate 85 Pulse Rate [ 85 From Monitor] Respiratory 25 H Rate Blood Pressure O2 Sat by Pulse 99 Oximetry - Lab 04/12/22 03:56 04/12/22 03:56 Most recent lab results ABG pH 7.465 pH Units (7.350-7.450) H 04/12/22 03:27 ABG pCO2 38.4 mm Hg 04/12/22 03:27 ABG pO2 71.6 mm Hg (80.0-90.0) L 04/12/22 03:27 ABG HCO3 27.0 mmol/L (20.0-26.0) H 04/12/22 03:27 ABG O2 Saturation 97.0 % (95.0-99.0) 04/12/22 03:27 Calcium 8.8 mg/dL (8.4-10.2) 04/12/22 03:56 Phosphorus 1.50 mg/dL (2.5-4.5) L D 04/11/22 06:30 Magnesium 3.80 mg/dL (1.7-2.3) H 04/11/22 06:30 Medications & Allergies - Medications Allergies/Adverse Reactions: Allergies No Known Allergies Allergy (Unverified 04/11/22 03:43) Active Medications: Generic Name Dose Route Start Last Admin Trade Name Freq PRN Reason Stop Dose Admin Acetaminophen 650 mg 04/11/22 06:00 Acetaminophen 325 Mg Tab PO Q4H PRN Pain MILD(1-3)/Fever >100.5/TORRES Albuterol 2.5 mg 04/11/22 05:30 Albuterol 2.5 Mg/3 Ml Nebu IH Q3HRT PRN Shortness Of Breath Aspirin 325 mg 04/12/22 11:00 04/12/22 10:33 Aspirin 325 Mg Tab FEEDTUBE 325 mg QDAY VERNON Administration Atorvastatin Calcium 40 mg 04/12/22 22:00 Atorvastatin 40 Mg Tab FEEDTUBE QHS VERNON Dextrose 0 ml 04/11/22 06:00 Dextrose 50% In Water (25gm) 50 Ml Syringe IV Q30MIN PRN Hypoglycemia Protocol Famotidine 10 mg 04/12/22 22:00 Famotidine 10 Mg Tab FEEDTUBE BID VERNON Fentanyl 50 mcg 04/11/22 18:25 Fentanyl 100 Mcg/2 Ml Inj IV Q10MIN PRN ANALGESIA Haloperidol Lactate 5 mg 04/11/22 11:25 04/11/22 11:43 Haloperidol Lactate 5 Mg/1 Ml Inj IV 5 mg Q6H PRN Administration Agitation Heparin Sodium (Porcine) 5,000 unit 04/11/22 10:00 04/12/22 09:35 Heparin 5,000 Unit/1 Ml Vial SUB-Q 5,000 unit Q12HR VERNON Administration Hydralazine HCl 10 mg 04/12/22 10:30 04/12/22 10:28 Hydralazine 20 Mg/1 Ml Inj IV 04/12/22 13:30 10 mg ONCE@1030 VERNON Administration Hydralazine HCl 10 mg 04/12/22 11:30 04/12/22 11:22 Hydralazine 20 Mg/1 Ml Inj IV 04/12/22 14:30 10 mg ONCE@1130 VERNON Administration Hydrophilic Ointment 1 applic 04/11/22 18:25 Lip Therapy Vaseline TP Q2HR PRN Dry Lips Insulin Human Regular 100 100 mls @ 10 mls/hr 04/11/22 05:00 04/12/22 11:11 units/ Sodium Chloride IV 8 units/hr TITR VERNON 8 mls/hr Titration Protocol 10 UNITS/HR Dexmedetomidine HCl 200 mcg/ 50 mls @ 7.258 mls/hr 04/11/22 10:00 04/12/22 00:07 Sodium Chloride IV 0 mcg/kg/hr TITRATE VERNON 0 mls/hr Titration Protocol 0.2 MCG/KG/HR Fentanyl Citrate 2,000 mcg in 100 mls @ 7.258 mls/hr 04/11/22 19:00 Fentanyl Drip Premix IV TITR VERNON Protocol 1 MCG/KG/HR Vasopressin 20 unit/ Sodium 101 mls @ 9.09 mls/hr 04/12/22 00:02 Chloride IV TITR VERNON Protocol 0.03 UNITS/MIN NORepinephrine/NS 8 MG-250 ML 8 mg in 250 mls @ 3.75 mls/hr 04/12/22 01:42 Norepinephrine/Ns 8 Mg-250 Ml (Double Conc) IV TITRATE VERNON Protocol 2 MCG/MIN Ceftriaxone Sodium 2 gm in 100 mls @ 200 mls/hr 04/12/22 11:00 04/12/22 10:18 Rocephin/Ns 2 Gm/100 Ml IV 200 mls/hr Q24H VERNON Administration Protocol Dextrose 1,000 mls @ 75 mls/hr 04/12/22 11:00 04/12/22 10:33 D5w IV 75 mls/hr DIRECT VERNON Administration Nicardipine HCl 50 mg/ Sodium 250 mls @ 25 mls/hr 04/12/22 11:00 Chloride IV TITR VERNON Protocol 5 MG/HR Azithromycin 500 mg in 250 mls @ 250 mls/hr 04/12/22 12:00 Zithromax/Ns IV Q24H VERNON Protocol Labetalol HCl 10 mg 04/12/22 09:30 04/12/22 09:33 Labetalol 20 Mg/4 Ml Inj IV 04/12/22 13:00 10 mg ONCE@0930 VERNON Administration Lorazepam 2 mg 04/11/22 08:30 04/11/22 12:28 Lorazepam 2 Mg/Ml Vial IV 2 mg Q4H PRN Administration Agitation Metoprolol Tartrate 12.5 mg 04/12/22 11:00 04/12/22 10:32 Metoprolol Tartrate 25 Mg Tab FEEDTUBE 12.5 mg BID [facility] Administration Morphine Sulfate 2 mg 04/11/22 06:00 Morphine 2 Mg/1 Ml Inj IV Q4H PRN Pain, Moderate (4-6) Morphine Sulfate 4 mg 04/11/22 06:00 Morphine 4 Mg/1 Ml Inj IV Q4H PRN Pain , Severe (7-10) Multi-Ingred Cream/Lotion/Oil/Oint 1 applic 04/11/22 18:25 Mineral Oil/Petrolatum, White Ophth Oint 3.5 Gm OU Q4HR PRN Dry Eye(s) Nitroglycerin 0.4 mg 04/11/22 06:00 Nitroglycerin 0.4 Mg Tab Subl SL Q5M PRN Chest Pain Ondansetron HCl 4 mg 04/11/22 06:00 Ondansetron 4 Mg/2 Ml Inj IV Q8H PRN Nausea And Vomiting Senna/Docusate Sodium 1 tab 04/11/22 22:00 04/12/22 10:27 Sennosides/Docusate Sodium 8.6/50 Mg Tab FEEDTUBE Not Given BID [facility] Sodium Chloride 10 ml 04/11/22 10:00 04/12/22 09:33 Sodium Chloride 0.9% 10 Ml Flush Syringe IV 10 ml BID [facility] Administration Sodium Chloride 10 ml 04/11/22 06:00 Sodium Chloride 0.9% 10 Ml Flush Syringe IV PRN PRN LINE FLUSH
[2022-04-12] MEDS: AZITHROMYCIN/NS 500 MG/250 ML 500 MG/250 ML BAG IV SCH (12:39)
[2022-04-12] MEDS: FREE WATER PO SCH ×3 (12:40→20:52)
--- NOTE | 2022-04-12 12:52 | Progress Note ---
Assessment and Plan 52 y/o obese male, admitted with elevated blood sugar, acute renal failure 04/12/22: Continue IV fluid hydration. Picc team will not place line as patient had fever last night and was cultured. Given his change in mental state, will repeat head CT. CXR is clear, UA was bland. Spoke with renal, they agree with aggressive volume replacement. Awaiting BMP to determine if we are able to feed. Follow up Blood Cx. Guarded to poor prognosis. Will attempt to call sister to update as she is the legal next of kin. 1. IVF per Renal 2. Started on insulin drip but likely just need volume 3. Check A1c 4. Will order some PRN haldol, if helps can schedule 5. Guarded prognosis CCT 31 Subjective Date of service: 04/12/22 Principal diagnosis: HHNKS, AMS, NSTEMI type 2, ARF Interval history: Patient had cardiac arrest for about 8 minutes last night. Intubated by anesthesia. This am, not on sedation. Did not require pressors last night. Urine output is better this morning. Got about 6 liters of fluid last night. Objective Vital Signs - 12hr 04/12/22 04/12/22 04/12/22 00:51 01:00 01:11 Temperature Pulse Rate 59 L 59 L 58 L Pulse Rate [ From Monitor] Respiratory 20 20 20 Rate Blood Pressure 94/58 101/60 101/60 O2 Sat by Pulse 100 100 100 Oximetry 04/12/22 04/12/22 04/12/22 01:21 01:30 01:41 Temperature Pulse Rate 58 L 57 L 57 L Pulse Rate [ From Monitor] Respiratory 20 20 20 Rate Blood Pressure 101/61 101/61 101/61 O2 Sat by Pulse 100 99 99 Oximetry 04/12/22 04/12/22 04/12/22 01:51 03:15 03:30 Temperature 100.0 F H Pulse Rate 57 L 57 L Pulse Rate [ From Monitor] Respiratory 20 20 Rate Blood Pressure 102/58 O2 Sat by Pulse 99 100 Oximetry 04/12/22 04/12/22 04/12/22 03:35 04:38 04:41 Temperature Pulse Rate 57 L 60 60 Pulse Rate [ From Monitor] Respiratory 3 L 20 20 Rate Blood Pressure 103/56 O2 Sat by Pulse 97 97 97 Oximetry 04/12/22 04/12/22 04/12/22 04:51 05:00 05:11 Temperature Pulse Rate 60 60 60 Pulse Rate [ From Monitor] Respiratory 19 20 21 Rate Blood Pressure 103/61 113/62 113/62 O2 Sat by Pulse 97 97 98 Oximetry 04/12/22 04/12/22 04/12/22 05:21 05:30 05:41 Temperature Pulse Rate 80 77 Pulse Rate [ From Monitor] Respiratory 13 29 H 32 H Rate Blood Pressure 112/67 178/91 178/91 O2 Sat by Pulse 97 96 96 Oximetry 04/12/22 04/12/22 04/12/22 05:51 06:00 06:11 Temperature Pulse Rate 71 71 73 Pulse Rate [ From Monitor] Respiratory 31 H 38 H 31 H Rate Blood Pressure 155/88 148/79 148/79 O2 Sat by Pulse 97 97 96 Oximetry 04/12/22 04/12/22 04/12/22 06:21 06:30 06:41 Temperature Pulse Rate 76 73 80 Pulse Rate [ From Monitor] Respiratory 29 H 29 H 29 H Rate Blood Pressure 137/80 130/84 130/84 O2 Sat by Pulse 98 97 98 Oximetry 04/12/22 04/12/22 04/12/22 06:51 07:00 07:11 Temperature Pulse Rate 76 76 80 Pulse Rate [ From Monitor] Respiratory 32 H 30 H 18 Rate Blood Pressure 158/81 149/86 149/86 O2 Sat by Pulse 97 98 99 Oximetry 04/12/22 04/12/22 04/12/22 07:21 07:30 07:41 Temperature Pulse Rate 83 88 83 Pulse Rate [ From Monitor] Respiratory 25 H 25 H 21 Rate Blood Pressure 147/87 133/97 133/97 O2 Sat by Pulse 99 99 99 Oximetry 04/12/22 04/12/22 04/12/22 07:51 08:00 08:05 Temperature 99 F Pulse Rate 89 81 Pulse Rate [ From Monitor] Respiratory 26 H 21 Rate Blood Pressure 185/111 164/98 O2 Sat by Pulse 100 99 Oximetry 04/12/22 04/12/22 04/12/22 08:06 08:09 08:11 Temperature Pulse Rate 81 85 Pulse Rate [ 81 From Monitor] Respiratory 24 24 Rate Blood Pressure 164/98 O2 Sat by Pulse 99 98 Oximetry 04/12/22 04/12/22 04/12/22 08:21 08:30 08:41 Temperature Pulse Rate 86 Pulse Rate [ From Monitor] Respiratory 25 H Rate Blood Pressure 158/101 168/91 168/91 O2 Sat by Pulse 98 99 100 Oximetry 04/12/22 04/12/22 04/12/22 08:51 09:00 09:11 Temperature Pulse Rate 93 H 89 94 H Pulse Rate [ From Monitor] Respiratory 25 H 26 H 23 Rate Blood Pressure 226/132 202/127 202/127 O2 Sat by Pulse 97 98 98 Oximetry 04/12/22 04/12/22 04/12/22 09:20 09:21 09:30 Temperature Pulse Rate 96 H 95 H 95 H Pulse Rate [ From Monitor] Respiratory 18 24 Rate Blood Pressure 219/127 225/127 232/140 O2 Sat by Pulse 98 97 99 Oximetry 04/12/22 04/12/22 04/12/22 09:41 09:51 10:00 Temperature Pulse Rate 78 81 82 Pulse Rate [ From Monitor] Respiratory 20 24 20 Rate Blood Pressure 232/140 208/121 192/122 O2 Sat by Pulse 98 98 98 Oximetry 04/12/22 04/12/22 04/12/22 10:11 10:21 10:30 Temperature Pulse Rate 86 89 86 Pulse Rate [ From Monitor] Respiratory 26 H 26 H 21 Rate Blood Pressure 192/122 211/120 215/119 O2 Sat by Pulse 99 98 98 Oximetry 04/12/22 04/12/22 04/12/22 10:41 10:51 11:00 Temperature Pulse Rate 93 H 96 H 96 H Pulse Rate [ From Monitor] Respiratory 27 H 29 H 28 H Rate Blood Pressure 215/119 222/126 225/125 O2 Sat by Pulse 98 97 97 Oximetry 04/12/22 04/12/22 04/12/22 11:11 11:21 11:30 Temperature Pulse Rate 93 H 89 89 Pulse Rate [ From Monitor] Respiratory 27 H 24 24 Rate Blood Pressure 225/125 200/123 156/95 O2 Sat by Pulse 98 99 99 Oximetry 04/12/22 04/12/22 04/12/22 11:41 11:51 12:00 Temperature Pulse Rate 87 87 86 Pulse Rate [ From Monitor] Respiratory 22 24 24 Rate Blood Pressure 156/95 142/90 130/87 O2 Sat by Pulse 97 99 99 Oximetry 04/12/22 04/12/22 04/12/22 12:02 12:03 12:05 Temperature 100.3 F H Pulse Rate 85 Pulse Rate [ 85 From Monitor] Respiratory 25 H Rate Blood Pressure O2 Sat by Pulse 99 Oximetry CBC and BMP: 04/12/22 03:56 04/12/22 03:56 ABG, PT/INR, D-dimer: ABG ABG pH 7.465 pH Units (7.350-7.450) H 04/12/22 03:27 ABG pCO2 38.4 mm Hg 04/12/22 03:27 ABG pO2 71.6 mm Hg (80.0-90.0) L 04/12/22 03:27 ABG O2 Saturation 97.0 % (95.0-99.0) 04/12/22 03:27 PT/INR, D-dimer PT 13.4 Sec. (12.2-14.9) 04/11/22 02:45 INR 0.92 (0.87-1.13) 04/11/22 02:45 D-Dimer < 135.00 ng/mlDDU (0-234) 04/11/22 02:45 Abnormal lab findings: Abnormal Labs 04/11/22 04/11/22 04/11/22 02:45 02:45 02:45 WBC 19.1 H RBC 5.73 H Hgb Hct 48.2 H MCV MCH 26 L MCHC 31 L Lymph % (Auto) 8.2 L [place] # (Auto) 0.9 H Seg Neutrophils % 86.5 H Seg Neuts % (Manual) Lymphocytes % (Manual) Seg Neutrophils # 16.5 H Seg Neutrophils # Man Monocytes # (Manual) APTT 21.0 L ABG pH ABG pO2 ABG HCO3 ABG Base Excess ABG Hemoglobin Sodium Potassium Chloride 90.3 L Carbon Dioxide BUN 53 H Creatinine 3.1 H Glucose 1147 H* POC Glucose Lactic Acid Calcium Phosphorus Magnesium AST Total Creatine Kinase 822 H CK-MB (CK-2) 12.7 H Troponin T 0.100 H Total Protein Albumin Triglycerides 527 H HDL Cholesterol 27 L 04/11/22 04/11/22 04/11/22 02:48 04:31 04:31 WBC RBC Hgb Hct MCV MCH MCHC Lymph % (Auto) [place] # (Auto) Seg Neutrophils % Seg Neuts % (Manual) Lymphocytes % (Manual) Seg Neutrophils # Seg Neutrophils # Man Monocytes # (Manual) APTT ABG pH ABG pO2 ABG HCO3 ABG Base Excess ABG Hemoglobin Sodium Potassium Chloride 93.0 L Carbon Dioxide 20 L BUN 54 H Creatinine 2.8 H Glucose 1084 H* POC Glucose > 600 H Lactic Acid Calcium 10.3 H Phosphorus 5.10 H Magnesium 3.50 H AST Total Creatine Kinase CK-MB (CK-2) Troponin T Total Protein Albumin Triglycerides HDL Cholesterol 04/11/22 04/11/22 04/11/22 06:30 06:30 07:17 WBC 24.9 H RBC 5.96 H Hgb 15.3 H Hct 48.9 H MCV 82 L MCH 26 L MCHC 31 L Lymph % (Auto) [place] # (Auto) Seg Neutrophils % Seg Neuts % (Manual) 90.0 H Lymphocytes % (Manual) 6.0 L Seg Neutrophils # Seg Neutrophils # Man 22.4 H Monocytes # (Manual) 1.0 H APTT ABG pH ABG pO2 ABG HCO3 ABG Base Excess ABG Hemoglobin Sodium 147 H Potassium 3.0 L Chloride Carbon Dioxide BUN 54 H Creatinine 2.7 H Glucose 819 H* POC Glucose > 600 H Lactic Acid Calcium 10.7 H Phosphorus 1.50 L D Magnesium 3.80 H AST Total Creatine Kinase CK-MB (CK-2) Troponin T Total Protein Albumin Triglycerides HDL Cholesterol 04/11/22 04/11/22 04/11/22 08:24 11:16 12:03 WBC RBC Hgb Hct MCV MCH MCHC Lymph % (Auto) [place] # (Auto) Seg Neutrophils % Seg Neuts % (Manual) Lymphocytes % (Manual) Seg Neutrophils # Seg Neutrophils # Man Monocytes # (Manual) APTT ABG pH ABG pO2 ABG HCO3 ABG Base Excess ABG Hemoglobin Sodium Potassium Chloride Carbon Dioxide BUN Creatinine Glucose POC Glucose > 600 H > 600 H 550 H Lactic Acid Calcium Phosphorus Magnesium AST Total Creatine Kinase CK-MB (CK-2) Troponin T Total Protein Albumin Triglycerides HDL Cholesterol 04/11/22 04/11/22 04/11/22 13:07 13:07 13:21 WBC RBC Hgb Hct MCV MCH MCHC Lymph % (Auto) [place] # (Auto) Seg Neutrophils % Seg Neuts % (Manual) Lymphocytes % (Manual) Seg Neutrophils # Seg Neutrophils # Man Monocytes # (Manual) APTT ABG pH ABG pO2 ABG HCO3 ABG Base Excess ABG Hemoglobin Sodium 155 H D Potassium 2.5 L* Chloride 112.8 H Carbon Dioxide BUN 58 H Creatinine 3.3 H Glucose 475 H POC Glucose 406 H Lactic Acid Calcium 11.1 H Phosphorus Magnesium AST Total Creatine Kinase CK-MB (CK-2) Troponin T 0.466 H* D Total Protein Albumin Triglycerides HDL Cholesterol 04/11/22 04/11/22 04/11/22 14:07 15:27 16:20 WBC RBC Hgb Hct MCV MCH MCHC Lymph % (Auto) [place] # (Auto) Seg Neutrophils % Seg Neuts % (Manual) Lymphocytes % (Manual) Seg Neutrophils # Seg Neutrophils # Man Monocytes # (Manual) APTT ABG pH ABG pO2 ABG HCO3 ABG Base Excess ABG Hemoglobin Sodium Potassium Chloride Carbon Dioxide BUN Creatinine Glucose POC Glucose 396 H 189 H 140 H Lactic Acid Calcium Phosphorus Magnesium AST Total Creatine Kinase CK-MB (CK-2) Troponin T Total Protein Albumin Triglycerides HDL Cholesterol 04/11/22 04/11/22 04/11/22 17:08 17:51 18:30 WBC RBC Hgb Hct MCV MCH MCHC Lymph % (Auto) [place] # (Auto) Seg Neutrophils % Seg Neuts % (Manual) Lymphocytes % (Manual) Seg Neutrophils # Seg Neutrophils # Man Monocytes # (Manual) APTT ABG pH ABG pO2 141.9 H ABG HCO3 ABG Base Excess ABG Hemoglobin Sodium 160 H Potassium 3.0 L Chloride 115.9 H Carbon Dioxide 17 L BUN 57 H Creatinine 3.6 H Glucose 154 H POC Glucose 119 H Lactic Acid Calcium 10.4 H Phosphorus Magnesium AST Total Creatine Kinase CK-MB (CK-2) Troponin T Total Protein Albumin Triglycerides HDL Cholesterol 04/11/22 04/11/22 04/11/22 20:18 20:18 21:53 WBC 24.8 H RBC 5.84 H Hgb Hct 47.4 H MCV 81 L MCH 26 L MCHC 31 L Lymph % (Auto) [place] # (Auto) Seg Neutrophils % Seg Neuts % (Manual) 91.0 H Lymphocytes % (Manual) 6.0 L Seg Neutrophils # Seg Neutrophils # Man 22.6 H Monocytes # (Manual) APTT ABG pH ABG pO2 ABG HCO3 ABG Base Excess ABG Hemoglobin Sodium 160 H Potassium 3.4 L Chloride 116.4 H Carbon Dioxide 21 L BUN 58 H Creatinine 4.1 H Glucose 157 H POC Glucose 126 H Lactic Acid Calcium Phosphorus Magnesium AST Total Creatine Kinase CK-MB (CK-2) Troponin T Total Protein Albumin Triglycerides HDL Cholesterol 04/11/22 04/11/22 04/12/22 23:02 23:02 01:50 WBC RBC Hgb Hct MCV MCH MCHC Lymph % (Auto) [place] # (Auto) Seg Neutrophils % Seg Neuts % (Manual) Lymphocytes % (Manual) Seg Neutrophils # Seg Neutrophils # Man Monocytes # (Manual) APTT ABG pH ABG pO2 ABG HCO3 ABG Base Excess ABG Hemoglobin Sodium 162 H* Potassium 3.0 L Chloride 118.3 H Carbon Dioxide BUN 57 H Creatinine 4.2 H Glucose POC Glucose 190 H Lactic Acid 5.20 H* Calcium Phosphorus Magnesium AST Total Creatine Kinase CK-MB (CK-2) Troponin T Total Protein Albumin Triglycerides HDL Cholesterol 04/12/22 04/12/22 04/12/22 03:09 03:27 03:56 WBC RBC Hgb Hct MCV MCH MCHC Lymph % (Auto) [place] # (Auto) Seg Neutrophils % Seg Neuts % (Manual) Lymphocytes % (Manual) Seg Neutrophils # Seg Neutrophils # Man Monocytes # (Manual) APTT ABG pH 7.465 H ABG pO2 71.6 L ABG HCO3 27.0 H ABG Base Excess 3.1 H ABG Hemoglobin 11.2 L Sodium Potassium Chloride Carbon Dioxide BUN Creatinine Glucose POC Glucose 134 H Lactic Acid 2.50 H* Calcium Phosphorus Magnesium AST Total Creatine Kinase CK-MB (CK-2) Troponin T Total Protein Albumin Triglycerides HDL Cholesterol 04/12/22 04/12/22 04/12/22 03:56 03:56 04:41 WBC 17.5 H RBC Hgb 11.5 L D Hct MCV 81 L MCH 26 L MCHC Lymph % (Auto) [place] # (Auto) Seg Neutrophils % Seg Neuts % (Manual) 85.0 H Lymphocytes % (Manual) Seg Neutrophils # Seg Neutrophils # Man 14.9 H Monocytes # (Manual) APTT ABG pH ABG pO2 ABG HCO3 ABG Base Excess ABG Hemoglobin Sodium 160 H Potassium 2.8 L* Chloride 118.6 H Carbon Dioxide BUN 56 H Creatinine 4.5 H Glucose 126 H POC Glucose 137 H Lactic Acid Calcium Phosphorus Magnesium AST 53 H Total Creatine Kinase CK-MB (CK-2) Troponin T Total Protein 5.0 L Albumin 3.1 L Triglycerides HDL Cholesterol 04/12/22 04/12/22 05:59 06:56 WBC RBC Hgb Hct MCV MCH MCHC Lymph % (Auto) [place] # (Auto) Seg Neutrophils % Seg Neuts % (Manual) Lymphocytes % (Manual) Seg Neutrophils # Seg Neutrophils # Man Monocytes # (Manual) APTT ABG pH ABG pO2 ABG HCO3 ABG Base Excess ABG Hemoglobin Sodium Potassium Chloride Carbon Dioxide BUN Creatinine Glucose POC Glucose 125 H 122 H Lactic Acid Calcium Phosphorus Magnesium AST Total Creatine Kinase CK-MB (CK-2) Troponin T Total Protein Albumin Triglycerides HDL Cholesterol
[2022-04-12] MEDS: niCARdipine 50 MG in SODIUM CHLORIDE 0.9% 250ML 230 ML IV SCH ×2 (13:57→19:45)
[2022-04-12] MEDS ORDERED: hydrALAZINE 20 MG/1 ML INJ IV PRN (14:00)
[2022-04-12 14:08] LABS: Calcium 9.2 mg/dL (8.4-10.2)
[2022-04-12] MEDS ORDERED: DEXTROSE 50% IN WATER (25GM) 50 ML SYRINGE IV PRN (14:35)
[2022-04-12] MEDS ORDERED: INSULIN GLARGINE 100 UNITS/ML SUB-Q SCH (15:15)
[2022-04-12] MEDS: ACETAMINOPHEN 325 MG TAB PO PRN ×2 (16:14→20:52)
--- NOTE | 2022-04-12 17:00 | Progress Note ---
Assessment and Plan Assessment and plan: This is a 52-year-old female with DM and HTN admitted for NK with acute kidney injury s/p cardiac arrest now intubated with acute hypoxic respiratory failure Neuro: Acute metabolic encephalopathy -S/p Precedex drip -Drip not infusing -As needed Ativan -Avoid delirium -Reorientation as needed -Maintain sleep-wake cycle -As needed analgesia -CT head pending -Neurology consulted, appreciate recommendations Cardiac: Hypertensive urgency, s/p cardiorespiratory arrest on 04/11, NSTEMI type II, h/o HTN, elevated triglycerides -Cardiology consulted, appreciate recommendations -Blood pressure monitoring per protocol -Nicardipine drip -Goal systolic blood pressure less than 160 -Beta-deion, aspirin, statin -Echocardiogram shows EF of 60 to 65%-As needed nitroglycerin -S/p 8 L lactated Ringer bolus -Hydralazine as needed Respiratory: Acute hypoxic respiratory failure -CCM consulted, appreciate recommendations -Intubated s/p cardiorespiratory arrest on 04/11 with 8.00 ETT at 20 -A.m. vent settings: Assist-control/PRVC rate 20, tidal volume 500, PEEP 8 FiO2 45% -See RT notes for titration -A.m. ABG and CXR noted -VAP bundle -SPO2 monitoring GI: Morbid obesity, moderate protein calorie malnutrition -24 hours +866 mL -PPI -NTR consulted for tube feedings -BR: Senokot : Acute kidney injury, hypophosphatemia, hypokalemia, severe hypernatremia, hypermagnesemia -Nephrology consulted, appreciate recommendations -Strict intake and output -Renally dose medications -Avoid nephrotoxic medications -Daily weights -Urine lites pending -fluid deficit 7.6 L -D5 W at 75 mL/h -Free water flush 200 mL every 4 -Renal ultrasound pending -Trend BMP -Per nephrology ORBERT likely due to uncontrolled diabetes, underlying CKD ID: Possible aspiration pneumonia, lactic acidosis -Infectious disease consulted, appreciate recommendation -Antibiotic therapy with azithromycin and Rocephin -f/u blood culture -Monitor WBC and temperature curve Endo: S/p HHNK, h/o DM -S/p insulin drip -Avoid hypoglycemia -AiC 13.1 -SSI -Accu-Cheks q. every 6 -Long-acting insulin, titrate as needed Heme: Leukocytosis -Trend CBC -Transfuse hemoglobin less than 7 -Monitor for signs of bleeding -heparin subq -SCDs to BLE while in bed The high probability of a clinically significant, sudden or life threatening deterioration of the [multiple] system(s) required my full and direct attention, intervention and personal management. The aggregate critical care time was [60] minutes. This time is in addition to time spent performing reported procedures but includes the following: [x] Data Review and interpretation [x] Patient assessment and monitoring of vital signs [x] Documentation [x] Medication orders and management Disposition Plan: icu Total Time Spent with Patient (Minutes): 60 History Interval history: This is this is a 52-year-old female with DM, HTN who presented to the emergency department on 04/11 with complaints of headache and altered mental status. Patient reportedly [place] in his car [place] and was found to have decreased responsiveness by friend. In the emergency department patient stated that he had a headache for the past 2 days was expressing syncopal episode since 04/10. Work-up in the emergency department revealed hyperglycemia at 1147, elevated BUN/creatinine at 3.1/53, metabolic acidosis with bicarb of 23, anion gap elevated at 31, troponin 0.0100. Patient was admitted to the hospitalist service with consults to CCM, cardiology and nephrology with HHN K, acute metabolic encephalopathy, acute kidney injury. Hospital course to date: 04/11: Patient seen at bedside. Patient agitated and pulled his IV access. Ativan every 4hrs PRN ordered. Will apply bilateral arm restraint for safety if needed. Elevated WBC 19.1-Blood culture ordered. Reviewed Water Gas Operator note and reces- ROBERT likely 2/2 to elevated blood sugar. Called by patient nurse-patient restless and agitated-on bilateral arm mitten. Pt was given ativan 2mg at 12:28 pm and he is on precedex for sedation.. At 1300pm-pt blood pressure dropped 67/49 with map of 41. Patient assessed-he has shallow breathing and not responsive.Ramazicon 0.2mg given IV. NS bolus started. Patient condition improved. breathing stable and regular. Blood pressure improved 81/47 and 95/64 with map of 71. Per RN patient was having agonal breathing with moments of apnea which eventually progressed to respiratory arrest and subsequent cardiac arrest. Patient was intubated by anesthesia at bedside. 04/12: Patient transition to home insulin drip, not following any commands and is severely hypertensive. As needed labetalol and hydralazine given. Patient is on beta-deion per cardiology. Patient was eventually needed to be initiated on nicardipine drip for blood pressure control. Given inability to follow commands coupled with hypertension, stat CT head ordered. CCM decreased PEEP on ventilator. No indication for SHANKER OUT at this time per nephrology. Patient started on azithromycin in addition to Rocephin due to leukocytosis, febrile possible aspiration yesterday. Hospitalist Physical - Constitutional Vitals: Temp Pulse Resp BP Pulse Ox 102 F H 104 H 28 H 179/95 99 04/12/22 16:00 04/12/22 16:12 04/12/22 16:12 04/12/22 16:00 04/12/22 16:12 General appearance: Present: obese HEART Score - HEART Score Troponin: Troponin T 0.466 ng/mL (0.00-0.029) H* D 04/11/22 13:07 Results - Labs CBC & Chem 7: 04/12/22 03:56 04/12/22 13:32 Labs: Laboratory Last Values WBC 17.5 K/mm3 (4.5-11.0) H 04/12/22 03:56 RBC 4.49 M/mm3 (3.65-5.03) 04/12/22 03:56 Hgb 11.5 gm/dl (11.8-15.2) L D 04/12/22 03:56 Hct 36.5 % (35.5-45.6) D 04/12/22 03:56 MCV 81 fl (84-94) L 04/12/22 03:56 MCH 26 pg (28-32) L 04/12/22 03:56 MCHC 32 % (32-34) 04/12/22 03:56 RDW 14.2 % (13.2-15.2) 04/12/22 03:56 Plt Count 155 K/mm3 (140-440) 04/12/22 03:56 Lymph % (Auto) Ob/Gyn Physician 04/11/22 20:18 [place] % (Auto) Ob/Gyn Physician 04/11/22 20:18 Eos % (Auto) Ob/Gyn Physician 04/11/22 20:18 Baso % (Auto) Ob/Gyn Physician 04/11/22 20:18 Lymph # (Auto) Ob/Gyn Physician 04/11/22 20:18 [place] # (Auto) Ob/Gyn Physician 04/11/22 20:18 Eos # (Auto) Ob/Gyn Physician 04/11/22 20:18 Baso # (Auto) Ob/Gyn Physician 04/11/22 20:18 Add Manual Diff Complete 04/12/22 03:56 Total Counted 100 04/12/22 03:56 Seg Neutrophils % Ob/Gyn Physician 04/11/22 20:18 Seg Neuts % (Manual) 85.0 % (40.0-70.0) H 04/12/22 03:56 Band Neutrophils % 0 % 04/12/22 03:56 Lymphocytes % (Manual) 15.0 % (13.4-35.0) 04/12/22 03:56 Reactive Lymphs % (Man) 0 % 04/12/22 03:56 Monocytes % (Manual) 0 % (0.0-7.3) 04/12/22 03:56 Eosinophils % (Manual) 0 % (0.0-4.3) 04/12/22 03:56 Basophils % (Manual) 0 % (0.0-1.8) 04/12/22 03:56 Metamyelocytes % 0 % 04/12/22 03:56 Myelocytes % 0 % 04/12/22 03:56 Promyelocytes % 0 % 04/12/22 03:56 Blast Cells % 0 % 04/12/22 03:56 Nucleated RBC % Not Reportable 04/12/22 03:56 Seg Neutrophils # Ob/Gyn Physician 04/11/22 20:18 Seg Neutrophils # Man 14.9 K/mm3 (1.8-7.7) H 04/12/22 03:56 Band Neutrophils # 0.0 K/mm3 04/12/22 03:56 Lymphocytes # (Manual) 2.6 K/mm3 (1.2-5.4) 04/12/22 03:56 Abs React Lymphs (Man) 0.0 K/mm3 04/12/22 03:56 Monocytes # (Manual) 0.0 K/mm3 (0.0-0.8) 04/12/22 03:56 Eosinophils # (Manual) 0.0 K/mm3 (0.0-0.4) 04/12/22 03:56 Basophils # (Manual) 0.0 K/mm3 (0.0-0.1) 04/12/22 03:56 Metamyelocytes # 0.0 K/mm3 04/12/22 03:56 Myelocytes # 0.0 K/mm3 04/12/22 03:56 Promyelocytes # 0.0 K/mm3 04/12/22 03:56 Blast Cells # 0.0 K/mm3 04/12/22 03:56 WBC Morphology Not Reportable 04/12/22 03:56 Hypersegmented Neuts Not Reportable 04/12/22 03:56 Hyposegmented Neuts Not Reportable 04/12/22 03:56 Hypogranular Neuts Not Reportable 04/12/22 03:56 Smudge Cells Not Reportable 04/12/22 03:56 Toxic Granulation Not Reportable 04/12/22 03:56 Toxic Vacuolation Not Reportable 04/12/22 03:56 Dohle Bodies Not Reportable 04/12/22 03:56 Pelger-Huet Anomaly Not Reportable 04/12/22 03:56 Jewell Rods Not Reportable 04/12/22 03:56 Platelet Estimate Consistent w auto 04/12/22 03:56 Clumped Platelets Not Reportable 04/12/22 03:56 Plt Clumps, EDTA Not Reportable 04/12/22 03:56 Large Platelets Not Reportable 04/12/22 03:56 Giant Platelets Not Reportable 04/12/22 03:56 Platelet Satelliting Not Reportable 04/12/22 03:56 Plt Morphology Comment Not Reportable 04/12/22 03:56 RBC Morphology Not Reportable 04/12/22 03:56 Dimorphic RBCs Not Reportable 04/12/22 03:56 Polychromasia Not Reportable 04/12/22 03:56 Hypochromasia 1+ 04/12/22 03:56 Poikilocytosis Not Reportable 04/12/22 03:56 Anisocytosis Not Reportable 04/12/22 03:56 Microcytosis Not Reportable 04/12/22 03:56 Macrocytosis Not Reportable 04/12/22 03:56 Spherocytes Not Reportable 04/12/22 03:56 Pappenheimer Bodies Not Reportable 04/12/22 03:56 Sickle Cells Not Reportable 04/12/22 03:56 Target Cells Not Reportable 04/12/22 03:56 Tear Drop Cells Not Reportable 04/12/22 03:56 Ovalocytes Not Reportable 04/12/22 03:56 Helmet Cells Not Reportable 04/12/22 03:56 Parikh-[place] Bodies Not Reportable 04/12/22 03:56 [place] Rings Not Reportable 04/12/22 03:56 Charanjit Cells Not Reportable 04/12/22 03:56 Bite Cells Not Reportable 04/12/22 03:56 Crenated Cell Not Reportable 04/12/22 03:56 Elliptocytes Not Reportable 04/12/22 03:56 Acanthocytes (Spur) Not Reportable 04/12/22 03:56 Rouleaux Not Reportable 04/12/22 03:56 Hemoglobin C Crystals Not Reportable 04/12/22 03:56 Schistocytes Not Reportable 04/12/22 03:56 Malaria parasites Not Reportable 04/12/22 03:56 Jonathan Bodies Not Reportable 04/12/22 03:56 Hem Pathologist Commnt No 04/12/22 03:56 PT 13.4 Sec. (12.2-14.9) 04/11/22 02:45 INR 0.92 (0.87-1.13) 04/11/22 02:45 APTT 21.0 Sec. (24.2-36.6) L 04/11/22 02:45 D-Dimer < 135.00 ng/mlDDU (0-234) 04/11/22 02:45 ABG pH 7.465 pH Units (7.350-7.450) H 04/12/22 03:27 ABG pCO2 38.4 mm Hg 04/12/22 03:27 ABG pO2 71.6 mm Hg (80.0-90.0) L 04/12/22 03:27 ABG HCO3 27.0 mmol/L (20.0-26.0) H 04/12/22 03:27 ABG O2 Saturation 97.0 % (95.0-99.0) 04/12/22 03:27 ABG O2 Content 15.0 (0.0-44) 04/12/22 03:27 ABG Base Excess 3.1 mmol/L (-2.0-3.0) H 04/12/22 03:27 ABG Hemoglobin 11.2 gm/dl (14.0-18.0) L 04/12/22 03:27 ABG Carboxyhemoglobin 1.1 % (0.0-5.0) 04/12/22 03:27 ABG Methemoglobin 0.6 % (0.0-1.5) 04/12/22 03:27 VBG pH 7.320 (7.320-7.420) 04/11/22 02:45 Oxyhemoglobin 95.4 % (95.0-99.0) 04/12/22 03:27 FiO2 45 % 04/12/22 03:27 Sodium 157 mmol/L (137-145) H 04/12/22 13:32 Potassium 4.1 mmol/L (3.6-5.0) D 04/12/22 13:32 Chloride 116.1 mmol/L (98-107) H 04/12/22 13:32 Carbon Dioxide 24 mmol/L (22-30) 04/12/22 13:32 Anion Gap 21 mmol/L 04/12/22 13:32 BUN 50 mg/dL (9-20) H 04/12/22 13:32 Creatinine 3.6 mg/dL (0.8-1.3) H 04/12/22 13:32 Estimated GFR 18 ml/min 04/12/22 13:32 BUN/Creatinine Ratio 14 % 04/12/22 13:32 Glucose 116 mg/dL (75-100) H 04/12/22 13:32 POC Glucose 122 mg/dL (70-105) H 04/12/22 06:56 Hemoglobin A1c 13.5 % (4-6) H 04/12/22 15:13 Lactic Acid 2.20 mmol/L (0.7-2.0) H* 04/12/22 15:13 Calcium 9.2 mg/dL (8.4-10.2) 04/12/22 13:32 Phosphorus 2.70 mg/dL (2.5-4.5) D 04/12/22 13:32 Magnesium 3.80 mg/dL (1.7-2.3) H 04/11/22 06:30 Total Bilirubin 0.50 mg/dL (0.1-1.2) 04/12/22 03:56 AST 53 units/L (5-40) H 04/12/22 03:56 ALT 25 units/L (7-56) 04/12/22 03:56 Alkaline Phosphatase 60 units/L (35-129) 04/12/22 03:56 Total Creatine Kinase 822 units/L (55-170) H 04/11/22 02:45 CK-MB (CK-2) 12.7 ng/mL (0.0-4.0) H 04/11/22 02:45 CK-MB (CK-2) Rel Index 1.5 (0-4) 04/11/22 02:45 Troponin T 0.466 ng/mL (0.00-0.029) H* D 04/11/22 13:07 Total Protein 5.0 g/dL (6.3-8.2) L 04/12/22 03:56 Albumin 3.1 g/dL (3.9-5) L 04/12/22 03:56 Albumin/Globulin Ratio 1.6 % 04/12/22 03:56 Triglycerides 527 mg/dL (2-149) H 04/11/22 02:45 Cholesterol 132 mg/dL (50-199) 04/11/22 02:45 LDL Cholesterol Direct TNR 04/11/22 02:45 HDL Cholesterol 27 mg/dL (40-59) L 04/11/22 02:45 Cholesterol/HDL Ratio 4.88 % 04/11/22 02:45 Procalcitonin 0.78 ng/mL (<0.15) 04/11/22 17:51 Urine Color Straw (Yellow) 04/11/22 Unknown Urine Turbidity Clear (Clear) 04/11/22 Unknown Urine pH 5.0 (5.0-7.0) 04/11/22 Unknown Ur Specific Reading 1.026 (1.003-1.030) 04/11/22 Unknown Urine Protein <15 mg/dl mg/dL (Negative) 04/11/22 Unknown Urine Glucose (UA) >=500 mg/dL (Negative) 04/11/22 Unknown Urine Ketones 20 mg/dL (Negative) 04/11/22 Unknown Urine Blood Mod (Negative) 04/11/22 Unknown Urine Nitrite Neg (Negative) 04/11/22 Unknown Urine Bilirubin Neg (Negative) 04/11/22 Unknown Urine Urobilinogen < 2.0 mg/dL (<2.0) 04/11/22 Unknown Ur Leukocyte Esterase Neg (Negative) 04/11/22 Unknown Urine WBC (Auto) 2.0 /HPF (0.0-6.0) 04/11/22 Unknown Urine RBC (Auto) < 1.0 /HPF (0.0-6.0) 04/11/22 Unknown U Epithel Cells (Auto) < 1.0 /HPF (0-13.0) 04/11/22 Unknown Urine Bacteria (Auto) 1+ /HPF (Negative) 04/11/22 Unknown Urine Mucus Few /HPF 04/11/22 Unknown Urine Opiates Screen Presumptive negative 04/11/22 Unknown Urine Methadone Screen Presumptive negative 04/11/22 Unknown Ur Barbiturates Screen Presumptive negative 04/11/22 Unknown Ur Phencyclidine Scrn Presumptive negative 04/11/22 Unknown Ur Amphetamines Screen Presumptive negative 04/11/22 Unknown U Benzodiazepines Scrn Presumptive negative 04/11/22 Unknown Urine Cocaine Screen Presumptive negative 04/11/22 Unknown U Marijuana (THC) Screen Presumptive positive 04/11/22 Unknown Drugs of Abuse Note Disclamer 04/11/22 Unknown Plasma/Serum Alcohol < 0.01 % (0-0.07) 04/11/22 02:52 Microbiology: Microbiology 04/11/22 13:07 Peripheral/Venous Blood Culture - Preliminary NO GROWTH AFTER 24 HOURS 04/12/22 10:05 Tracheal Aspirate Sputum Culture - Preliminary 04/12/22 10:59 Peripheral/Venous Blood Culture - Preliminary Culture in Progress 04/12/22 10:59 Peripheral/Venous Blood Culture - Preliminary Culture in Progress [place]/IV: Voiding Method Indwelling Catheter Active Medications - Current Medications Current Medications: Generic Name Dose Route Start Last Admin Trade Name Freq PRN Reason Stop Dose Admin Acetaminophen 650 mg 04/11/22 06:00 04/12/22 16:14 Acetaminophen 325 Mg Tab PO 650 mg Q4H PRN Administration Pain MILD(1-3)/Fever >100.5/TORRES Albuterol 2.5 mg 04/11/22 05:30 Albuterol 2.5 Mg/3 Ml Nebu IH Q3HRT PRN Shortness Of Breath Aspirin 325 mg 04/12/22 11:00 04/12/22 10:33 Aspirin 325 Mg Tab FEEDTUBE 325 mg QDAY VERNON Administration Atorvastatin Calcium 40 mg 04/12/22 22:00 Atorvastatin 40 Mg Tab FEEDTUBE QHS VERNON Dextrose 50 ml 04/12/22 14:35 Dextrose 50% In Water (25gm) 50 Ml Syringe IV Q30MIN PRN Hypoglycemia Protocol Famotidine 10 mg 04/12/22 22:00 Famotidine 10 Mg Tab FEEDTUBE BID VERNON Fentanyl 50 mcg 04/11/22 18:25 Fentanyl 100 Mcg/2 Ml Inj IV Q10MIN PRN ANALGESIA Haloperidol Lactate 5 mg 04/11/22 11:25 04/11/22 11:43 Haloperidol Lactate 5 Mg/1 Ml Inj IV 5 mg Q6H PRN Administration Agitation Heparin Sodium (Porcine) 5,000 unit 04/11/22 10:00 04/12/22 09:35 Heparin 5,000 Unit/1 Ml Vial SUB-Q 5,000 unit Q12HR VERNON Administration Hydralazine HCl 10 mg 04/12/22 14:00 Hydralazine 20 Mg/1 Ml Inj IV Q4H PRN Hypertension Hydrophilic Ointment 1 applic 04/11/22 18:25 Lip Therapy Vaseline TP Q2HR PRN Dry Lips Dexmedetomidine HCl 200 mcg/ 50 mls @ 7.258 mls/hr 04/11/22 10:00 04/12/22 00:07 Sodium Chloride IV 0 mcg/kg/hr TITRATE VERNON 0 mls/hr Titration Protocol 0.2 MCG/KG/HR Fentanyl Citrate 2,000 mcg in 100 mls @ 7.258 mls/hr 04/11/22 19:00 Fentanyl Drip Premix IV TITR VERNON Protocol 1 MCG/KG/HR Vasopressin 20 unit/ Sodium 101 mls @ 9.09 mls/hr 04/12/22 00:02 Chloride IV TITR VERNON Protocol 0.03 UNITS/MIN NORepinephrine/NS 8 MG-250 ML 8 mg in 250 mls @ 3.75 mls/hr 04/12/22 01:42 Norepinephrine/Ns 8 Mg-250 Ml (Double Conc) IV TITRATE VERNON Protocol 2 MCG/MIN Ceftriaxone Sodium 2 gm in 100 mls @ 200 mls/hr 04/12/22 11:00 04/12/22 10:18 Rocephin/Ns 2 Gm/100 Ml IV 200 mls/hr Q24H VERNON Administration Protocol Dextrose 1,000 mls @ 75 mls/hr 04/12/22 11:00 04/12/22 10:33 D5w IV 75 mls/hr DIRECT VERNON Administration Nicardipine HCl 50 mg/ Sodium 250 mls @ 25 mls/hr 04/12/22 11:00 04/12/22 16:07 Chloride IV 10 mg/hr TITR VERNON 50 mls/hr Titration Protocol 5 MG/HR Azithromycin 500 mg in 250 mls @ 250 mls/hr 04/12/22 12:00 04/12/22 12:39 Zithromax/Ns IV 250 mls/hr Q24H VERNON Administration Protocol Insulin Glargine 25 units 04/12/22 15:15 04/12/22 15:34 Insulin Glargine 100 Units/Ml SUB-Q 04/12/22 18:15 25 units ONCE@1515 [facility] Administration Insulin Glargine 25 units 04/13/22 22:00 Insulin Glargine 100 Units/Ml SUB-Q QHS VERNON Insulin Human Lispro 0 unit 04/12/22 18:00 Insulin Lispro 100 Unit/Ml SUB-Q Q6HR [facility] Protocol Lorazepam 2 mg 04/11/22 08:30 04/11/22 12:28 Lorazepam 2 Mg/Ml Vial IV 2 mg Q4H PRN Administration Agitation Metoprolol Tartrate 12.5 mg 04/12/22 11:00 04/12/22 10:32 Metoprolol Tartrate 25 Mg Tab FEEDTUBE 12.5 mg BID VERNON Administration Morphine Sulfate 2 mg 04/11/22 06:00 Morphine 2 Mg/1 Ml Inj IV Q4H PRN Pain, Moderate (4-6) Morphine Sulfate 4 mg 04/11/22 06:00 Morphine 4 Mg/1 Ml Inj IV Q4H PRN Pain , Severe (7-10) Multi-Ingred Cream/Lotion/Oil/Oint 1 applic 04/11/22 18:25 Mineral Oil/Petrolatum, White Ophth Oint 3.5 Gm OU Q4HR PRN Dry Eye(s) Nitroglycerin 0.4 mg 04/11/22 06:00 Nitroglycerin 0.4 Mg Tab Subl SL Q5M PRN Chest Pain Ondansetron HCl 4 mg 04/11/22 06:00 Ondansetron 4 Mg/2 Ml Inj IV Q8H PRN Nausea And Vomiting Senna/Docusate Sodium 1 tab 04/11/22 22:00 04/12/22 10:27 Sennosides/Docusate Sodium 8.6/50 Mg Tab FEEDTUBE Not Given BID VERNON Sodium Chloride 10 ml 04/11/22 10:00 04/12/22 09:33 Sodium Chloride 0.9% 10 Ml Flush Syringe IV 10 ml BID VERNON Administration Sodium Chloride 10 ml 04/11/22 06:00 Sodium Chloride 0.9% 10 Ml Flush Syringe IV PRN PRN LINE FLUSH Nutrition/Malnutrition Assess - Dietary Evaluation Nutrition/Malnutrition Findings: Nutrition Notes Start: 04/11/22 17:56 Freq: Status: Active Protocol: Document 04/12/22 10:23 [facility] (Rec: 04/12/22 10:29 [facility] [id number]) Nutrition Notes Need for Assessment generated from: 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 Pt intubated yesterday; feeding tube in place, however, consult for TF not yet received. Burn Absent Trauma Absent Minimum of two criteria No #1 Nutrition Diagnosis Inadequate oral intake Etiology mech ventilation As Evidenced by Signs and Symptoms pt NPO Is patient on ventilator? Yes Is Patient Ambulatory and/or Out of Bed No REE-([facility]-confined to bed) 2804.148 Kcal/Kg value to use for calculation 14 Approximate Energy Requirements Using 2031 kcal/Kg Calculation Used for Recommendations Kcal/kg Additional Notes Pro needs 0.8-1.2g/kg adjBW: 90-136g/day Fluid needs per MD Nutrition Intervention Nutrition Support: Recommend Glucerna 1.2 at 70ml /hr when TF consult received. Goal #1 Start EN support to meet nutrient needs Follow-Up By: 04/13/22 Additional Comments F/U: TF consult, vent status, pressors, renal function
[2022-04-12] MEDS: INSULIN LISPRO 100 UNIT/ML SUB-Q SCH (17:24)
[2022-04-12 20:03] LABS: Calcium 8.6 mg/dL (8.4-10.2)
--- NOTE | 2022-04-12 22:11 | Cat Scan Report ---
CT head/brain wo con INDICATION / CLINICAL INFORMATION: 52 years Male; ams/post cardiac arrest. TECHNIQUE: Routine CT head without contrast. All CT scans at this location are performed using CT dos e reduction for ALARA by means of automated exposure control. COMPARISON: The study is compared to the previous CT of 04/11/2022. FINDINGS: BRAIN / INTRACRANIAL CONTENTS: There is developing edema involving posterior left cerebellum measurin g 3.5 similar AP by 5.0 cm transverse in greatest dimensions most consistent with evolving infarct fr om 04/11/2022. There is associated mass effect mild effacement of the fourth ventricle and quadrigemin al cistern. However, the remaining vertebral system appears unchanged in size and configuration. Ther e also appear to be milder developing ischemic changes within the posterior right cerebellar white ma tter. There has been developing decreased attenuation within the basal ganglia bilaterally, particularly in volving the globi pallidi, greater on the right. The findings would again be indicative of developing ischemic changes. There is no clear CT evidence of hemorrhagic transformation on the current exam. ORBITS: No significant abnormality of visualized orbits. SINUSES / MASTOIDS: There is presence of nasogastric tube. Is mild mucosal thickening along the infer ior right maxillary sinus. Minimal thickening is seen within the ethmoid air cells and sphenoid sinus es. CRANIOCERVICAL JUNCTION: No significant abnormality. ADDITIONAL FINDINGS: None. IMPRESSION: 1. 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 There are also evolving infarcts involving basal ganglia bilaterally, larger on the right. 3. There is no clear CT evidence of hemorrhagic transformation on the current Signer Name: Néstor Edward MD Signed: 04/12/2022 10:06 PM Workstation Name: [id number]
[2022-04-12] MEDS: fentaNYL 100 MCG/2 ML INJ IV PRN (22:55)
[2022-04-12] MEDS: FAMOTIDINE 10 MG TAB FEEDTUBE SCH (22:58)
[2022-04-13] MEDS: niCARdipine 50 MG in SODIUM CHLORIDE 0.9% 250ML 230 ML IV SCH ×6 (00:45→17:08)
[2022-04-13] MEDS: FREE WATER PO SCH ×3 (00:59→07:10)
[2022-04-13] MEDS: INSULIN LISPRO 100 UNIT/ML SUB-Q SCH ×4 (00:59→17:26)
--- NOTE | 2022-04-13 01:17 | XRay Report ---
CHEST 1 VIEW 04/13/2022 1:00 AM INDICATION / CLINICAL INFORMATION: follow up respiratory failure. COMPARISON: One view of the chest from 04/11/2022. FINDINGS: SUPPORT DEVICES: Unchanged. HEART / MEDIASTINUM: No significant abnormality. LUNGS / PLEURA: No significant pulmonary abnormality. No significant pleural effusion. No pneumothora x. ADDITIONAL FINDINGS: No significant additional findings. IMPRESSION: 1. No acute abnormality of the chest. No significant interval changes. Signer Name: Unruly Pollock MD Signed: 04/13/2022 1:13 AM Workstation Name: [id number]
[2022-04-13] MEDS: fentaNYL 100 MCG/2 ML INJ IV PRN ×2 (02:53→06:25)
[2022-04-13 04:33] LABS: ABG Base Excess 2.7 mmol/L (-2.0-3.0); ABG Methemoglobin 0.6 % (0.0-1.5); ABG Oxygen Saturation 95.7 % (95.0-99.0); ABG PCO2 40.5 mm Hg; ABG PH 7.442 pH Units (7.350-7.450); ABG PO2 66.8 mm Hg (80.0-90.0)
[2022-04-13 05:18] LABS: Hematocrit 37.5 % (35.5-45.6); Hemoglobin 11.9 gm/dl (11.8-15.2); Mean Corpuscular HGB Conc 32 % (32-34); Mean Corpuscular Volume 81 fl (84-94); Platelet Count 125 K/mm3 (140-440); Red Blood Count 4.62 M/mm3 (3.65-5.03); Red Cell Distribution Width 14.4 % (13.2-15.2)
[2022-04-13 05:27] LABS: Calcium 8.4 mg/dL (8.4-10.2)
[2022-04-13] MEDS: POTASSIUM CHLORIDE 10 MEQ 10 MEQ/100 ML BAG IV SCH ×2 (06:11→07:06)
[2022-04-13] MEDS: ACETAMINOPHEN 325 MG TAB PO PRN ×2 (06:32→16:55)
--- NOTE | 2022-04-13 08:22 | Progress Note ---
Assessment and Plan Impression: * ROBERT--ATN * HONKS * Hyperglycemia--uncontrolled * hypernatremia--pseudo * hypokalemia * HTN * volume depletion Plan: * management of HONKS per primary team * keep MAP>65, vasopressors prn * cr better today * sodium improving, add KCL to ivfs * vent managemant per ICU * aggressive volume resuscitation * strict i/os and daily lytes * k noted, replete prn, follow up mag levels * cr is better, continue hydration * follow up renal us noted * ua noted * robert likely due to uncontrolled DM, as underlying CKD likely * no indication for CLINICAL DERMATOLOGIST at this time Subjective Date of service: 04/13/22 Principal diagnosis: HHNKS, AMS, NSTEMI type 2, ARF Interval history: resting in bed acute events noted Objective - Exam Narrative Exam: General appearance: Present: no acute distress, well-nourished - EENT Eyes: Present: PERRL ENT: hearing intact, clear oral mucosa - Neck Neck: Present: supple, normal ROM - Respiratory Respiratory effort: normal Respiratory: bilateral: diminished - Cardiovascular Heart Sounds: Present: S1 & S2. Absent: rub, click - Extremities Extremities: pulses symmetrical, No edema Peripheral Pulses: within normal limits - Abdominal General gastrointestinal: Present: soft, non-tender, non-distended, normal bowel sounds Male genitourinary: Present: normal - Integumentary Integumentary: Present: clear, warm, dry - Musculoskeletal Musculoskeletal: gait normal, strength equal bilaterally - Psychiatric Psychiatric: other (Patient is lethargic) - Neurologic Neurologic: CNII-XII intact, moves all extremities, other (Patient is altered mental status) - Vital Signs Vital signs: Vital Signs - 12hr 04/12/22 04/12/22 04/12/22 20:30 20:41 20:51 Temperature Pulse Rate 113 H 117 H 117 H Pulse Rate [ From Monitor] Respiratory 27 H 30 H 30 H Rate Blood Pressure 155/90 155/90 171/98 O2 Sat by Pulse 96 98 99 Oximetry 04/12/22 04/12/22 04/12/22 21:00 21:11 21:21 Temperature Pulse Rate 116 H 111 H 111 H Pulse Rate [ From Monitor] Respiratory 29 H 27 H 27 H Rate Blood Pressure 174/91 174/91 154/78 O2 Sat by Pulse 97 97 98 Oximetry 04/12/22 04/12/22 04/12/22 21:31 21:41 21:51 Temperature Pulse Rate 110 H 110 H 109 H Pulse Rate [ From Monitor] Respiratory 26 H 27 H 26 H Rate Blood Pressure 160/76 160/76 136/74 O2 Sat by Pulse 95 98 98 Oximetry 04/12/22 04/12/22 04/12/22 22:00 22:11 22:21 Temperature Pulse Rate 108 H 108 H 114 H Pulse Rate [ 104 H From Monitor] Respiratory 26 H 27 H 30 H Rate Blood Pressure 139/82 139/82 139/93 O2 Sat by Pulse 96 98 99 Oximetry 04/12/22 04/12/22 04/12/22 22:30 22:41 22:51 Temperature Pulse Rate 115 H 114 H 116 H Pulse Rate [ From Monitor] Respiratory 30 H 29 H 31 H Rate Blood Pressure 157/99 157/99 159/98 O2 Sat by Pulse 95 Oximetry 04/12/22 04/12/22 04/12/22 23:00 23:11 23:21 Temperature Pulse Rate 106 H 106 H 104 H Pulse Rate [ From Monitor] Respiratory 23 Rate Blood Pressure 139/80 139/80 138/86 O2 Sat by Pulse 98 Oximetry 04/12/22 04/12/22 04/12/22 23:30 23:41 23:51 Temperature Pulse Rate 101 H 96 H 90 Pulse Rate [ From Monitor] Respiratory 23 23 24 Rate Blood Pressure 145/85 145/85 138/80 O2 Sat by Pulse 93 98 98 Oximetry 04/13/22 04/13/22 04/13/22 00:00 00:10 00:11 Temperature 100.2 F H Pulse Rate 86 87 85 Pulse Rate [ From Monitor] Respiratory 25 H 23 Rate Blood Pressure 147/81 138/80 147/81 O2 Sat by Pulse 98 98 98 Oximetry 04/13/22 04/13/22 04/13/22 00:21 00:30 00:41 Temperature Pulse Rate 85 84 86 Pulse Rate [ From Monitor] Respiratory 23 22 22 Rate Blood Pressure 150/89 138/80 138/80 O2 Sat by Pulse 98 94 98 Oximetry 04/13/22 04/13/22 04/13/22 00:51 01:00 01:11 Temperature Pulse Rate 87 89 92 H Pulse Rate [ From Monitor] Respiratory 26 H 25 H 27 H Rate Blood Pressure 139/83 152/87 152/87 O2 Sat by Pulse 99 98 99 Oximetry 04/13/22 04/13/22 04/13/22 01:21 01:30 01:41 Temperature Pulse Rate 93 H 94 H 94 H Pulse Rate [ From Monitor] Respiratory 27 H 24 22 Rate Blood Pressure 157/92 143/90 143/90 O2 Sat by Pulse 99 99 Oximetry 04/13/22 04/13/22 04/13/22 01:51 02:00 02:11 Temperature Pulse Rate 99 H 98 H 96 H Pulse Rate [ 110 H From Monitor] Respiratory 28 H 25 H 21 Rate Blood Pressure 146/93 167/93 167/93 O2 Sat by Pulse 99 94 98 Oximetry 04/13/22 04/13/22 04/13/22 02:21 02:30 02:41 Temperature Pulse Rate 100 H 101 H 102 H Pulse Rate [ From Monitor] Respiratory 24 28 H 28 H Rate Blood Pressure 171/92 169/90 169/90 O2 Sat by Pulse 99 95 99 Oximetry 04/13/22 04/13/22 04/13/22 02:51 03:00 03:11 Temperature Pulse Rate 99 H 93 H 95 H Pulse Rate [ From Monitor] Respiratory 21 20 21 Rate Blood Pressure 167/94 140/81 140/81 O2 Sat by Pulse 98 94 98 Oximetry 04/13/22 04/13/22 04/13/22 03:21 03:30 03:41 Temperature Pulse Rate 96 H 96 H 97 H Pulse Rate [ From Monitor] Respiratory 21 22 23 Rate Blood Pressure 148/84 146/84 146/84 O2 Sat by Pulse 98 94 98 Oximetry 04/13/22 04/13/22 04/13/22 03:51 03:52 04:00 Temperature 100.2 F H Pulse Rate 98 H 97 H 97 H Pulse Rate [ From Monitor] Respiratory 22 24 Rate Blood Pressure 140/86 140/86 149/87 O2 Sat by Pulse 98 98 94 Oximetry 04/13/22 04/13/22 04/13/22 04:11 04:21 04:30 Temperature Pulse Rate 99 H 98 H 101 H Pulse Rate [ From Monitor] Respiratory 24 23 22 Rate Blood Pressure 149/87 170/88 186/90 O2 Sat by Pulse 98 98 95 Oximetry 04/13/22 04/13/22 04/13/22 04:41 04:51 05:00 Temperature Pulse Rate 101 H 101 H 101 H Pulse Rate [ From Monitor] Respiratory 23 23 24 Rate Blood Pressure 186/90 171/89 178/92 O2 Sat by Pulse 98 98 93 Oximetry 04/13/22 04/13/22 04/13/22 05:11 05:21 05:27 Temperature Pulse Rate 104 H 112 H Pulse Rate [ From Monitor] Respiratory 28 H 26 H Rate Blood Pressure 178/92 188/94 188/94 O2 Sat by Pulse 98 98 Oximetry 04/13/22 04/13/22 04/13/22 05:30 05:41 05:51 Temperature Pulse Rate 110 H 113 H 110 H Pulse Rate [ From Monitor] Respiratory 28 H 29 H 29 H Rate Blood Pressure 186/82 186/82 181/82 O2 Sat by Pulse 95 98 98 Oximetry 04/13/22 04/13/22 04/13/22 06:00 06:11 06:21 Temperature Pulse Rate 113 H 109 H 112 H Pulse Rate [ 110 H From Monitor] Respiratory 31 H 28 H 28 H Rate Blood Pressure 190/82 190/82 177/78 O2 Sat by Pulse 96 98 98 Oximetry 04/13/22 04/13/22 04/13/22 06:30 06:41 06:51 Temperature Pulse Rate 110 H 109 H 107 H Pulse Rate [ From Monitor] Respiratory 26 H 26 H 25 H Rate Blood Pressure 174/74 174/74 151/71 O2 Sat by Pulse 95 98 97 Oximetry 04/13/22 04/13/22 04/13/22 07:00 07:11 07:21 Temperature Pulse Rate 108 H 105 H 105 H Pulse Rate [ From Monitor] Respiratory 26 H 25 H 25 H Rate Blood Pressure 161/76 161/76 174/84 O2 Sat by Pulse 95 97 97 Oximetry 04/13/22 04/13/22 04/13/22 07:29 07:30 07:41 Temperature Pulse Rate 106 H 106 H 105 H Pulse Rate [ From Monitor] Respiratory 25 H 26 H Rate Blood Pressure 140/78 140/78 140/78 O2 Sat by Pulse 97 95 97 Oximetry 04/13/22 04/13/22 04/13/22 07:51 07:52 07:55 Temperature 101.9 F H Pulse Rate 105 H 105 H Pulse Rate [ From Monitor] Respiratory 26 H Rate Blood Pressure 143/80 O2 Sat by Pulse 97 Oximetry 04/13/22 04/13/22 08:00 08:11 Temperature Pulse Rate 108 H 105 H Pulse Rate [ From Monitor] Respiratory 27 H 26 H Rate Blood Pressure 155/84 155/84 O2 Sat by Pulse 93 97 Oximetry - Lab 04/13/22 04:13 04/13/22 04:13 Most recent lab results ABG pH 7.442 pH Units (7.350-7.450) 04/13/22 04:03 ABG pCO2 40.5 mm Hg 04/13/22 04:03 ABG pO2 66.8 mm Hg (80.0-90.0) L 04/13/22 04:03 ABG HCO3 27.0 mmol/L (20.0-26.0) H 04/13/22 04:03 ABG O2 Saturation 95.7 % (95.0-99.0) 04/13/22 04:03 Calcium 8.4 mg/dL (8.4-10.2) 04/13/22 04:13 Phosphorus 2.70 mg/dL (2.5-4.5) D 04/12/22 13:32 Magnesium 3.80 mg/dL (1.7-2.3) H 04/11/22 06:30 Medications & Allergies - Medications Allergies/Adverse Reactions: Allergies No Known Allergies Allergy (Unverified 04/11/22 03:43) Active Medications: Generic Name Dose Route Start Last Admin Trade Name Freq PRN Reason Stop Dose Admin Acetaminophen 650 mg 04/11/22 06:00 04/13/22 06:32 Acetaminophen 325 Mg Tab PO 650 mg Q4H PRN Administration Pain MILD(1-3)/Fever >100.5/TORRES Albuterol 2.5 mg 04/11/22 05:30 Albuterol 2.5 Mg/3 Ml Nebu Q3HRT PRN Shortness Of Breath Aspirin 325 mg 04/12/22 11:00 04/12/22 10:33 Aspirin 325 Mg Tab FEEDTUBE 325 mg QDAY VERNON Administration Atorvastatin Calcium 40 mg 04/12/22 22:00 04/12/22 22:58 Atorvastatin 40 Mg Tab FEEDTUBE 40 mg QHS VERNON Administration Dextrose 50 ml 04/12/22 14:35 Dextrose 50% In Water (25gm) 50 Ml Syringe IV Q30MIN PRN Hypoglycemia Protocol Famotidine 10 mg 04/12/22 22:00 04/12/22 22:58 Famotidine 10 Mg Tab FEEDTUBE 10 mg BID VERNON Administration Fentanyl 50 mcg 04/11/22 18:25 04/13/22 06:25 Fentanyl 100 Mcg/2 Ml Inj IV 50 mcg Q10MIN PRN Administration ANALGESIA Haloperidol Lactate 5 mg 04/11/22 11:25 04/11/22 11:43 Haloperidol Lactate 5 Mg/1 Ml Inj IV 5 mg Q6H PRN Administration Agitation Heparin Sodium (Porcine) 5,000 unit 04/11/22 10:00 04/12/22 22:57 Heparin 5,000 Unit/1 Ml Vial SUB-Q 5,000 unit Q12HR VERNON Administration Hydralazine HCl 10 mg 04/12/22 14:00 04/13/22 05:27 Hydralazine 20 Mg/1 Ml Inj IV 10 mg Q4H PRN Administration Hypertension Hydrophilic Ointment 1 applic 04/11/22 18:25 Lip Therapy Vaseline TP Q2HR PRN Dry Lips Dexmedetomidine HCl 200 mcg/ 50 mls @ 7.258 mls/hr 04/11/22 10:00 04/12/22 00:07 Sodium Chloride IV 0 mcg/kg/hr TITRATE VERNON 0 mls/hr Titration Protocol 0.2 MCG/KG/HR Fentanyl Citrate 2,000 mcg in 100 mls @ 7.258 mls/hr 04/11/22 19:00 Fentanyl Drip Premix IV TITR VERNON Protocol 1 MCG/KG/HR Vasopressin 20 unit/ Sodium 101 mls @ 9.09 mls/hr 04/12/22 00:02 Chloride IV TITR VERNON Protocol 0.03 UNITS/MIN NORepinephrine/NS 8 MG-250 ML 8 mg in 250 mls @ 3.75 mls/hr 04/12/22 01:42 Norepinephrine/Ns 8 Mg-250 Ml (Double Conc) IV TITRATE VERNON Protocol 2 MCG/MIN Ceftriaxone Sodium 2 gm in 100 mls @ 200 mls/hr 04/12/22 11:00 04/12/22 10:18 Rocephin/Ns 2 Gm/100 Ml IV 200 mls/hr Q24H VERNON Administration Protocol Nicardipine HCl 50 mg/ Sodium 250 mls @ 25 mls/hr 04/12/22 11:00 04/13/22 08:19 Chloride IV 15 mg/hr TITR VERNON 75 mls/hr Administration Protocol 5 MG/HR Azithromycin 500 mg in 250 mls @ 250 mls/hr 04/12/22 12:00 04/12/22 12:39 Zithromax/Ns IV 250 mls/hr Q24H VERNON Administration Protocol Potassium Chloride 20 meq/ 1,010 mls @ 75 mls/hr 04/13/22 08:20 Dextrose IV DIRECT VERNON Insulin Glargine 25 units 04/13/22 22:00 Insulin Glargine 100 Units/Ml SUB-Q QHS VERNON Insulin Human Lispro 0 unit 04/12/22 18:00 04/13/22 05:57 Insulin Lispro 100 Unit/Ml SUB-Q 8 unit Q6HR VERNON Administration Protocol Lorazepam 2 mg 04/11/22 08:30 04/11/22 12:28 Lorazepam 2 Mg/Ml Vial IV 2 mg Q4H PRN Administration Agitation Metoprolol Tartrate 12.5 mg 04/12/22 11:00 04/12/22 22:58 Metoprolol Tartrate 25 Mg Tab FEEDTUBE 12.5 mg BID VERNON Administration Morphine Sulfate 2 mg 04/11/22 06:00 Morphine 2 Mg/1 Ml Inj IV Q4H PRN Pain, Moderate (4-6) Morphine Sulfate 4 mg 04/11/22 06:00 Morphine 4 Mg/1 Ml Inj IV Q4H PRN Pain , Severe (7-10) Multi-Ingred Cream/Lotion/Oil/Oint 1 applic 04/11/22 18:25 Mineral Oil/Petrolatum, White Ophth Oint 3.5 Gm OU Q4HR PRN Dry Eye(s) Nitroglycerin 0.4 mg 04/11/22 06:00 Nitroglycerin 0.4 Mg Tab Subl SL Q5M PRN Chest Pain Ondansetron HCl 4 mg 04/11/22 06:00 Ondansetron 4 Mg/2 Ml Inj IV Q8H PRN Nausea And Vomiting Senna/Docusate Sodium 1 tab 04/11/22 22:00 04/12/22 22:58 Sennosides/Docusate Sodium 8.6/50 Mg Tab FEEDTUBE 1 tab BID VERNON Administration Sodium Chloride 10 ml 04/11/22 10:00 04/12/22 22:58 Sodium Chloride 0.9% 10 Ml Flush Syringe IV 10 ml BID VERNON Administration Sodium Chloride 10 ml 04/11/22 06:00 Sodium Chloride 0.9% 10 Ml Flush Syringe IV PRN PRN LINE FLUSH
--- NOTE | 2022-04-13 08:29 | Event Note ---
Date: 04/13/22 CT head read noted, contact was made with Dr. Gutierrez (neurosurgery) and sent over image for review. He indicated that the patient will need to be transferred [facility]. Dr. Rodriguez made contact with [place] and patient has been accepted for transfer under accepting physician Dr. Garcia.
--- NOTE | 2022-04-13 08:43 | Discharge Summary ---
Providers - Providers Date of Admission: 04/11/22 05:16 Date of discharge: 04/13/22 Attending physician: ABNER RODRIGUEZ MD 04/11/22 Consult to Cardiac Rehabilitation [CONS] Routine Reason For Exam: Phase I 04/11/22 05:15 Consult to Physician [CONS] Routine Comment: dr. yi o/c bobbi Consulting Provider: JELENA FOSTER Physician Instructions: Reason For Exam: murali Consult to Physician [CONS] Routine Comment: danilo/ bobbi Consulting Provider: VICTOR M GRIDER Physician Instructions: Reason For Exam: Hyperosmolar nonketotic coma 04/11/22 05:16 Consult to Cardiology [CONS] Routine Consulting Provider: DANY MATHEWS Reason For Exam: Elevated troponin Consult to Dietitian/Nutrition [CONS] Routine Physician Instructions: Reason For Exam: DKA Reason for Consult: Nutrition Recommendations Reason for Consult: Diet education 04/11/22 18:25 Consult to Dietitian/Nutrition [CONS] Routine Physician Instructions: Reason For Exam: Reason for Consult: Evaluate nutritional intake 04/12/22 09:45 Consult to PICC Line RN [CONS] Routine Reason For Exam: meds requiring central access Type Line:: PICC Primary care physician: NEHAL RIVERO Hospitalization Condition: Serious Hospital course: This is this is a 52-year-old female with DM, HTN who presented to the emergency department on 04/11 with complaints of headache and altered mental status. Patient reportedly lives in his car [place] and was found to have decreased responsiveness by friend. In the emergency department patient stated that he had a headache for the past 2 days was expressing syncopal episode since 04/10. Work-up in the emergency department revealed hyperglycemia at 1147, elevated BUN/creatinine at 3.1/53, metabolic acidosis with bicarb of 23, anion gap elevated at 31, troponin 0.0100. Patient was admitted to the hospitalist service with consults to CCM, cardiology and nephrology with HHN K, acute metabolic encephalopathy, acute kidney injury. On 04/11 patient was agitated and pulled his IV access, Ativan every 4hrs PRN ordered, elevated WBC 19 and blood culture ordered. In the afternoon RN nurse alerted provider of restless and agitated behavior and was given Ativan 2mg at 12:28 pm and on precedex for sedation. At 1300pm on 04/11 his blood pressure dropped 67/49 with map of 41, shallow breathing noted and patient was not responsive therfore ramazicon 0.2mg given IV given, NS bolus given with improved condition, stable breathing at regular rate, blood pressure improved 81/47 and 95/64 with map of 71. However RN patient noted to have agonal breathing with moments of apnea which eventually progressed to respiratory arrest and subsequent cardiac arrest. Patient was intubated by anesthesia at bedside. On 04/12 he was transitioned to off insulin drip, not following any commands and severely hypertensive with SBP 200 and given as needed labetalol and hydralazine given with out significant improvement. Patient eventually needed to be initiated on nicardipine drip for blood pressure control. However, given inability to follow commands coupled with hypertension, stat CT head ordered. And patient started on azithromycin in addition to Rocephin due to leukocytosis, febrile possible aspiration on 04/11. CT head of the brain showed evolving cerebral infarcts larger on the left with associated mass-effect, mild effacement of the fourth ventricle and quadrigeminal cistern. These findings were noted on 04/13 communication neurosurgeon, Dr. Gutierrez who upon review of imaging recommended transfer to [facility] for further management. Dr. Rodriguez, hospitalist, contacted [facility] and patient has been accepted to [facility] into the neuro ICU by Dr. Garcia. Care will be transferred to [facility]. A/P Neuro: Acute CVA -S/p Precedex drip -As needed Ativan -Avoid delirium -Reorientation as needed -Maintain sleep-wake cycle -As needed analgesia -Initial CT head showed no acute findings -Repeat CT head 04/12 showed findings compatible with evolving cerebellar infarcts from 04/11/2020, much larger on the left, evolving infarcts involving basal ganglia bilaterally, larger on the right, no clear CT evidence of hemorrhagic transformation on current exam, associated mass-effect mild effacement in the fourth ventricle and quadrigeminal cistern -Neurology consulted, appreciate recommendations -Neurosurgery, communicated to Dr. Gutierrez about findings and images sent to him for review. -recommended transfer to tertiary facility for further stroke care -Dr. Rodriguez contacted [facility] and Dr. Hernandes has agreed to accept the patient -Dr. Rodriguez updated his sister, Selene Roberto about cur rent events and transfer - 04/13 NIHSS 16 Cardiac: Hypertensive urgency, s/p cardiorespiratory arrest on 04/11, NSTEMI type II, h/o HTN, elevated triglycerides -Cardiology consulted, appreciate recommendations -Blood pressure monitoring per protocol -Nicardipine drip initiated 04/12 -Goal systolic blood pressure less than 160 -Beta-deion, aspirin, statin -Echocardiogram shows EF of 60 to 65%-As needed nitroglycerin -S/p 8 L lactated Ringer bolus -Hydralazine as needed Respiratory: Acute hypoxic respiratory failure, angioedema -CCM consulted, appreciate recommendations -Intubated s/p cardio-respiratory arrest on 04/11 with 8.00 ETT at 20 -A.m. vent settings: Assist-control/PRVC rate 20, tidal volume 500, PEEP 8 FiO2 45% -See RT notes for titration -A.m. ABG and CXR noted -VAP bundle -SPO2 monitoring -IV Pepcid, Benadryl and solu medrol GI: Morbid obesity, moderate protein calorie malnutrition -24 hours +1924 mL -PPI -NTR consulted for tube feedings -BR: Senokot : Acute kidney injury, hypokalemia, hypernatremia, hypermagnesemia -Nephrology consulted, appreciate recommendations -Strict intake and output -Renally dose medications -Avoid nephrotoxic medications -Daily weights -Urine lites pending -fluid deficit 7.6 L 04/12 -D5 W at 75 mL/h changed to D5W with KCL by nephrology but DC this am r/t CVA -Renal ultrasound pending -Trend BMP -Per nephrology MURALI likely due to uncontrolled diabetes, underlying CKD ID: Possible aspiration pneumonia, lactic acidosis -Infectious disease consulted, appreciate recommendation -Antibiotic therapy with azithromycin and Rocephin -f/u blood culture -Monitor WBC and temperature curve Endo: S/p HHNK, h/o DM -S/p insulin drip -Avoid hypoglycemia -A1c 13.1 -SSI -Accu-Cheks q. every 6 -Long-acting insulin, titrate as needed Heme: Leukocytosis, thrombocytopenia -Trend CBC -Transfuse hemoglobin less than 7 -Monitor for signs of bleeding -heparin subq -SCDs to BLE while in bed Disposition: HOME / SELF CARE / HOMELESS Final Discharge Diagnosis (Prints w/discharge instructions): Acute CVA, cardio resp arrest 5/19, acute hypoxic respiratory failure, acute kidney injury, s/p HHNK, hypernatremia, hypertensive urgency Time spent for discharge: 60 Core Measure Documentation - Palliative Care Palliative Care/ Comfort Measures: Not Applicable - Core Measures Any of the following diagnoses?: stroke - Stroke Discharge Requirements Statin for LDL = or >70 mg/dl on DC: Yes Anticoag for atrial fib/atrial flutter: Not Applicable Antithrombotic for ischemic stroke: Yes Exam - Constitutional Vitals: Temp Pulse Resp BP Pulse Ox 101.9 F H 104 H 25 H 155/84 98 04/13/22 07:52 04/13/22 08:18 04/13/22 08:18 04/13/22 08:11 04/13/22 08:18 General appearance: Present: obese - EENT Eyes: Present: PERRL - Neck Neck: Absent: masses or JVD, cervical LAD - Respiratory Respiratory effort: normal Respiratory: bilateral: diminished - Cardiovascular Rhythm: regular Heart Sounds: Present: S1 & S2. Absent: systolic murmur, diastolic murmur - Extremities Extremities: no ischemia, pulses intact, pulses symmetrical, No edema, normal temperature, normal color Peripheral Pulses: within normal limits - Abdominal General gastrointestinal: Present: soft, non-tender, non-distended, normal bowel sounds - Integumentary Integumentary: Present: clear, warm, dry - Musculoskeletal Musculoskeletal: other (CAYETANO) - Psychiatric Psychiatric: other (CAYETANO, nonverbal, intubated) - Neurologic Neurologic: other (Pupils equal and reactive, intact cough/gag, no response to painful stimuli (sternal rub or nailbed pressure)) - Allied Health Allied health notes reviewed: nursing, RT, social work Plan Activity: advance as tolerated Diet: per dietitian instruction Special Instructions: record daily weights, record daily BP diary Additional Instructions: Care being transferred to [facility] under Dr. Garcia to neuro ICU Follow up with: NEHAL RIVERO MD [Primary Care Provider] - 7 Days
[2022-04-13] MEDS ORDERED: DEXTROSE 5% IN WATER 1,000 ML with POTASSIUM CHLORIDE 20 MEQ IV SCH (09:00)
[2022-04-13] MEDS: ASPIRIN 325 MG TAB FEEDTUBE SCH (10:21)
[2022-04-13] MEDS: cefTRIAXone/NS 2 GM/100 ML 2 GM/100 ML BAG IV SCH (10:21)
[2022-04-13] MEDS: FAMOTIDINE 10 MG TAB FEEDTUBE SCH (10:21)
[2022-04-13] MEDS: SENNOSIDES/DOCUSATE SODIUM 8.6/50 MG TAB FEEDTUBE SCH (10:21)
[2022-04-13] MEDS: METOPROLOL TARTRATE 25 MG TAB FEEDTUBE SCH (10:22)
[2022-04-13] MEDS: HEPARIN 5,000 UNIT/1 ML VIAL SUB-Q SCH (10:22)
--- NOTE | 2022-04-13 11:46 | Progress Note ---
Assessment and Plan 52 y/o obese male, admitted with elevated blood sugar, acute renal failure 04/13/22: Transfer to [place] for higher level of care. Let sodium drift up on its on. Glucose remains elevated, may need to restart insulin drip. WIll give Lantus 10 when he comes back from CT scan. 1. IVF per Renal 2. Started on insulin drip but likely just need volume 3. Check A1c 4. Will order some PRN haldol, if helps can schedule 5. Guarded prognosis CCT 31 Subjective Date of service: 04/13/22 Principal diagnosis: HHNKS, AMS, NSTEMI type 2, ARF Interval history: ct done but results not called to unit. Large stroke with mass effect. Neurosurgery consulted and recommended transfer. Patient accepted to [place] [facility]. Down for CTA of head and neck now. Objective Vital Signs - 12hr 04/12/22 04/12/22 04/13/22 23:41 23:51 00:00 Temperature 100.2 F H Pulse Rate 96 H 90 86 Pulse Rate [ From Monitor] Respiratory 23 24 25 H Rate Blood Pressure 145/85 138/80 147/81 O2 Sat by Pulse 98 98 98 Oximetry 04/13/22 04/13/22 04/13/22 00:10 00:11 00:21 Temperature Pulse Rate 87 85 85 Pulse Rate [ From Monitor] Respiratory 23 23 Rate Blood Pressure 138/80 147/81 150/89 O2 Sat by Pulse 98 98 98 Oximetry 04/13/22 04/13/22 04/13/22 00:30 00:41 00:51 Temperature Pulse Rate 84 86 87 Pulse Rate [ From Monitor] Respiratory 22 22 26 H Rate Blood Pressure 138/80 138/80 139/83 O2 Sat by Pulse 94 98 99 Oximetry 04/13/22 04/13/22 04/13/22 01:00 01:11 01:21 Temperature Pulse Rate 89 92 H 93 H Pulse Rate [ From Monitor] Respiratory 25 H 27 H 27 H Rate Blood Pressure 152/87 152/87 157/92 O2 Sat by Pulse 98 99 99 Oximetry 04/13/22 04/13/22 04/13/22 01:30 01:41 01:51 Temperature Pulse Rate 94 H 94 H 99 H Pulse Rate [ From Monitor] Respiratory 24 22 28 H Rate Blood Pressure 143/90 143/90 146/93 O2 Sat by Pulse 99 99 Oximetry 04/13/22 04/13/22 04/13/22 02:00 02:11 02:21 Temperature Pulse Rate 98 H 96 H 100 H Pulse Rate [ 110 H From Monitor] Respiratory 25 H 21 24 Rate Blood Pressure 167/93 167/93 171/92 O2 Sat by Pulse 94 98 99 Oximetry 04/13/22 04/13/22 04/13/22 02:30 02:41 02:51 Temperature Pulse Rate 101 H 102 H 99 H Pulse Rate [ From Monitor] Respiratory 28 H 28 H 21 Rate Blood Pressure 169/90 169/90 167/94 O2 Sat by Pulse 95 99 98 Oximetry 04/13/22 04/13/22 04/13/22 03:00 03:11 03:21 Temperature Pulse Rate 93 H 95 H 96 H Pulse Rate [ From Monitor] Respiratory 21 Rate Blood Pressure 140/81 140/81 148/84 O2 Sat by Pulse 94 98 98 Oximetry 04/13/22 04/13/22 04/13/22 03:30 03:41 03:51 Temperature Pulse Rate 96 H 97 H 98 H Pulse Rate [ From Monitor] Respiratory 22 Rate Blood Pressure 146/84 146/84 140/86 O2 Sat by Pulse 94 98 98 Oximetry 04/13/22 04/13/22 04/13/22 03:52 04:00 04:11 Temperature 100.2 F H Pulse Rate 97 H 97 H 99 H Pulse Rate [ From Monitor] Respiratory 24 24 Rate Blood Pressure 140/86 149/87 149/87 O2 Sat by Pulse 98 94 98 Oximetry 04/13/22 04/13/22 04/13/22 04:21 04:30 04:41 Temperature Pulse Rate 98 H 101 H 101 H Pulse Rate [ From Monitor] Respiratory 22 23 Rate Blood Pressure 170/88 186/90 186/90 O2 Sat by Pulse 98 95 98 Oximetry 04/13/22 04/13/22 04/13/22 04:51 05:00 05:11 Temperature Pulse Rate 101 H 101 H 104 H Pulse Rate [ From Monitor] Respiratory 23 24 28 H Rate Blood Pressure 171/89 178/92 178/92 O2 Sat by Pulse 98 93 98 Oximetry 04/13/22 04/13/22 04/13/22 05:21 05:27 05:30 Temperature Pulse Rate 112 H 110 H Pulse Rate [ From Monitor] Respiratory 26 H 28 H Rate Blood Pressure 188/94 188/94 186/82 O2 Sat by Pulse 98 95 Oximetry 04/13/22 04/13/22 04/13/22 05:41 05:51 06:00 Temperature Pulse Rate 113 H 110 H 113 H Pulse Rate [ 110 H From Monitor] Respiratory 29 H 29 H 31 H Rate Blood Pressure 186/82 181/82 190/82 O2 Sat by Pulse 98 98 96 Oximetry 04/13/22 04/13/22 04/13/22 06:11 06:21 06:30 Temperature Pulse Rate 109 H 112 H 110 H Pulse Rate [ From Monitor] Respiratory 28 H 28 H 26 H Rate Blood Pressure 190/82 177/78 174/74 O2 Sat by Pulse 98 98 95 Oximetry 04/13/22 04/13/22 04/13/22 06:41 06:51 07:00 Temperature Pulse Rate 109 H 107 H 108 H Pulse Rate [ From Monitor] Respiratory 26 H 25 H 26 H Rate Blood Pressure 174/74 151/71 161/76 O2 Sat by Pulse 98 97 95 Oximetry 04/13/22 04/13/22 04/13/22 07:11 07:21 07:29 Temperature Pulse Rate 105 H 105 H 106 H Pulse Rate [ From Monitor] Respiratory 25 H 25 H Rate Blood Pressure 161/76 174/84 140/78 O2 Sat by Pulse 97 97 97 Oximetry 04/13/22 04/13/22 04/13/22 07:30 07:41 07:51 Temperature Pulse Rate 106 H 105 H 105 H Pulse Rate [ From Monitor] Respiratory 25 H 26 H 26 H Rate Blood Pressure 140/78 140/78 143/80 O2 Sat by Pulse 95 97 97 Oximetry 04/13/22 04/13/22 04/13/22 07:52 07:55 08:00 Temperature 101.9 F H Pulse Rate 105 H 108 H Pulse Rate [ From Monitor] Respiratory 27 H Rate Blood Pressure 155/84 O2 Sat by Pulse 93 Oximetry 04/13/22 04/13/22 04/13/22 08:11 08:18 08:21 Temperature Pulse Rate 105 H 105 H Pulse Rate [ 104 H From Monitor] Respiratory 26 H 25 H 26 H Rate Blood Pressure 155/84 140/79 O2 Sat by Pulse 97 98 97 Oximetry 04/13/22 04/13/22 04/13/22 08:30 08:41 08:51 Temperature Pulse Rate 103 H 106 H 103 H Pulse Rate [ From Monitor] Respiratory 26 H 26 H 26 H Rate Blood Pressure 157/78 157/78 141/80 O2 Sat by Pulse 93 98 97 Oximetry 04/13/22 04/13/22 04/13/22 09:00 09:11 09:21 Temperature Pulse Rate 102 H 105 H 103 H Pulse Rate [ From Monitor] Respiratory 26 H 27 H 26 H Rate Blood Pressure 155/80 155/80 166/88 O2 Sat by Pulse 91 98 98 Oximetry 04/13/22 04/13/22 04/13/22 09:30 09:41 09:51 Temperature Pulse Rate 103 H 103 H 105 H Pulse Rate [ From Monitor] Respiratory 30 H 26 H 26 H Rate Blood Pressure 142/87 142/87 155/82 O2 Sat by Pulse 94 97 98 Oximetry 04/13/22 04/13/22 04/13/22 10:00 10:11 10:21 Temperature Pulse Rate 109 H 109 H 111 H Pulse Rate [ From Monitor] Respiratory 29 H 26 H 28 H Rate Blood Pressure 180/92 180/92 189/91 O2 Sat by Pulse 92 98 98 Oximetry 04/13/22 04/13/22 04/13/22 10:30 10:41 10:51 Temperature Pulse Rate 111 H 110 H 98 H Pulse Rate [ From Monitor] Respiratory 27 H 28 H 25 H Rate Blood Pressure 183/89 183/89 176/87 O2 Sat by Pulse 93 98 98 Oximetry 04/13/22 04/13/22 11:00 11:08 Temperature Pulse Rate 96 H 97 H Pulse Rate [ From Monitor] Respiratory 24 Rate Blood Pressure 155/84 176/87 O2 Sat by Pulse 94 98 Oximetry CBC and BMP: 04/13/22 04:13 04/13/22 04:13 ABG, PT/INR, D-dimer: ABG ABG pH 7.442 pH Units (7.350-7.450) 04/13/22 04:03 ABG pCO2 40.5 mm Hg 04/13/22 04:03 ABG pO2 66.8 mm Hg (80.0-90.0) L 04/13/22 04:03 ABG O2 Saturation 95.7 % (95.0-99.0) 04/13/22 04:03 PT/INR, D-dimer PT 13.4 Sec. (12.2-14.9) 04/11/22 02:45 INR 0.92 (0.87-1.13) 04/11/22 02:45 D-Dimer < 135.00 ng/mlDDU (0-234) 04/11/22 02:45 Abnormal lab findings: Abnormal Labs 04/11/22 04/11/22 04/11/22 02:45 02:45 02:45 WBC 19.1 H RBC 5.73 H Hgb Hct 48.2 H MCV MCH 26 L MCHC 31 L Plt Count Lymph % (Auto) 8.2 L Bibb # (Auto) 0.9 H Seg Neutrophils % 86.5 H Seg Neuts % (Manual) Lymphocytes % (Manual) Seg Neutrophils # 16.5 H Seg Neutrophils # Man Monocytes # (Manual) APTT 21.0 L ABG pH ABG pO2 ABG HCO3 ABG Base Excess ABG Hemoglobin Oxyhemoglobin Sodium Potassium Chloride 90.3 L Carbon Dioxide BUN 53 H Creatinine 3.1 H Glucose 1147 H* POC Glucose Hemoglobin A1c Lactic Acid Calcium Phosphorus Magnesium AST Total Creatine Kinase 822 H CK-MB (CK-2) 12.7 H Troponin T 0.100 H Total Protein Albumin Triglycerides 527 H HDL Cholesterol 27 L 04/11/22 04/11/22 04/11/22 02:48 04:31 04:31 WBC RBC Hgb Hct MCV MCH MCHC Plt Count Lymph % (Auto) Bibb # (Auto) Seg Neutrophils % Seg Neuts % (Manual) Lymphocytes % (Manual) Seg Neutrophils # Seg Neutrophils # Man Monocytes # (Manual) APTT ABG pH ABG pO2 ABG HCO3 ABG Base Excess ABG Hemoglobin Oxyhemoglobin Sodium Potassium Chloride 93.0 L Carbon Dioxide 20 L BUN 54 H Creatinine 2.8 H Glucose 1084 H* POC Glucose > 600 H Hemoglobin A1c Lactic Acid Calcium 10.3 H Phosphorus 5.10 H Magnesium 3.50 H AST Total Creatine Kinase CK-MB (CK-2) Troponin T Total Protein Albumin Triglycerides HDL Cholesterol 04/11/22 04/11/22 04/11/22 06:30 06:30 07:17 WBC 24.9 H RBC 5.96 H Hgb 15.3 H Hct 48.9 H MCV 82 L MCH 26 L MCHC 31 L Plt Count Lymph % (Auto) Bibb # (Auto) Seg Neutrophils % Seg Neuts % (Manual) 90.0 H Lymphocytes % (Manual) 6.0 L Seg Neutrophils # Seg Neutrophils # Man 22.4 H Monocytes # (Manual) 1.0 H APTT ABG pH ABG pO2 ABG HCO3 ABG Base Excess ABG Hemoglobin Oxyhemoglobin Sodium 147 H Potassium 3.0 L Chloride Carbon Dioxide BUN 54 H Creatinine 2.7 H Glucose 819 H* POC Glucose > 600 H Hemoglobin A1c Lactic Acid Calcium 10.7 H Phosphorus 1.50 L D Magnesium 3.80 H AST Total Creatine Kinase CK-MB (CK-2) Troponin T Total Protein Albumin Triglycerides HDL Cholesterol 04/11/22 04/11/22 04/11/22 08:24 11:16 12:03 WBC RBC Hgb Hct MCV MCH MCHC Plt Count Lymph % (Auto) Bibb # (Auto) Seg Neutrophils % Seg Neuts % (Manual) Lymphocytes % (Manual) Seg Neutrophils # Seg Neutrophils # Man Monocytes # (Manual) APTT ABG pH ABG pO2 ABG HCO3 ABG Base Excess ABG Hemoglobin Oxyhemoglobin Sodium Potassium Chloride Carbon Dioxide BUN Creatinine Glucose POC Glucose > 600 H > 600 H 550 H Hemoglobin A1c Lactic Acid Calcium Phosphorus Magnesium AST Total Creatine Kinase CK-MB (CK-2) Troponin T Total Protein Albumin Triglycerides HDL Cholesterol 04/11/22 04/11/22 04/11/22 13:07 13:07 13:21 WBC RBC Hgb Hct MCV MCH MCHC Plt Count Lymph % (Auto) Bibb # (Auto) Seg Neutrophils % Seg Neuts % (Manual) Lymphocytes % (Manual) Seg Neutrophils # Seg Neutrophils # Man Monocytes # (Manual) APTT ABG pH ABG pO2 ABG HCO3 ABG Base Excess ABG Hemoglobin Oxyhemoglobin Sodium 155 H D Potassium 2.5 L* Chloride 112.8 H Carbon Dioxide BUN 58 H Creatinine 3.3 H Glucose 475 H POC Glucose 406 H Hemoglobin A1c Lactic Acid Calcium 11.1 H Phosphorus Magnesium AST Total Creatine Kinase CK-MB (CK-2) Troponin T 0.466 H* D Total Protein Albumin Triglycerides HDL Cholesterol 04/11/22 04/11/22 04/11/22 14:07 15:27 16:20 WBC RBC Hgb Hct MCV MCH MCHC Plt Count Lymph % (Auto) Bibb # (Auto) Seg Neutrophils % Seg Neuts % (Manual) Lymphocytes % (Manual) Seg Neutrophils # Seg Neutrophils # Man Monocytes # (Manual) APTT ABG pH ABG pO2 ABG HCO3 ABG Base Excess ABG Hemoglobin Oxyhemoglobin Sodium Potassium Chloride Carbon Dioxide BUN Creatinine Glucose POC Glucose 396 H 189 H 140 H Hemoglobin A1c Lactic Acid Calcium Phosphorus Magnesium AST Total Creatine Kinase CK-MB (CK-2) Troponin T Total Protein Albumin Triglycerides HDL Cholesterol 04/11/22 04/11/22 04/11/22 17:08 17:51 18:30 WBC RBC Hgb Hct MCV MCH MCHC Plt Count Lymph % (Auto) Bibb # (Auto) Seg Neutrophils % Seg Neuts % (Manual) Lymphocytes % (Manual) Seg Neutrophils # Seg Neutrophils # Man Monocytes # (Manual) APTT ABG pH ABG pO2 141.9 H ABG HCO3 ABG Base Excess ABG Hemoglobin Oxyhemoglobin Sodium 160 H Potassium 3.0 L Chloride 115.9 H Carbon Dioxide 17 L BUN 57 H Creatinine 3.6 H Glucose 154 H POC Glucose 119 H Hemoglobin A1c Lactic Acid Calcium 10.4 H Phosphorus Magnesium AST Total Creatine Kinase CK-MB (CK-2) Troponin T Total Protein Albumin Triglycerides HDL Cholesterol 04/11/22 04/11/22 04/11/22 20:18 20:18 21:53 WBC 24.8 H RBC 5.84 H Hgb Hct 47.4 H MCV 81 L MCH 26 L MCHC 31 L Plt Count Lymph % (Auto) Bibb # (Auto) Seg Neutrophils % Seg Neuts % (Manual) 91.0 H Lymphocytes % (Manual) 6.0 L Seg Neutrophils # Seg Neutrophils # Man 22.6 H Monocytes # (Manual) APTT ABG pH ABG pO2 ABG HCO3 ABG Base Excess ABG Hemoglobin Oxyhemoglobin Sodium 160 H Potassium 3.4 L Chloride 116.4 H Carbon Dioxide 21 L BUN 58 H Creatinine 4.1 H Glucose 157 H POC Glucose 126 H Hemoglobin A1c Lactic Acid Calcium Phosphorus Magnesium AST Total Creatine Kinase CK-MB (CK-2) Troponin T Total Protein Albumin Triglycerides HDL Cholesterol 04/11/22 04/11/22 04/12/22 23:02 23:02 01:50 WBC RBC Hgb Hct MCV MCH MCHC Plt Count Lymph % (Auto) Bibb # (Auto) Seg Neutrophils % Seg Neuts % (Manual) Lymphocytes % (Manual) Seg Neutrophils # Seg Neutrophils # Man Monocytes # (Manual) APTT ABG pH ABG pO2 ABG HCO3 ABG Base Excess ABG Hemoglobin Oxyhemoglobin Sodium 162 H* Potassium 3.0 L Chloride 118.3 H Carbon Dioxide BUN 57 H Creatinine 4.2 H Glucose POC Glucose 190 H Hemoglobin A1c Lactic Acid 5.20 H* Calcium Phosphorus Magnesium AST Total Creatine Kinase CK-MB (CK-2) Troponin T Total Protein Albumin Triglycerides HDL Cholesterol 04/12/22 04/12/22 04/12/22 03:09 03:27 03:56 WBC RBC Hgb Hct MCV MCH MCHC Plt Count Lymph % (Auto) Bibb # (Auto) Seg Neutrophils % Seg Neuts % (Manual) Lymphocytes % (Manual) Seg Neutrophils # Seg Neutrophils # Man Monocytes # (Manual) APTT ABG pH 7.465 H ABG pO2 71.6 L ABG HCO3 27.0 H ABG Base Excess 3.1 H ABG Hemoglobin 11.2 L Oxyhemoglobin Sodium Potassium Chloride Carbon Dioxide BUN Creatinine Glucose POC Glucose 134 H Hemoglobin A1c Lactic Acid 2.50 H* Calcium Phosphorus Magnesium AST Total Creatine Kinase CK-MB (CK-2) Troponin T Total Protein Albumin Triglycerides HDL Cholesterol 04/12/22 04/12/22 04/12/22 03:56 03:56 04:41 WBC 17.5 H RBC Hgb 11.5 L D Hct MCV 81 L MCH 26 L MCHC Plt Count Lymph % (Auto) Bibb # (Auto) Seg Neutrophils % Seg Neuts % (Manual) 85.0 H Lymphocytes % (Manual) Seg Neutrophils # Seg Neutrophils # Man 14.9 H Monocytes # (Manual) APTT ABG pH ABG pO2 ABG HCO3 ABG Base Excess ABG Hemoglobin Oxyhemoglobin Sodium 160 H Potassium 2.8 L* Chloride 118.6 H Carbon Dioxide BUN 56 H Creatinine 4.5 H Glucose 126 H POC Glucose 137 H Hemoglobin A1c Lactic Acid Calcium Phosphorus Magnesium AST 53 H Total Creatine Kinase CK-MB (CK-2) Troponin T Total Protein 5.0 L Albumin 3.1 L Triglycerides HDL Cholesterol 04/12/22 04/12/22 04/12/22 05:59 06:56 13:32 WBC RBC Hgb Hct MCV MCH MCHC Plt Count Lymph % (Auto) Bibb # (Auto) Seg Neutrophils % Seg Neuts % (Manual) Lymphocytes % (Manual) Seg Neutrophils # Seg Neutrophils # Man Monocytes # (Manual) APTT ABG pH ABG pO2 ABG HCO3 ABG Base Excess ABG Hemoglobin Oxyhemoglobin Sodium Potassium Chloride Carbon Dioxide BUN Creatinine Glucose POC Glucose 125 H 122 H Hemoglobin A1c Lactic Acid 3.10 H* Calcium Phosphorus Magnesium AST Total Creatine Kinase CK-MB (CK-2) Troponin T Total Protein Albumin Triglycerides HDL Cholesterol 04/12/22 04/12/22 04/12/22 13:32 15:13 15:13 WBC RBC Hgb Hct MCV MCH MCHC Plt Count Lymph % (Auto) Bibb # (Auto) Seg Neutrophils % Seg Neuts % (Manual) Lymphocytes % (Manual) Seg Neutrophils # Seg Neutrophils # Man Monocytes # (Manual) APTT ABG pH ABG pO2 ABG HCO3 ABG Base Excess ABG Hemoglobin Oxyhemoglobin Sodium 157 H Potassium Chloride 116.1 H Carbon Dioxide BUN 50 H Creatinine 3.6 H Glucose 116 H POC Glucose Hemoglobin A1c 13.5 H Lactic Acid 2.20 H* Calcium Phosphorus Magnesium AST Total Creatine Kinase CK-MB (CK-2) Troponin T Total Protein Albumin Triglycerides HDL Cholesterol 04/12/22 04/13/22 04/13/22 19:42 04:03 04:13 WBC RBC Hgb Hct MCV MCH MCHC Plt Count Lymph % (Auto) Bibb # (Auto) Seg Neutrophils % Seg Neuts % (Manual) Lymphocytes % (Manual) Seg Neutrophils # Seg Neutrophils # Man Monocytes # (Manual) APTT ABG pH ABG pO2 66.8 L ABG HCO3 27.0 H ABG Base Excess ABG Hemoglobin 12.0 L Oxyhemoglobin 94.0 L Sodium 152 H 146 H Potassium 3.3 L 3.1 L Chloride 112.7 H 107.4 H Carbon Dioxide BUN 42 H 42 H Creatinine 2.9 H 2.9 H Glucose 220 H 361 H POC Glucose Hemoglobin A1c Lactic Acid Calcium Phosphorus Magnesium AST Total Creatine Kinase CK-MB (CK-2) Troponin T Total Protein Albumin Triglycerides HDL Cholesterol 04/13/22 04/13/22 04:13 04:13 WBC 17.1 H RBC Hgb Hct MCV 81 L MCH 26 L MCHC Plt Count 125 L Lymph % (Auto) Bibb # (Auto) Seg Neutrophils % Seg Neuts % (Manual) Lymphocytes % (Manual) Seg Neutrophils # Seg Neutrophils # Man Monocytes # (Manual) APTT ABG pH ABG pO2 ABG HCO3 ABG Base Excess ABG Hemoglobin Oxyhemoglobin Sodium Potassium Chloride Carbon Dioxide BUN Creatinine Glucose POC Glucose Hemoglobin A1c Lactic Acid Calcium Phosphorus Magnesium 2.40 H AST Total Creatine Kinase CK-MB (CK-2) Troponin T Total Protein Albumin Triglycerides HDL Cholesterol
[2022-04-13] MEDS ORDERED: INSULIN GLARGINE 100 UNITS/ML SUB-Q SCH ×3 (12:15→22:00)
[2022-04-13 12:44] LABS: Calcium 8.2 mg/dL (8.4-10.2)
[2022-04-13] MEDS: AZITHROMYCIN/NS 500 MG/250 ML 500 MG/250 ML BAG IV SCH (12:46)
--- NOTE | 2022-04-13 13:23 | Cat Scan Report ---
CTA NECK WITH CONTRAST 04/13/2022 INDICATION / CLINICAL INFORMATION: stroke, basilar artery occlusion. COMPARISON: None. TECHNIQUE: Routine CTA of the neck is performed. 3-D/MIP reformats were postprocessed. Percentage st enosis is determined by direct quantitative measurements of diseased internal carotid artery diameter compared with normal distal internal carotid artery reference segments or by criteria similar to WARNER CET where applicable. All CT scans at this location are performed using CT dose reduction for ALARA b y means of automated exposure control. CONTRAST: 100 ml of Omnipaque 350 FINDINGS: Image resolution is limited due to is suboptimal bolus timing as well as [id number] ratio limita tion secondary to patient body habitus. Carotid bifurcations: No significant abnormality. Carotid arteries: No significant abnormality. Cervical vertebral arteries: Right vertebral artery is relatively hypoplastic, consistent with anatom ic variation. Aortic arch: No significant abnormality. None. IMPRESSION: No significant abnormality. Signer Name: Gerardo Mendez MD Signed: 04/13/2022 1:19 PM Workstation Name: [id number]
--- NOTE | 2022-04-13 13:27 | Cat Scan Report ---
CTA HEAD WITH CONTRAST DATE HISTORY: stroke, basilar artery occlusion. COMPARISON: None. TECHNIQUE: All CT scans at this location are performed using CT dose reduction for ALARA by means of automated exposure control.. 3-D/MIP reformats postprocessed. Percentage stenosis is determined by d irect quantitative measurements of diseased internal carotid artery diameter compared with normal dis vianney internal carotid artery reference segments or by criteria similar to NASCET where applicable. CONTRAST: 100 ml of Omnipaque 350 Image resolution is limited due to is suboptimal bolus timing as well as [id number] ratio limita tion secondary to patient body habitus. FINDINGS: CTA HEAD: Intracranial vertebral arteries: No significant abnormality. Basilar artery: No significant abnormality. No evidence of basilar artery occlusion. Posterior cerebral arteries: Atherosclerotic irregularity is seen along the course of the posterior c erebral arteries bilaterally, more prominently on the left. There is no evidence of vessel occlusion. Intracranial internal carotid arteries: Distal internal carotid artery opacification is somewhat irre gular and limited in visualization at the level of the skull base. It is unclear whether this represe nts evidence of actual stenosis, or is more likely related to some artifactual signal loss. Atheroscl erotic irregularity and calcifications are present along the cavernous portions of the internal carot id arteries bilaterally associated with mild narrowing. Anterior cerebral arteries: No significant abnormality. Middle cerebral arteries: No significant abnormality. Dural venous sinuses:Not optimally opacified. No significant abnormality. Additional findings: None. IMPRESSION: 1. Probable artifactual lack of opacification visualization of distal ICA at the skull base as descri bed above. No evidence of basilar artery occlusion or significant stenosis. Intracranial atherosclerotic changes. Signer Name: Gerardo Mendez MD Signed: 04/13/2022 1:23 PM Workstation Name: [id number]
[2022-04-13] MEDS ORDERED: diphenhydrAMINE 50 MG/ML VIAL IV SCH (14:00)
[2022-04-13] MEDS ORDERED: methylPREDNISolone Sod Succinate 40 MG/1 ML INJ IV SCH (14:00)
[2022-04-13] MEDS ORDERED: SODIUM CHLORIDE 3% 500 ML IV SCH (15:00)
[2022-04-13] MEDS ORDERED: INSULIN REGULAR, HUMAN 100 UNITS/1 ML IV ONE (15:48)
[2022-04-13 17:06] VITALS: BP 173/94
[2022-04-14] MEDS ORDERED: FAMOTIDINE 20 MG/2 ML INJ IV SCH (10:00)
[2022-04-14] MEDS ORDERED: INSULIN GLARGINE 100 UNITS/ML SUB-Q SCH (22:00)
== END 2022-04-13 18:00 | disposition short-term general hospital (02) | DRG 64 ==
LOC: ED 02:22 → CC1 05:16
PROVIDERS: ADMIT Hospitalist; ATTEND Internal Medicine
PROC: 5A1945Z Respiratory Ventilation, 24-96 Consecutive Hours (ICD-10-PCS; 2022-04-11)
PROC: 0BH17EZ Insertion of Endotracheal Airway into Trachea, Via Natural or Artificial Opening (ICD-10-PCS; 2022-04-11)
PROC: 4A033R1 Measurement of Arterial Saturation, Peripheral, Percutaneous Approach (ICD-10-PCS; principal; 2022-04-12)
DX: I63.9 Cerebral infarction, unspecified (principal); G93.41 Metabolic encephalopathy; E11.00 Type 2 diabetes mellitus with hyperosmolarity without nonketotic hyperglycemic-hyperosmolar coma (NKHHC); N17.0 Acute kidney failure with tubular necrosis; J96.01 Acute respiratory failure with hypoxia; I46.9 Cardiac arrest, cause unspecified; J69.0 Pneumonitis due to inhalation of food and vomit; I21.4 Non-ST elevation (NSTEMI) myocardial infarction; Z68.41 Body mass index [BMI] 40.0-44.9, adult; E87.0 Hyperosmolality and hypernatremia; N18.9 Chronic kidney disease, unspecified; R77.8 Other specified abnormalities of plasma proteins; Z82.49 Family history of ischemic heart disease and other diseases of the circulatory system; I12.9 Hypertensive chronic kidney disease with stage 1 through stage 4 chronic kidney disease, or unspecified chronic kidney disease; E11.22 Type 2 diabetes mellitus with diabetic chronic kidney disease; D72.829 Elevated white blood cell count, unspecified; E87.6 Hypokalemia; E83.42 Hypomagnesemia; E66.01 Morbid (severe) obesity due to excess calories; E83.39 Other disorders of phosphorus metabolism; E83.41 Hypermagnesemia
CPT/HCPCS: 36415; 36600; 70450; 70496; 70498; 71045; 74018; 80048; 80053; 80061; 80307; 80320; 81001; 82140; 82550; 82553; 82803; 82805; 82962; 83036; 83735; 84100; 84145; 84484; 85007; 85025; 85027; 85379; 85610; 85730; 87040; 87070; 87205; 93005; 93306; 94002; 94003; A9577; G0378; J3480; J3490; J7121; J7510; Q9967; C8929; G0480; J0360; J0456; J0696; J1200; J1630; J1644; J1815; J2060; J2920; J3010; J7030; J7040; J7050; J7070; J7120

== ENCOUNTER 2022-07-19 10:32 | Emergency (ER) | payer MEDICARE ==
--- NOTE | 2022-07-19 12:51 | Emergency Department Report ---
ED General Adult HPI - General Chief complaint: Dyspnea/Respdistress Stated complaint: PULLED OUT TRACH PUI?: No Time Seen by Provider: 07/19/22 12:41 Source: patient, EMS Mode of arrival: Stretcher Limitations: Altered Mental Status, Physical Limitation - History of Present Illness Initial comments: This is a 52-year-old male with medical history of hypertension who recently had a COVID with trach placement brought in by EMS from [facility] today with concern of trach that came out. Patient states it took it out about 1 week ago and denies any symptoms such as SOB or coughing. Patient states the reason he is here today because his blood pressure is low. Patient himself denies any other discomfort. Patient denies fever chill night sweat dizziness blurred vision lightheadedness headache tinnitus ear pain runny nose sore throat loss of taste loss of smell chest pain palpitation short of breath cough abdominal pain nausea vomiting diarrhea constipation joint pain muscle pain new rash and heat or cold intolerance. Severity scale (0 -10): 0 - Related Data Previous Rx's Medication Instructions Recorded Last Taken Type Aspirin [Aspirin BABY CHEW TAB] 81 mg FEEDTUBE QDAY tab.chew 05/02/22 Unknown Rx AtorvaSTATin [Lipitor] 40 mg FEEDTUBE QHS tablet 05/02/22 Unknown Rx Docusate Sodium [Colace ORAL LIQ] 100 mg PO BID oral.liqd 05/02/22 Unknown Rx Famotidine [Pepcid] 20 mg FEEDTUBE BID tablet 05/02/22 Unknown Rx Insulin Glargine [Lantus VIAL] 40 units SUB-Q QHS units 05/02/22 Unknown Rx Lispro Insulin [HumaLOG] 0 unit SUB-Q Q6HR units 05/02/22 Unknown Rx Melatonin [Melatonin 5MG TAB] 5 mg PO QHS PRN tablet 05/02/22 Unknown Rx amLODIPine 5 mg FEEDTUBE QDAY tablet 05/02/22 Unknown Rx carvediloL [Coreg] 25 mg FEEDTUBE BID tablet 05/02/22 Unknown Rx hydrALAZINE [Apresoline TAB] 100 mg PO TID tab 05/02/22 Unknown Rx lisinopriL [Zestril TAB] 20 mg FEEDTUBE QDAY tablet 05/02/22 Unknown Rx modafiniL [Provigil] 100 mg FEEDTUBE QAM tablet 05/02/22 Unknown Rx Allergies Allergy/AdvReac Type Severity Reaction Status Date / Time Iodinated Contrast Media Allergy Severe Anaphylaxis Verified 07/19/22 10:56 iodine Allergy Severe Anaphylaxis Verified 07/19/22 10:56 ED Review of Systems ROS: Stated complaint: PULLED OUT TRACH Other details as noted in HPI Comment: All other systems reviewed and negative Constitutional: no symptoms reported Eyes: as per HPI ENT: as per HPI Respiratory: no symptoms reported Cardiovascular: as per HPI Endocrine: no symptoms reported Gastrointestinal: as per HPI Genitourinary: as per HPI Musculoskeletal: as per HPI Skin: as per HPI Neurological: as per HPI Psychiatric: as per HPI Hematological/Lymphatic: as per HPI ED Past Medical Hx - Past Medical History Previous Medical History?: Yes Hx Hypertension: Yes Hx Heart Attack/AMI: Yes (s/p cardiac arrest earlier this admission; stable off pressors) Hx Diabetes: Yes Hx Renal Disease: Yes ([facility]OBERT; improved) Hx COPD: No - Social History Smoking Status: Unknown if ever smoked - Medications Home Medications: Home Medications Medication Instructions Recorded Confirmed Last Taken Type Aspirin [Aspirin BABY CHEW TAB] 81 mg FEEDTUBE QDAY tab.chew 05/02/22 Unknown Rx AtorvaSTATin [Lipitor] 40 mg FEEDTUBE QHS tablet 05/02/22 Unknown Rx Docusate Sodium [Colace ORAL LIQ] 100 mg PO BID oral.liqd 05/02/22 Unknown Rx Famotidine [Pepcid] 20 mg FEEDTUBE BID tablet 05/02/22 Unknown Rx Insulin Glargine [Lantus VIAL] 40 units SUB-Q QHS units 05/02/22 Unknown Rx Lispro Insulin [HumaLOG] 0 unit SUB-Q Q6HR units 05/02/22 Unknown Rx Melatonin [Melatonin 5MG TAB] 5 mg PO QHS PRN tablet 05/02/22 Unknown Rx amLODIPine 5 mg FEEDTUBE QDAY tablet 05/02/22 Unknown Rx carvediloL [Coreg] 25 mg FEEDTUBE BID tablet 05/02/22 Unknown Rx hydrALAZINE [Apresoline TAB] 100 mg PO TID tab 05/02/22 Unknown Rx lisinopriL [Zestril TAB] 20 mg FEEDTUBE QDAY tablet 05/02/22 Unknown Rx modafiniL [Provigil] 100 mg FEEDTUBE QAM tablet 05/02/22 Unknown Rx ED Physical Exam - General General appearance: alert, in no apparent distress - Head Head exam: Present: atraumatic, normocephalic, normal inspection - Eye Eye exam: Present: normal appearance, PERRL, EOMI Pupils: Present: normal accommodation - ENT ENT exam: Present: normal exam, mucous membranes moist - Neck Neck exam: Present: normal inspection (Previously trach site appears completely sealed off; appears clean, dry; no discharge, no erythematous rash. ) - Respiratory Respiratory exam: Present: normal lung sounds bilaterally - Cardiovascular Cardiovascular Exam: Present: regular rate - GI/Abdominal GI/Abdominal exam: Present: soft - Extremities Exam Extremities exam: Present: normal inspection, full ROM, normal capillary refill - Back Exam Back exam: Present: normal inspection - Neurological Exam Neurological exam: Present: alert, oriented X3, CN II-XII intact - Psychiatric Psychiatric exam: Present: normal affect, normal mood - Skin Skin exam: Present: normal color ED Course Vital Signs 07/19/22 10:32 Temperature 98.2 F Pulse Rate 98 H Respiratory 16 Rate Blood Pressure 130/90 [Left] O2 Sat by Pulse 98 Oximetry Critical care attestation.: If time is entered above; I have spent that time in minutes in the direct care of this critically ill patient, excluding procedure time. ED Disposition Clinical Impression: Visit for wound check Disposition: 01 HOME / SELF CARE / HOMELESS Is pt being admited?: No Does the pt Need Aspirin: No Condition: Stable Additional Instructions: MAKE A FOLLOW UP APPOINTMENT WITH YOUR PRIMARY CARE PROVIDER AND ALSO GENERAL SURGEON FOR FURTHER OUTPATIENT EVALUATION. RETURN TO ER IF YOU HAVE ANY NEW CONCERNS OR SYMPTOMS. Referrals: CHARLIE KING MD [Staff Physician] - 3-5 Days Time of Disposition: 13:51
[2022-07-19 17:35] VITALS: BP 144/88
== END 2022-07-19 16:55 | disposition home or self-care (01) ==
LOC: ED 10:32
DX: Z43.0 Encounter for attention to tracheostomy (principal); R41.82 Altered mental status, unspecified; I10 Essential (primary) hypertension; E11.9 Type 2 diabetes mellitus without complications; Z88.6 Allergy status to analgesic agent; Z91.041 Radiographic dye allergy status; Z79.899 Other long term (current) drug therapy; Z79.4 Long term (current) use of insulin; Z79.82 Long term (current) use of aspirin
CPT/HCPCS: 99283